=== PATIENT | female | born 1955 | race Caucasian/White ===

== ENCOUNTER → 2017-04-28 | Outpatient (CLI) | payer BC ==
[2017-04-28 10:38] LABS: HCT 37.8 % (34.0-46.0); HGB 12.1 gm/dL (11.4-16.0); MCH 28.7 pg (25.0-35.0); MCHC 32.1 g/dL (31.0-37.0); MCV 89.6 fL (80.0-100.0); Mean Platelet Volume 6.5; Platelet Count 499 k/uL (150-450); RBC 4.22 m/uL (3.80-5.40); RDW 12.6 % (11.5-15.5); WBC 9.3 k/uL (3.8-10.6)
== END | disposition home or self-care (01) ==
LOC: LABWHC1 10:07
PROVIDERS: ATTEND Internal Medicine
DX: K57.92 Diverticulitis of intestine, part unspecified, without perforation or abscess without bleeding (principal)
CPT/HCPCS: 36415; 85027

== ENCOUNTER → 2017-06-16 | Outpatient (CLI) | payer BC ==
--- NOTE | 2017-06-16 10:58 | MM ---
Reason for exam: screening (asymptomatic). Last mammogram was performed 10 years and 4 months ago. Physical Findings: A clinical breast exam by your physician is recommended on an annual basis and results should be correlated with mammographic findings. MG Screening Mammo w CAD Bilateral CC and MLO view(s) were taken. Prior study comparison: February 22, 2007, bilateral screening mammogram w/CAD. October 21, 2005, bilateral screening mammogram w/CAD. There are scattered fibroglandular densities. Finding: There are typically benign round, regional calcifications in both breasts. There is no discrete abnormality. ASSESSMENT: Benign, BI-RAD 2 RECOMMENDATION: Routine screening mammogram of both breasts in 1 year.
== END | disposition home or self-care (01) ==
LOC: RADMAMWWP 07:11
PROVIDERS: ATTEND Internal Medicine
DX: Z12.31 Encounter for screening mammogram for malignant neoplasm of breast (principal)
CPT/HCPCS: 77067

== ENCOUNTER → 2018-07-07 | Outpatient (CLI) | payer BC ==
--- NOTE | 2018-07-10 12:12 | MM ---
Reason for exam: screening (asymptomatic). Last mammogram was performed 1 year and 1 month ago. Physical Findings: A clinical breast exam by your physician is recommended on an annual basis and results should be correlated with mammographic findings. MG Screening Mammo w CAD Bilateral CC and MLO view(s) were taken. Prior study comparison: June 16, 2017, bilateral MG screening mammo w CAD. February 22, 2007, bilateral screening mammogram w/CAD. The breast tissue is heterogeneously dense. This may lower the sensitivity of mammography. No suspicious abnormality on the left. Focal asymmetry of the right upper outer quadrant, 8cm from nipple measuring 1.4cm. ASSESSMENT: Incomplete: need additional imaging evaluation, BI-RAD 0 RECOMMENDATION: Ultrasound of the right breast. (upper outer quadrant) [facility] will attempt to contact patient to return for ultrasound.
== END | disposition home or self-care (01) ==
LOC: RADMAMWWP 16:18
PROVIDERS: ATTEND Internal Medicine
DX: Z12.31 Encounter for screening mammogram for malignant neoplasm of breast (principal)
CPT/HCPCS: 77067

== ENCOUNTER → 2018-07-21 | Outpatient (CLI) | payer BC ==
--- NOTE | 2018-07-24 09:47 | USB ---
Reason for exam: additional evaluation requested from abnormal screening. Physical Findings: Nurse did not find any significant physical abnormalities on exam. US Breast Workup Limited RT Right limited breast ultrasound including focal area of concern, retroareolar and axilla demonstrates no cystic or solid lesion seen. These results were verbally communicated with the patient and result sheet given to the patient on 07/21/18. ASSESSMENT: Negative, BI-RAD 1 RECOMMENDATION: Return to routine screening mammogram schedule for both breasts.
== END | disposition home or self-care (01) ==
LOC: RADUSWWP 14:59
PROVIDERS: ATTEND Internal Medicine
DX: R92.8 Other abnormal and inconclusive findings on diagnostic imaging of breast (principal)

== ENCOUNTER 2018-09-13 06:09 | Emergency (ER) | payer BC ==
[2018-09-13 06:17] VITALS: RESP 19
--- NOTE | 2018-09-13 06:46 | XR ---
EXAM: XR Abdomen, 1 View CLINICAL HISTORY: ITS.REASON XR Reason: abdominal pain TECHNIQUE: Frontal view of the abdomen/pelvis. COMPARISON: No relevant prior studies available. FINDINGS: Gastrointestinal tract: Nonspecific bowel gas pattern. Bones/joints: No acute fracture. IMPRESSION: Nonspecific bowel gas pattern.
[2018-09-13 06:47] LABS: Basophils # (A) 0.1 k/uL (0-0.2); Basophils % (A) 0 %; Eosinophils # (A) 0.2 k/uL (0-0.7); Eosinophils % (A) 2 %; HCT 38.8 % (34.0-46.0); HGB 12.7 gm/dL (11.4-16.0); Lymphocytes # (A) 2.5 k/uL (1.0-4.8); Lymphocytes % (A) 18 %; MCH 28.6 pg (25.0-35.0); MCHC 32.6 g/dL (31.0-37.0); MCV 87.8 fL (80.0-100.0); Mean Platelet Volume 7.2; Monocytes # (A) 0.7 k/uL (0-1.0); Monocytes % (A) 5 %; Neutrophils % (A) 74 %; Platelet Count 358 k/uL (150-450); RBC 4.42 m/uL (3.80-5.40); RDW 12.8 % (11.5-15.5); WBC 13.5 k/uL (3.8-10.6)
[2018-09-13 06:52] LABS: ALT 24 U/L (9-52); AST 21 U/L (14-36); Albumin 4.2 g/dL (3.5-5.0); Alkaline Phosphatase 98 U/L (38-126); Amylase 40 U/L (30-110); Anion Gap 11 mmol/L; Blood Urea Nitrogen 11 mg/dL (7-17); Calcium 9.9 mg/dL (8.4-10.2); Carbon Dioxide 25 mmol/L (22-30); Chloride 104 mmol/L (98-107); Glucose 110 mg/dL (74-99); Lipase 78 U/L (23-300); Potassium 4.2 mmol/L (3.5-5.1); Sodium 140 mmol/L (137-145); Total Bilirubin 1.1 mg/dL (0.2-1.3)
[2018-09-13 07:17] LABS: Appearance,Urine Clear (Clear); Bacteria,Urine Rare /hpf; Bilirubin,Urine Negative (Negative); Blood,Urine Small (Negative); Color,Urine Yellow; Glucose,Urine (UA) Negative (Negative); Hyaline Casts,Urine 14 /lpf (0-2); Ketones,Urine Negative (Negative); Leukocyte Esterase,Urine Moderate (Negative); Mucus,Urine Few /hpf; Nitrite,Urine Negative (Negative); Protein,Urine Trace (Negative); RBC,Urine 9 /hpf (0-5); Specific Gravity,Urine 1.021 (1.001-1.035); Squamous Epithelial Cell,Urine 4 /hpf (0-4); Transitional Epi Cells,Urine <1 /hpf (0-1); WBC,Urine 7 /hpf (0-5)
[2018-09-13] MEDS ORDERED: KETOROLAC 30 MG/ML 1 ML VIAL IVP STA (07:23)
--- NOTE | 2018-09-13 07:23 | ED ---
General Adult HPI - General Chief complaint: Abdominal Pain Stated complaint: abd pain Time Seen by Provider: 09/13/18 07:11 Source: patient Mode of arrival: ambulatory Limitations: no limitations - History of Present Illness Initial comments: Dictation was produced using [employer] dictation software. please excuse any grammatical, word or spelling errors. Chief Complaint: 62-year-old female past medical history diverticulitis, gastritis, GERD presents with abdominal pain. History of Present Illness: Patient reports that she's been having 3 days of abdominal pain. She has history of diverticulitis. Patient's brother is a doctor and remote hernia prescription for Augmentin. She was treated with Augmentin the past for diverticulitis. Patient states she's been having abdominal pain since Tuesday. She states pain reminds her of diverticulitis however the pain is diffuse located to the suprapubic area. Patient denies any vaginal bleeding or vaginal discharge. No diarrhea she had a regular bowel movement yesterday. Patient feels nauseous but no vomiting. She does complain of fevers. She has not tried taking any medications. She completed one day of antibiotic therapy however she reports that her pain symptoms are persistent and that improved. Denies any pattern with food intake. The ROS documented in this emergency department record has been reviewed and confirmed by me. Those systems with pertinent positive or negative responses have been documented in the HPI. All other systems are other negative and/or noncontributory. PHYSICAL EXAM: General Impression: Alert and oriented x3, not in acute distress HEENT: Normocephalic atraumatic, extra-ocular movements intact, pupils equal and reactive to light bilaterally, mucous membranes moist. Cardiovascular: Heart regular rate and rhythm, S1&S2 audible, no murmurs, rubs or gallops Chest: Lungs clear to auscultation bilaterally, no rhonchi, no wheeze, no rales Abdomen: Bowel sounds present, abdomen soft, diffuse abdominal tenderness, non-distended, no organomegaly Musculoskeletal: Pulses present and equal in all extremities, no peripheral edema Motor: no focal deficits noted Neurological: CN II-XII grossly intact, no focal motor or sensory deficits noted Skin: Intact with no visualized rashes Psych: Normal affect and mood ED course: 62-year-old female presents with chief complaint of abdominal pain. She has a history of diverticulitis. Vital signs upon arrival are within acceptable limits. Clinical presentation is not classic for diverticulitis however patient persisted her symptoms are similar to what she expressing the past. Patient fully one day of Augmentin therapy for diverticulitis with no improvement of symptoms. She decision-making made with patient she requests CT abdomen and pelvis be performed. Laboratory evaluation obtained. Leukocytosis of 13.5. Rest CBC unremarkable. Metabolic panel is negative. Urinalysis is suggestive of urinary tract infection.KUB x-ray is nonacute. CT of the abdomen and pelvis shows uncomplicated sigmoid diverticulitis. Patient is well- appearing not showing any signs of sepsis. Patient tolerating by mouth at bedside. Patient prescription for Augmentin because she says lost her prescription. She has by mouth analgesics at home to take whenever needed. Return parameters discussed. Patient clear for discharge. Urine cultures pending patient told to follow-up with urine cultures. She is currently Augmentin which will likely cover for urinary tract infection as well. EKG interpretation: Ventricular rate 71, normal sinus rhythm, CT interval 140, QRS 82, QTC 419. No CT prolongation, no QTC prolongation, no ST or T-wave changes noted. Overall, this EKG is unremarkable - Related Data Home Medications Medication Instructions Recorded Confirmed Omeprazole [PriLOSEC] 20 mg PO AC-BRKFST 02/08/17 09/13/18 Amoxic-Pot Clav 875-125Mg 1 tab PO Q12HR 09/13/18 09/13/18 [Augmentin 875-125] Cholecalciferol [Vitamin D3 (25 5,000 unit PO DAILY 09/13/18 09/13/18 Mcg = 1000 Iu)] Escitalopram [Lexapro] 20 mg PO DAILY 09/13/18 09/13/18 Previous Rx's Medication Instructions Recorded Amoxicillin/Potassium Clav 1 tab PO BID 10 Days #20 tab 09/13/18 [Augmentin 875-125 Tablet] Allergies Allergy/AdvReac Type Severity Reaction Status Date / Time No Known Allergies Allergy Verified 09/13/18 07:34 Review of Systems ROS Statement: Those systems with pertinent positive or pertinent negative responses have been documented in the HPI. ROS Other: All systems not noted in ROS Statement are negative. Past Medical History Past Medical History: Chest Pain / Angina, GERD/Reflux Additional Past Medical History / Comment(s): Gastritis, diverticulosis, diverticulitis. History of Any Multi-Drug Resistant Organisms: None Reported Past Surgical History: Orthopedic Surgery Additional Past Surgical History / Comment(s): EGD, COLONOSCOPY, OVARIAN CYST (1991). right knee torn meniscus, Past Anesthesia/Blood Transfusion Reactions: No Reported Reaction Past Psychological History: Anxiety Smoking Status: Never smoker Past Alcohol Use History: Daily Past Drug Use History: None Reported - Past Family History Mother Family Medical History: Deep Vein Thrombosis (DVT) Additional Family Medical History / Comment(s): Mother is . Father Family Medical History: Cancer, Congestive Heart Failure (CHF) Additional Family Medical History / Comment(s): LYMPHOMA. Father is Daughter(s) Family Medical History: Cancer Additional Family Medical History / Comment(s): THYROID CANCER General Exam Limitations: no limitations Course Vital Signs 09/13/18 06:13 Temperature 98.2 F Pulse Rate 81 Respiratory 19 Rate Blood Pressure 128/77 O2 Sat by Pulse 96 Oximetry Medical Decision Making - Lab Data Result diagrams: 09/13/18 06:31 09/13/18 06:31 Lab Results 09/13/18 09/13/18 09/13/18 Range/Units 06:31 06:31 06:33 WBC 13.5 H (3.8-10.6) k/uL RBC 4.42 (3.80-5.40) m/uL Hgb 12.7 (11.4-16.0) gm/dL Hct 38.8 (34.0-46.0) % MCV 87.8 (80.0-100.0) fL MCH 28.6 (25.0-35.0) pg MCHC 32.6 (31.0-37.0) g/dL RDW 12.8 (11.5-15.5) % Plt Count 358 (150-450) k/uL Neutrophils % 74 % Lymphocytes % 18 % Monocytes % 5 % Eosinophils % 2 % Basophils % 0 % Neutrophils # 10.0 H (1.3-7.7) k/uL Lymphocytes # 2.5 (1.0-4.8) k/uL Monocytes # 0.7 (0-1.0) k/uL Eosinophils # 0.2 (0-0.7) k/uL Basophils # 0.1 (0-0.2) k/uL Sodium 140 (137-145) mmol/L Potassium 4.2 (3.5-5.1) mmol/L Chloride 104 (98-107) mmol/L Carbon Dioxide 25 (22-30) mmol/L Anion Gap 11 mmol/L BUN 11 (7-17) mg/dL Creatinine 0.53 (0.52-1.04) mg/dL Est GFR (CKD-EPI)AfAm >90 (>60 ml/min/1.73 sqM) Est GFR (CKD-EPI)NonAf >90 (>60 ml/min/1.73 sqM) Glucose 110 H (74-99) mg/dL Calcium 9.9 (8.4-10.2) mg/dL Total Bilirubin 1.1 (0.2-1.3) mg/dL AST 21 (14-36) U/L ALT 24 (9-52) U/L Alkaline Phosphatase 98 (38-126) U/L Total Protein 9.0 H (6.3-8.2) g/dL Albumin 4.2 (3.5-5.0) g/dL Amylase 40 (30-110) U/L Lipase 78 (23-300) U/L Urine Color Yellow Urine Appearance Clear (Clear) Urine pH 6.0 (5.0-8.0) Ur Specific [place] 1.021 (1.001-1.035) Urine Protein Trace H (Negative) Urine Glucose (UA) Negative (Negative) Urine Ketones Negative (Negative) Urine Blood Small H (Negative) Urine Nitrite Negative (Negative) Urine Bilirubin Negative (Negative) Urine Urobilinogen 2.0 (<2.0) mg/dL Ur Leukocyte Esterase Moderate H (Negative) Urine RBC 9 H (0-5) /hpf Urine WBC 7 H (0-5) /hpf Ur Squamous Epith Cells 4 (0-4) /hpf Ur Transition Epith Cell <1 (0-1) /hpf Urine Bacteria Rare H (None) /hpf Hyaline Casts 14 H (0-2) /lpf Urine Mucus Few H (None) /hpf Disposition Clinical Impression: Diverticulitis Disposition: HOME SELF-CARE Condition: Good Instructions (If sedation given, give patient instructions): Diverticulitis (ED) Prescriptions: Amoxicillin/Potassium Clav [Augmentin 875-125 Tablet] 1 tab PO BID 10 Days #20 tab Is patient prescribed a controlled substance at d/c from ED?: No Referrals: Nj Pineda MD [Primary Care Provider] - 1-2 days Time of Disposition: 08:26
--- NOTE | 2018-09-13 08:09 | CT ---
EXAMINATION TYPE: CT abdomen pelvis w con DATE OF EXAM: 09/13/2018 COMPARISON: 04/14/2017 HISTORY: Abd pain CT DLP: 885.8 mGycm CONTRAST: CT scan of the abdomen and pelvis is performed without Oral Contrast and with IV Contrast, patient in jected with 100 mL of Isovue 300. FINDINGS: LUNG BASES-: No visible nodule. No infiltrate. LIVER/GB: No calcified gallstones. No space occupying hepatic lesion. Biliary tree is of normal ca liber. PANCREAS: No inflammation. No distinct mass. SPLEEN: No splenic enlargement. No lesion seen. ADRENALS: No nodule. No thickening. KIDNEYS/BLADDER: No hydronephrosis. No nephrolithiasis. No distinct renal mass. Urinary bladder g rossly unremarkable. BOWEL: There is mild inflammatory change about the sigmoid colon compatible with a mild acute sigmoid diverticulitis. No evidence of perforation or abscess. Mild small bowel ileus. Remainder of the colo n and small bowel are of normal caliber. Normal appendix. GENITAL ORGANS: Hysterectomy changes noted. LYMPH NODES: No greater than 1cm abdominal or pelvic lymph nodes are appreciated. AORTA: No significant abnormality. OSSEOUS STRUCTURES: No significant abnormality is seen. OTHER: No significant additional abnormality is seen. IMPRESSION: 1. Mild uncomplicated sigmoid diverticulitis.
[2018-09-13 08:44] VITALS: BP 131/76; PULSE 79; TEMP 98.1
== END 2018-09-13 08:44 | disposition home or self-care (01) ==
LOC: EC 06:09
DX: K57.32 Diverticulitis of large intestine without perforation or abscess without bleeding (principal); D72.829 Elevated white blood cell count, unspecified; K21.9 Gastro-esophageal reflux disease without esophagitis; F41.9 Anxiety disorder, unspecified; Z79.899 Other long term (current) drug therapy
CPT/HCPCS: 36415; 93005; 80053; 82150; 83690; 85025; 81001; 74018; 74177; 99284; 96374; J1885; Q9967

== ENCOUNTER 2018-09-25 02:45 | Inpatient (IN) | payer MEDICARE, BC ==
[2018-09-25] MEDS ORDERED: MORPHINE SULFATE 4 MG/ML SYRINGE IVP STA (03:15)
[2018-09-25] MEDS: SODIUM CHLORIDE 0.9% 500 ML 500 ML IV SCH (03:19)
[2018-09-25 03:28] LABS: Basophils # (A) 0.1 k/uL (0-0.2); Basophils % (A) 0 %; Eosinophils # (A) 0.2 k/uL (0-0.7); Eosinophils % (A) 1 %; HCT 37.8 % (34.0-46.0); Lymphocytes # (A) 2.8 k/uL (1.0-4.8); Lymphocytes % (A) 20 %; MCHC 31.7 g/dL (31.0-37.0); MCV 88.3 fL (80.0-100.0); Mean Platelet Volume 6.7; Monocytes # (A) 0.8 k/uL (0-1.0); Monocytes % (A) 6 %; Neutrophils # (A) 9.7 k/uL (1.3-7.7); Neutrophils % (A) 71 %; Platelet Count 404 k/uL (150-450); RBC 4.28 m/uL (3.80-5.40); RDW 12.7 % (11.5-15.5); WBC 13.7 k/uL (3.8-10.6)
[2018-09-25 03:36] LABS: Appearance,Urine Clear (Clear); Bilirubin,Urine Negative (Negative); Blood,Urine Trace (Negative); Color,Urine Yellow; Glucose,Urine (UA) Negative (Negative); Ketones,Urine Negative (Negative); Leukocyte Esterase,Urine Negative (Negative); Mucus,Urine Rare /hpf; Nitrite,Urine Negative (Negative); Protein,Urine Negative (Negative); RBC,Urine 2 /hpf (0-5); Specific Gravity,Urine 1.015 (1.001-1.035); Squamous Epithelial Cell,Urine 1 /hpf (0-4); Urobilinogen,Urine <2.0 mg/dL (<2.0); WBC,Urine 1 /hpf (0-5)
[2018-09-25 03:43] LABS: ALT 13 U/L (9-52); AST 14 U/L (14-36); African American GFR (CKD) >90 (>60 ml/min/1.73 sqM); Albumin 4.1 g/dL (3.5-5.0); Alkaline Phosphatase 99 U/L (38-126); Blood Urea Nitrogen 11 mg/dL (7-17); Calcium 9.7 mg/dL (8.4-10.2); Carbon Dioxide 28 mmol/L (22-30); Chloride 102 mmol/L (98-107); Glucose 115 mg/dL (74-99); Total Bilirubin 0.5 mg/dL (0.2-1.3); Total Protein 8.5 g/dL (6.3-8.2)
[2018-09-25 03:50] LABS: Anion Gap 9 mmol/L; Potassium 4.4 mmol/L (3.5-5.1); Sodium 139 mmol/L (137-145)
--- NOTE | 2018-09-25 04:25 | CT ---
EXAM: CT Abdomen and Pelvis With Intravenous Contrast CLINICAL HISTORY: ITS.REASON CT Reason: Pain diverticulitis last wee TECHNIQUE: Axial computed tomography images of the abdomen and pelvis with intravenous contrast. CTDI is 18 mGy and DLP is the 140s 7 mGy-cm. This CT exam was performed using one or more of the following dose reduction techniques: automated exposure control, adjustment of the mA and/or kV according to patient size, and/or use of iterative reconstruction technique. COMPARISON: 04/14/17 CT abdomen FINDINGS: Lung bases: No mass. No consolidation. ABDOMEN: Liver: Unremarkable. Gallbladder and bile ducts: Unremarkable. Pancreas: Unremarkable. Spleen: Unremarkable. Adrenals: Unremarkable. Kidneys and ureters: No hydronephrosis. Stomach and bowel: No bowel obstruction. Thickened sigmoid colon with underlying diverticulosis and surrounding inflammatory process. PELVIS: Appendix: No evidence of appendicitis. Bladder: Unremarkable. Reproductive: Unremarkable. ABDOMEN and PELVIS: Intraperitoneal space: Trace pelvic free fluid, likely reactive. Bones/joints: No acute fractures. Soft tissues: Unremarkable. Vasculature: No abdominal aortic aneurysm. Lymph nodes: No enlarged lymph nodes. IMPRESSION: Acute sigmoid diverticulitis. No abscess, perforation, or bowel obstruction.
[2018-09-25] MEDS ORDERED: metroNIDAZOLE-NS PMX 500 MG in SALINE 1 100ML.BAG IVPB STA (04:45)
[2018-09-25] MEDS ORDERED: cefTRIAXone IN SWFI 1,000 MG/10 ML SYRINGE IVP STA (04:45)
--- NOTE | 2018-09-25 04:48 | ED ---
Abdominal Pain HPI - General Chief Complaint: Abdominal Pain Stated Complaint: Abd pain Time Seen by Provider: 09/25/18 03:14 Source: patient Mode of arrival: ambulatory Limitations: physical limitation - History of Present Illness Initial Comments: Lara is a 62-year-old female who presents to the emergency department today for evaluation of left lower quadrant abdominal pain and suprapubic abdominal pain. Patient reports that she was seen and evaluated the end of August and diagnosed with diverticulitis she completed a course of oral Augmentin which she thinks helped and she was pain-free for a few days however since completing the antibiotic last week she's had progressively worsening pain. Pain is associated with intermittent waves of nausea, patient reports she's had soft stools and she was diagnosed with diverticulitis previously and given antibiotics. She denies any constipation. Patient does feel that the pain is worse with any straining have a bowel movement or urinate. Port subjective fevers no chills. Patient has had diverticulitis in the past she's never had any bowel surgeries. - Related Data Home Medications Medication Instructions Recorded Confirmed Omeprazole [PriLOSEC] 20 mg PO AC-BRKFST 02/08/17 09/25/18 Cholecalciferol [Vitamin D3 (25 5,000 unit PO DAILY 09/13/18 09/25/18 Mcg = 1000 Iu)] Escitalopram [Lexapro] 20 mg PO DAILY 09/13/18 09/25/18 Previous Rx's Medication Instructions Recorded Amoxicillin/Potassium Clav 1 tab PO BID 10 Days #20 tab 09/13/18 [Augmentin 875-125 Tablet] Allergies Allergy/AdvReac Type Severity Reaction Status Date / Time No Known Allergies Allergy Verified 09/25/18 02:53 Review of Systems ROS Statement: Those systems with pertinent positive or pertinent negative responses have been documented in the HPI. ROS Other: All systems not noted in ROS Statement are negative. Past Medical History Past Medical History: Chest Pain / Angina, GERD/Reflux Additional Past Medical History / Comment(s): Gastritis, diverticulosis, diverti culitis. History of Any Multi-Drug Resistant Organisms: None Reported Past Surgical History: Orthopedic Surgery Additional Past Surgical History / Comment(s): EGD, COLONOSCOPY, OVARIAN CYST (1991). right knee torn meniscus, Past Anesthesia/Blood Transfusion Reactions: No Reported Reaction Past Psychological History: Anxiety Smoking Status: Never smoker Past Alcohol Use History: Daily Past Drug Use History: None Reported - Past Family History Mother Family Medical History: Deep Vein Thrombosis (DVT) Additional Family Medical History / Comment(s): Mother is . Father Family Medical History: Cancer, Congestive Heart Failure (CHF) Additional Family Medical History / Comment(s): LYMPHOMA. Father is Daughter(s) Family Medical History: Cancer Additional Family Medical History / Comment(s): THYROID CANCER General Exam - General Exam Comments Initial Comments: Physical Exam GENERAL: Patient is well-developed and well-nourished. Patient is nontoxic and well- hydrated and is in no distress. Appears uncomfortable HENT: Normocephalic, Atraumatic. EYES: PERRL, EOMI PULMONARY: Unlabored respirations. No audible rales rhonchi or wheezing was noted. CARDIOVASCULAR: There is a regular rate and rhythm without any murmurs gallops or rubs. ABDOMEN: Soft with normal bowel sounds. Tenderness to palpation of the bilateral lower quadrants worse on the left and suprapubic region SKIN: Skin is clear with no lesions or rashes and otherwise unremarkable. : Deferred NEUROLOGIC: Patient is alert and oriented x3. Moving all extremities spontaneously MUSCULOSKELETAL: Normal extremities with adequate strength and full range of motion. No lower extremity swelling or edema. No calf tenderness. PSYCHIATRIC: Normal psychiatric evaluation. Limitations: physical limitation Course Vital Signs 09/25/18 09/25/18 02:46 05:04 Temperature 98.2 F 99.1 F Pulse Rate 85 71 Respiratory 18 18 Rate Blood Pressure 132/84 123/73 O2 Sat by Pulse 95 95 Oximetry Medical Decision Making - Medical Decision Making The patient was seen and evaluated history is obtained from the patient and at bedside and review of medical record neck signs pulse is 62-year-old female with history concerning for recurrent versus incompletely treated diverticulitis. Repeat labs and imaging were obtained. Labs reveal leukocytosis, CT imaging confirms an uncomplicated diverticulitis with no signs of perforation or abscess. Given the patient is arty completed a course of Augmentin I do feel she warrants admission to the hospital for IV antibiotics. This plan was discussed with the patient who is agreeable. Patient reports minimal improvement in her pain with morphine was given a dose of Dilaudid. Patient care was discussed with admitting physician Dr. Gómez who accepts admission for recurrent diverticulitis which failed outpatient oral antibiotic therapy. - Lab Data Result diagrams: 09/25/18 03:15 09/25/18 03:15 Lab Results 09/25/18 09/25/18 09/25/18 Range/Units 03:15 03:15 03:15 WBC 13.7 H (3.8-10.6) k/uL RBC 4.28 (3.80-5.40) m/uL Hgb 12.0 (11.4-16.0) gm/dL Hct 37.8 (34.0-46.0) % MCV 88.3 (80.0-100.0) fL MCH 28.0 (25.0-35.0) pg MCHC 31.7 (31.0-37.0) g/dL RDW 12.7 (11.5-15.5) % Plt Count 404 (150-450) k/uL Neutrophils % 71 % Lymphocytes % 20 % Monocytes % 6 % Eosinophils % 1 % Basophils % 0 % Neutrophils # 9.7 H (1.3-7.7) k/uL Lymphocytes # 2.8 (1.0-4.8) k/uL Monocytes # 0.8 (0-1.0) k/uL Eosinophils # 0.2 (0-0.7) k/uL Basophils # 0.1 (0-0.2) k/uL Sodium 139 (137-145) mmol/L Potassium 4.4 (3.5-5.1) mmol/L Chloride 102 (98-107) mmol/L Carbon Dioxide 28 (22-30) mmol/L Anion Gap 9 mmol/L BUN 11 (7-17) mg/dL Creatinine 0.58 (0.52-1.04) mg/dL Est GFR (CKD-EPI)AfAm >90 (>60 ml/min/1.73 sqM) Est GFR (CKD-EPI)NonAf >90 (>60 ml/min/1.73 sqM) Glucose 115 H (74-99) mg/dL Plasma Lactic Acid [place] 1.1 (0.7-2.0) mmol/L Calcium 9.7 (8.4-10.2) mg/dL Total Bilirubin 0.5 (0.2-1.3) mg/dL AST 14 (14-36) U/L ALT 13 (9-52) U/L Alkaline Phosphatase 99 (38-126) U/L Total Protein 8.5 H (6.3-8.2) g/dL Albumin 4.1 (3.5-5.0) g/dL Urine Color Urine Appearance (Clear) Urine pH (5.0-8.0) Ur Specific [place] (1.001-1.035) Urine Protein (Negative) Urine Glucose (UA) (Negative) Urine Ketones (Negative) Urine Blood (Negative) Urine Nitrite (Negative) Urine Bilirubin (Negative) Urine Urobilinogen (<2.0) mg/dL Ur Leukocyte Esterase (Negative) Urine RBC (0-5) /hpf Urine WBC (0-5) /hpf Ur Squamous Epith Cells (0-4) /hpf Urine Mucus (None) /hpf 09/25/18 Range/Units 03:15 WBC (3.8-10.6) k/uL RBC (3.80-5.40) m/uL Hgb (11.4-16.0) gm/dL Hct (34.0-46.0) % MCV (80.0-100.0) fL MCH (25.0-35.0) pg MCHC (31.0-37.0) g/dL RDW (11.5-15.5) % Plt Count (150-450) k/uL Neutrophils % % Lymphocytes % % Monocytes % % Eosinophils % % Basophils % % Neutrophils # (1.3-7.7) k/uL Lymphocytes # (1.0-4.8) k/uL Monocytes # (0-1.0) k/uL Eosinophils # (0-0.7) k/uL Basophils # (0-0.2) k/uL Sodium (137-145) mmol/L Potassium (3.5-5.1) mmol/L Chloride (98-107) mmol/L Carbon Dioxide (22-30) mmol/L Anion Gap mmol/L BUN (7-17) mg/dL Creatinine (0.52-1.04) mg/dL Est GFR (CKD-EPI)AfAm (>60 ml/min/1.73 sqM) Est GFR (CKD-EPI)NonAf (>60 ml/min/1.73 sqM) Glucose (74-99) mg/dL Plasma Lactic Acid [place] (0.7-2.0) mmol/L Calcium (8.4-10.2) mg/dL Total Bilirubin (0.2-1.3) mg/dL AST (14-36) U/L ALT (9-52) U/L Alkaline Phosphatase (38-126) U/L Total Protein (6.3-8.2) g/dL Albumin (3.5-5.0) g/dL Urine Color Yellow Urine Appearance Clear (Clear) Urine pH 6.0 (5.0-8.0) Ur Specific [place] 1.015 (1.001-1.035) Urine Protein Negative (Negative) Urine Glucose (UA) Negative (Negative) Urine Ketones Negative (Negative) Urine Blood Trace H (Negative) Urine Nitrite Negative (Negative) Urine Bilirubin Negative (Negative) Urine Urobilinogen <2.0 (<2.0) mg/dL Ur Leukocyte Esterase Negative (Negative) Urine RBC 2 (0-5) /hpf Urine WBC 1 (0-5) /hpf Ur Squamous Epith Cells 1 (0-4) /hpf Urine Mucus Rare H (None) /hpf Disposition Clinical Impression: Diverticulitis Disposition: ADMITTED IP TO THIS [facility] Condition: Stable Is patient prescribed a controlled substance at d/c from ED?: No Referrals: Nj Pineda MD [Primary Care Provider] - 1-2 days
[2018-09-25] MEDS ORDERED: HYDROmorphone 0.5 MG/0.5 ML SYRINGE IVP STA (05:29)
[2018-09-25] MEDS ORDERED: NALOXONE 0.4 MG/ML 1 ML VIAL IV PRN (05:35)
[2018-09-25] MEDS ORDERED: HYDROcodone/APAP 5-325MG 1 EACH TAB PO PRN (07:10)
[2018-09-25] MEDS ORDERED: SODIUM CHLORIDE 0.9% 1,000 ML IV SCH (07:15)
--- NOTE | 2018-09-25 07:31 | P.HPIM ---
History of Present Illness H&P Date: 09/25/18 Chief Complaint: Lower abdominal pain 62-year-old female with history of recurrent diverticulitis since 2007. Chronic GERD Patient coming in today due to worsening lower abdominal pain. She describes as sharp 8 out of 10 radiating to the rest of the abdomen but mainly in the lower abdomen. No specific exacerbating or relieving factors, pain associated with nausea but no vomiting. Patient denies any diarrhea or GI bleeding. Patient denies any urinary changes. Denies any fevers reports some chills. Patient was seen in the ED 2 weeks ago and was diagnosed with recurrent diverticulitis she was placed on some Augmentin for 10 days which helped improve the pain toward the end of her antibiotic course which she finished 4 days ago however pain got worse again 2 days ago and she decided to come to the hospital for evaluation. Otherwise patient denies any chest pain or trouble breathing denies any coughing denies any focal neurologic deficits. Patient does report recent history of diarrhea while taking the antibiotic however this was resolved once she finished antibiotic course. Malick martin denies any history of C. diff. In the ED computed tomography scan of the abdomen confirmed acute diverticulitis with no observed, complications Review of Systems Pertinent positives as noted in HPI. All other systems were reviewed and are negative Past Medical History Past Medical History: Chest Pain / Angina, GERD/Reflux Additional Past Medical History / Comment(s): Gastritis, diverticulosis, diverticulitis. History of Any Multi-Drug Resistant Organisms: None Reported Past Surgical History: Orthopedic Surgery Additional Past Surgical History / Comment(s): EGD, COLONOSCOPY, OVARIAN CYST ( 1991). right knee torn meniscus, Past Anesthesia/Blood Transfusion Reactions: No Reported Reaction Past Psychological History: Anxiety Smoking Status: Never smoker Past Alcohol Use History: Daily Past Drug Use History: None Reported - Past Family History Mother Family Medical History: Deep Vein Thrombosis (DVT) Additional Family Medical History / Comment(s): Mother is . Father Family Medical History: Cancer, Congestive Heart Failure (CHF) Additional Family Medical History / Comment(s): LYMPHOMA. Father is Daughter(s) Family Medical History: Cancer Additional Family Medical History / Comment(s): THYROID CANCER Medications and Allergies Home Medications Medication Instructions Recorded Confirmed Type Omeprazole [PriLOSEC] 20 mg PO -BRKFST 02/08/17 09/25/18 History Amoxicillin/Potassium Clav 1 tab PO BID 10 Days #20 tab 09/13/18 09/25/18 Rx [Augmentin 875-125 Tablet] Cholecalciferol [Vitamin D3 (25 5,000 unit PO DAILY 09/13/18 09/25/18 History Mcg = 1000 Iu)] Escitalopram [Lexapro] 20 mg PO DAILY 09/13/18 09/25/18 History Allergies Allergy/AdvReac Type Severity Reaction Status Date / Time No Known Allergies Allergy Verified 09/25/18 02:53 Physical Exam Vitals: Vital Signs Temp Pulse Resp BP Pulse Ox 09/25/18 05:04 99.1 F 71 18 123/73 95 09/25/18 02:46 98.2 F 85 18 132/84 95 Intake and Output 09/24/18 09/24/18 09/25/18 14:59 22:59 06:59 Other: Weight 75.2 kg Constitutional: No acute distress, conversant, pleasant Eyes: Anicteric sclerae, moist conjunctiva, no lid-lag Pupils equal round reactive to light ENMT: NC/AT Oropharynx clear, no erythema, exudates Neck: Supple, FROM, no masses, or JVD No carotid bruits No thyromegaly Lungs: Clear to auscultation Clear to percussion Normal respiratory effort, no accessory muscle use Cardiovascular: Heart regular in rate and rhythm, No murmurs, gallops, or rubs No peripheral edema Abdominal: Soft, tenderness to palpation of the suprapubic region with tenderness to percussion, tenderness over the left lower quadrant no guarding no rebound no rigidity Abdomen moving with respiration Normoactive bowel sounds No hepatomegaly, No splenomegaly No palpable mass No abdominal wall hernia noted Skin: Normal temperature, tone, texture, turgor No induration No subcutaneous nodules No rash, lesions No ulcers Extremities: No digital cyanosis No clubbing Pedal pulses intact and symmetrical Radial pulses intact and symmetrical No calf tenderness Psychiatric: Alert and oriented to person, place and time Appropriate affect fair judgment Neuro Muscles Strength 5/5 in all 4 extremities Sensation to light touch grossly present throughout Cranial nerves II-XII grossly intact No focal sensory deficits Lymphatics: no palpable cervical or supraclavicular , or inguinal lymph nodes Results CBC & Chem 7: 09/25/18 03:15 09/25/18 03:15 Labs: Abnormal Lab Results - Last 24 Hours (Table) 09/25/18 09/25/18 09/25/18 Range/Units 03:15 03:15 03:15 WBC 13.7 H (3.8-10.6) k/uL Neutrophils # 9.7 H (1.3-7.7) k/uL Glucose 115 H (74-99) mg/dL Total Protein 8.5 H (6.3-8.2) g/dL Urine Blood Trace H (Negative) Urine Mucus Rare H (None) /hpf Assessment and Plan Assessment: 62-year-old female with past medical history of chronic GERD and recurrent diverticulitis Patient presented as an inpatient with anticipated length of stay more than 48 hours for acute diverticulitis failed outpatient therapy. Plan: Recurrent acute diverticulitis failed outpatient therapy Follow cultures Flagyl and Rocephin IV Pain control with Kirvin Clear liquid diet GERD continue with PPI DVT prophylaxis heparin subcu 3 times a day Preformed a thorough record review from recent ER visit where she was diagnosed with acute diverticulitis and was given 10 day course of Augmentin Surrogate decision-maker: Patient CODE STATUS: Full code Discussed with: Patient, ER Anticipated discharge: 48-[address]: Home A total of 60 minutes was spent on the care of this complex patient more than 50% of the time was spent in counseling and care coordination.
[2018-09-25] MEDS: HEPARIN SODIUM,PORCINE 5,000 UNIT/ML 1 ML VIAL SQ SCH ×3 (09:02→23:28)
[2018-09-25] MEDS: PANTOPRAZOLE 40 MG TABLET PO SCH (09:02)
[2018-09-25] MEDS: ESCITALOPRAM 20 MG TAB PO SCH (09:02)
[2018-09-25 09:19] VITALS: BMI 28.4
[2018-09-25] MEDS: DEXTROSE 5%-0.45% NACL 1,000 ML IV SCH ×2 (09:22→17:00)
[2018-09-25] MEDS: MORPHINE SULFATE 4 MG/ML SYRINGE IVP PRN ×3 (09:23→23:31)
--- NOTE | 2018-09-25 11:04 | P.GSCN ---
<Cielo Mcneal - Last Filed: 09/25/18 11:01> History of Present Illness Consult date: 09/25/18 Reason for Consult: Diverticulitis Requesting physician: Trudi Lynn History of present illness: CHIEF COMPLAINT: Diverticulitis HISTORY OF PRESENT ILLNESS: 62-year-old female who is admitted to the hospital secondary to diverticulitis. General surgery was consulted for further evaluation. Patient was originally evaluated on 09/13/2018 in the emergency room. She was diagnosed with sigmoid diverticulitis. She was prescribed Augmentin for 10 days. She states she was feeling well until she finished her antibiotics and the following day began having increased abdominal pain. She cu rrently reports lower mid-abdominal pain. Denies nausea or vomiting. Reports BM x 2 yesterday-normal in characteristics. She is tolerating clear liquid diet. She does not want her diet advanced at this time. Most recent colonoscopy performed January 2017 revealing scattered sigmoid diverticulosis without evidence of colitis or colorectal neoplasm performed by Dr. Pedraza. Patient states she does not follow with a GI physician outpatient. She is concerned about increasing frequency of diverticulitis flareups and states this is her third flareup in 2019. She is inquiring about surgical options. PAST MEDICAL HISTORY: See list. PAST SURGICAL HISTORY: See list. SOCIAL HISTORY: No illicit drug use. REVIEW OF SYSTEMS: CONSTITUTIONAL: Denies fever or chills. HEENT: Denies blurred vision, vision changes, or eye pain. Denies hemoptysis CARDIOVASCULAR: Denies chest pain or pressure. RESPIRATORY: No shortness of breath. GASTROINTESTINAL: Refer to HPI for pertinent findings HEMATOLOGIC: Denies bleeding disorders. GENITOURINARY: Denies any blood in urine. SKIN: Denies pruitis. Denies rash. PHYSICAL EXAM: VITAL SIGNS: Reviewed. GENERAL: Well-developed in no acute distress. HEENT: No sclera icterus. Extraocular movements grossly intact. Moist buccal mucosa. Head is atraumatic, normocephalic. ABDOMEN: Soft. Nondistended. Tenderness upon palpation of lower abdomen/suprapubic region. Positive bowel sounds. NEUROLOGIC: Alert and oriented. Cranial nerves II through XII grossly intact. LABORATORY DATA: WBC 13.7. Hemoglobin 12.0 IMAGING: CT abdomen and pelvis acute sigmoid diverticulitis. No abscess perforation or bowel obstruction.: ASSESSMENT: 1. Acute diverticulitis, failed outpatient treatment PLAN: 1. Continue clear liquid diet 2. Continue antibiotics. Monitor WBC 3. Patient would like to discuss further options for diverticulitis including surgical resection. Dr Felix will evaluate patient this afternoon. Nurse practitioner note has been reviewed by physician. Signing provider agrees with the documented findings, assessment, and plan of care. Past Medical History Past Medical History: Chest Pain / Angina, GERD/Reflux Additional Past Medical History / Comment(s): Gastritis, diverticulosis, diverticulitis. History of Any Multi-Drug Resistant Organisms: None Reported Past Surgical History: Orthopedic Surgery Additional Past Surgical History / Comment(s): EGD, COLONOSCOPY, OVARIAN CYST (1991). right knee torn meniscus, Past Anesthesia/Blood Transfusion Reactions: No Reported Reaction Past Psychological History: Anxiety Additional Psychological History / Comment(s): Pt resides with her spouse. 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 She is independent. Smoking Status: Never smoker Past Alcohol Use History: Daily Additional Past Alcohol Use History / Comment(s): 2 DRINKS DAILY (BEER OR WINE) Past Drug Use History: None Reported - Past Family History Mother Family Medical History: Deep Vein Thrombosis (DVT) Additional Family Medical History / Comment(s): Mother is . Father Family Medical History: Cancer, Congestive Heart Failure (CHF) Additional Family Medical History / Comment(s): LYMPHOMA. Father is Daughter(s) Family Medical History: Cancer Additional Family Medical History / Comment(s): THYROID CANCER Medications and Allergies Home Medications Medication Instructions Recorded Confirmed Type Omeprazole [PriLOSEC] 20 mg PO AC-BRKFST 02/08/17 09/25/18 History Amoxicillin/Potassium Clav 1 tab PO BID 10 Days #20 tab 09/13/18 09/25/18 Rx [Augmentin 875-125 Tablet] Cholecalciferol [Vitamin D3 (25 5,000 unit PO DAILY 09/13/18 09/25/18 History Mcg = 1000 Iu)] Escitalopram [Lexapro] 20 mg PO DAILY 09/13/18 09/25/18 History Allergies Allergy/AdvReac Type Severity Reaction Status Date / Time No Known Allergies Allergy Verified 09/25/18 07:56 Surgical - Exam Vital Signs Temp Pulse Resp BP Pulse Ox 98.2 F 85 18 132/84 95 09/25/18 02:46 09/25/18 02:46 09/25/18 02:46 09/25/18 02:46 09/25/18 02:46 Results - Labs 09/25/18 03:15 09/25/18 03:15 Abnormal Lab Results - Last 24 Hours (Table) 09/25/18 09/25/18 09/25/18 Range/Units 03:15 03:15 03:15 WBC 13.7 H (3.8-10.6) k/uL Neutrophils # 9.7 H (1.3-7.7) k/uL Glucose 115 H (74-99) mg/dL Total Protein 8.5 H (6.3-8.2) g/dL Urine Blood Trace H (Negative) Urine Mucus Rare H (None) /hpf Microbiology - Last 24 Hours (Table) 09/25/18 03:15 Urine Culture - Preliminary Urine,Clean Catch Diabetes panel 09/25/18 Range/Units 03:15 Sodium 139 (137-145) mmol/L Potassium 4.4 (3.5-5.1) mmol/L Chloride 102 (98-107) mmol/L Carbon Dioxide 28 (22-30) mmol/L BUN 11 (7-17) mg/dL Creatinine 0.58 (0.52-1.04) mg/dL Glucose 115 H (74-99) mg/dL Calcium 9.7 (8.4-10.2) mg/dL AST 14 (14-36) U/L ALT 13 (9-52) U/L Alkaline Phosphatase 99 (38-126) U/L Total Protein 8.5 H (6.3-8.2) g/dL Albumin 4.1 (3.5-5.0) g/dL Calcium panel 09/25/18 Range/Units 03:15 Calcium 9.7 (8.4-10.2) mg/dL Albumin 4.1 (3.5-5.0) g/dL Pituitary panel 09/25/18 Range/Units 03:15 Sodium 139 (137-145) mmol/L Potassium 4.4 (3.5-5.1) mmol/L Chloride 102 (98-107) mmol/L Carbon Dioxide 28 (22-30) mmol/L BUN 11 (7-17) mg/dL Creatinine 0.58 (0.52-1.04) mg/dL Glucose 115 H (74-99) mg/dL Calcium 9.7 (8.4-10.2) mg/dL Adrenal panel 09/25/18 Range/Units 03:15 Sodium 139 (137-145) mmol/L Potassium 4.4 (3.5-5.1) mmol/L Chloride 102 (98-107) mmol/L Carbon Dioxide 28 (22-30) mmol/L BUN 11 (7-17) mg/dL Creatinine 0.58 (0.52-1.04) mg/dL Glucose 115 H (74-99) mg/dL Calcium 9.7 (8.4-10.2) mg/dL Total Bilirubin 0.5 (0.2-1.3) mg/dL AST 14 (14-36) U/L ALT 13 (9-52) U/L Alkaline Phosphatase 99 (38-126) U/L Total Protein 8.5 H (6.3-8.2) g/dL Albumin 4.1 (3.5-5.0) g/dL <Alen Felix - Last Filed: 09/25/18 13:31> History of Present Illness History of present illness: As above. Patient with recurrent diverticulitis. Patient has had episodes of diverticulitis in 2008, 2014, 2017, and 2-3 times already this year. Recent colonoscopy normal with exception of diverticulosis. Still having mild lower abdominal pain. Continue IV antibiotics. Patient would likely benefit from elective sigmoid resection. This will further be discussed as the patient improves. We'll follow with you. Continue clear liquids for now. Surgical - Exam Vital Signs Temp Pulse Resp BP Pulse Ox 98.2 F 85 18 132/84 95 09/25/18 02:46 09/25/18 02:46 09/25/18 02:46 09/25/18 02:46 09/25/18 02:46 Results - Labs 09/25/18 03:15 09/25/18 03:15 Abnormal Lab Results - Last 24 Hours (Table) 09/25/18 09/25/18 09/25/18 Range/Units 03:15 03:15 03:15 WBC 13.7 H (3.8-10.6) k/uL Neutrophils # 9.7 H (1.3-7.7) k/uL Glucose 115 H (74-99) mg/dL Total Protein 8.5 H (6.3-8.2) g/dL Urine Blood Trace H (Negative) Urine Mucus Rare H (None) /hpf Microbiology - Last 24 Hours (Table) 09/25/18 03:15 Urine Culture - Preliminary Urine,Clean Catch Diabetes panel 09/25/18 Range/Units 03:15 Sodium 139 (137-145) mmol/L Potassium 4.4 (3.5-5.1) mmol/L Chloride 102 (98-107) mmol/L Carbon Dioxide 28 (22-30) mmol/L BUN 11 (7-17) mg/dL Creatinine 0.58 (0.52-1.04) mg/dL Glucose 115 H (74-99) mg/dL Calcium 9.7 (8.4-10.2) mg/dL AST 14 (14-36) U/L ALT 13 (9-52) U/L Alkaline Phosphatase 99 (38-126) U/L Total Protein 8.5 H (6.3-8.2) g/dL Albumin 4.1 (3.5-5.0) g/dL Calcium panel 09/25/18 Range/Units 03:15 Calcium 9.7 (8.4-10.2) mg/dL Albumin 4.1 (3.5-5.0) g/dL Pituitary panel 09/25/18 Range/Units 03:15 Sodium 139 (137-145) mmol/L Potassium 4.4 (3.5-5.1) mmol/L Chloride 102 (98-107) mmol/L Carbon Dioxide 28 (22-30) mmol/L BUN 11 (7-17) mg/dL Creatinine 0.58 (0.52-1.04) mg/dL Glucose 115 H (74-99) mg/dL Calcium 9.7 (8.4-10.2) mg/dL Adrenal panel 09/25/18 Range/Units 03:15 Sodium 139 (137-145) mmol/L Potassium 4.4 (3.5-5.1) mmol/L Chloride 102 (98-107) mmol/L Carbon Dioxide 28 (22-30) mmol/L BUN 11 (7-17) mg/dL Creatinine 0.58 (0.52-1.04) mg/dL Glucose 115 H (74-99) mg/dL Calcium 9.7 (8.4-10.2) mg/dL Total Bilirubin 0.5 (0.2-1.3) mg/dL AST 14 (14-36) U/L ALT 13 (9-52) U/L Alkaline Phosphatase 99 (38-126) U/L Total Protein 8.5 H (6.3-8.2) g/dL Albumin 4.1 (3.5-5.0) g/dL
[2018-09-25] MEDS: metroNIDAZOLE-NS PMX 500 MG in SALINE 1 100ML.BAG IVPB SCH ×2 (12:06→21:44)
--- NOTE | 2018-09-25 18:33 | P.PN ---
Subjective Progress Note Date: 09/25/18 Principal diagnosis: abdominal pain Patient is a 62-year-old female with a past medical history of recurrent diverticulitis, GERD, and angina who presented to the ER with complaints of left lower abdominal pain. In the ER she underwent an extensive evaluation. On initial laboratory analysis she underwent blood cell count of 13.7, urinalysis was benign, CT of the abdomen and pelvis demonstrated acute sigmoid diverticulitis. She was started on IV fluids, clear liquid diet, Rocephin, and Flagyl. She was admitted for further monitoring and care. It came to light that patient was treated for diverticulitis with 10 day course of Augmentin which she completed approximately 4 days ago, her symptoms became recurrent 2 days ago. Surgery was consulted. Patient seen and examined at bedside. She tried tea this morning and became nauseous. She is still having some left-sided lower abdominal pain. She denies any diarrhea. She states that she has had diverticulitis 2-3 times this year as well as a flare in 2017. She is very interested in surgical resection. Explained her that we'll proceed with IV antibiotics, clear liquids, and pain control. I have consulted surgery to see her for their opinion. Objective - Vital Signs Vital signs: Vital Signs Temp 98.7 F 09/25/18 06:54 Pulse 76 09/25/18 06:54 Resp 16 09/25/18 06:54 BP 105/70 09/25/18 06:54 Pulse Ox 94 L 09/25/18 06:54 Intake & Output 09/24/18 09/25/18 09/25/18 18:59 06:59 18:59 Weight 75.2 kg - Exam General: Ill-appearing, mild distress secondary to pain, appears at stated age Derm: warm, dry Head: atraumatic, normocephalic, symmetric Eyes: EOMI, no lid lag, anicteric sclera Mouth: no lip lesion, mucus membranes dry Cardiovascular: S1S2 reg, no murmur, positive posterior tibial pulse bilateral, Lungs: Decreased breath sounds bilateral bases, no rhonchi, no rales , no accessory muscle use Abdominal: soft, tender to palpation right and left lower quadrants, no guarding, no appreciable organomegaly Ext: no gross muscle atrophy, no edema, no contractures Neuro: CN II-XI grossly intact, no focal neuro deficits Psych: Alert, oriented, appropriate affect - Labs CBC & Chem 7: 09/25/18 03:15 09/25/18 03:15 Labs: Abnormal Lab Results - Last 24 Hours (Table) 09/25/18 09/25/18 09/25/18 Range/Units 03:15 03:15 03:15 WBC 13.7 H (3.8-10.6) k/uL Neutrophils # 9.7 H (1.3-7.7) k/uL Glucose 115 H (74-99) mg/dL Total Protein 8.5 H (6.3-8.2) g/dL Urine Blood Trace H (Negative) Urine Mucus Rare H (None) /hpf Assessment and Plan Assessment: Acute sigmoid diverticulitis, failed outpatient treatment -Continue with clear liquid diet -Pain control -Antiemetics -Rocephin and Flagyl -Surgical consultation GERD -Continue PPI DVT prophylaxis: Heparin Discussed with: Patient, Cielo Mcneal NP Anticipated discharge: 2-[address]: home A total of 35 minutes was spent on the care of this complex patient more than 50% of the time was spent in counseling and care coordination.
[2018-09-26] MEDS: DEXTROSE 5%-0.45% NACL 1,000 ML IV SCH ×3 (01:31→17:03)
[2018-09-26] MEDS: metroNIDAZOLE-NS PMX 500 MG in SALINE 1 100ML.BAG IVPB SCH ×3 (05:07→21:07)
[2018-09-26] MEDS: HEPARIN SODIUM,PORCINE 5,000 UNIT/ML 1 ML VIAL SQ SCH ×3 (07:59→23:31)
[2018-09-26] MEDS: PANTOPRAZOLE 40 MG TABLET PO SCH (07:59)
[2018-09-26] MEDS: ESCITALOPRAM 20 MG TAB PO SCH (07:59)
[2018-09-26 11:23] LABS: HGB 10.5 gm/dL (11.4-16.0); MCH 28.4 pg (25.0-35.0); MCHC 31.7 g/dL (31.0-37.0); MCV 89.6 fL (80.0-100.0); Mean Platelet Volume 7.3; Platelet Count 348 k/uL (150-450); RBC 3.68 m/uL (3.80-5.40); RDW 13.3 % (11.5-15.5); WBC 9.3 k/uL (3.8-10.6)
--- NOTE | 2018-09-26 11:25 | P.PN ---
<Cielo Mcneal Malick - Last Filed: 09/26/18 11:22> Subjective Progress Note Date: 09/26/18 CHIEF COMPLAINT: Diverticulitis HISTORY OF PRESENT ILLNESS: Patient examined at the bedside. She reports continued abdominal pain and tenderness this morning, although improving from yesterday. She is passing flatus. No BM. Patient reports mild nausea. No emesis. She is tolerating clear liquids. WBC 9.3. Hemoglobin 10.5. PHYSICAL EXAM: VITAL SIGNS: Reviewed. GENERAL: Well-developed in no acute distress. HEENT: No sclera icterus. Extraocular movements grossly intact. Moist buccal mucosa. Head is atraumatic, normocephalic. ABDOMEN: Soft. Nondistended. Tenderness upon palpation of lower abdomen. Positive bowel sounds. NEUROLOGIC: Alert and oriented. Cranial nerves II through XII grossly intact. ASSESSMENT: 1. Acute diverticulitis, failed outpatient treatment PLAN: 1. Continue clear liquid diet. Will advance when pain improves 2. Continue antibiotics. Monitor WBC Nurse practitioner note has been reviewed by physician. Signing provider agrees with the documented findings, assessment, and plan of care. Objective - Vital Signs Vital signs: Vital Signs Temp 98.6 F 09/26/18 05:05 Pulse 78 09/26/18 05:05 Resp 20 09/26/18 05:05 BP 106/68 09/26/18 05:05 Pulse Ox 93 L 09/26/18 05:05 Intake & Output 09/25/18 09/26/18 09/26/18 18:59 06:59 18:59 Intake Total 840 300 Balance 840 300 Weight 75.2 kg Intake: Oral 840 300 Other: Voiding Method Toilet Toilet Toilet # Voids 4 2 - Labs CBC & Chem 7: 09/25/18 03:15 09/25/18 03:15 Labs: Microbiology - Last 24 Hours (Table) 09/25/18 03:15 Blood Culture - Preliminary Blood No Growth after 24 hours 09/25/18 03:15 Urine Culture - Preliminary Urine,Clean Catch <Alen Felix - Last Filed: 09/26/18 12:47> Subjective As above. Patient's pain is improved today. White blood cell count normalized. Continue IV antibiotics. Advance to full liquid diet. Objective - Vital Signs Vital signs: Vital Signs Temp 98.6 F 09/26/18 05:05 Pulse 78 09/26/18 05:05 Resp 20 09/26/18 05:05 BP 106/68 09/26/18 05:05 Pulse Ox 93 L 09/26/18 05:05 Intake & Output 09/25/18 09/26/18 09/26/18 18:59 06:59 18:59 Intake Total 840 300 Balance 840 300 Weight 75.2 kg Intake: Oral 840 300 Other: Voiding Method Toilet Toilet Toilet # Voids 4 2 - Labs CBC & Chem 7: 09/26/18 11:01 09/26/18 11:01 Labs: Abnormal Lab Results - Last 24 Hours (Table) 09/26/18 09/26/18 Range/Units 11:01 11:01 RBC 3.68 L (3.80-5.40) m/uL Hgb 10.5 L (11.4-16.0) gm/dL Hct 33.0 L (34.0-46.0) % BUN 4 L (7-17) mg/dL Microbiology - Last 24 Hours (Table) 09/25/18 03:15 Urine Culture - Final Urine,Clean Catch 09/25/18 03:15 Blood Culture - Preliminary Blood No Growth after 24 hours
[2018-09-26 11:53] LABS: African American GFR (CKD) >90 (>60 ml/min/1.73 sqM); Anion Gap 7 mmol/L; Blood Urea Nitrogen 4 mg/dL (7-17); Calcium 9.3 mg/dL (8.4-10.2); Carbon Dioxide 28 mmol/L (22-30); Chloride 105 mmol/L (98-107); Glucose 84 mg/dL (74-99); Magnesium 1.9 mg/dL (1.6-2.3); Potassium 4.5 mmol/L (3.5-5.1); Sodium 140 mmol/L (137-145)
--- NOTE | 2018-09-26 16:53 | P.PN ---
Subjective Progress Note Date: 09/26/18 (delayed charting patient seen at 0910) Principal diagnosis: abdominal pain Patient is a 62-year-old female with a past medical history of recurrent diverticulitis, GERD, and angina who presented to the ER with complaints of left lower abdominal pain. In the ER she underwent an extensive evaluation. On initial laboratory analysis she underwent blood cell count of 13 .7, urinalysis was benign, CT of the abdomen and pelvis demonstrated acute sigmoid diverticulitis. She was started on IV fluids, clear liquid diet, Rocephin, and Flagyl. She was admitted for further monitoring and care. It came to light that patient was treated for diverticulitis with 10 day course of Augmentin which she completed approximately 4 days ago, her symptoms became recurrent 2 days ago. Surgery was consulted and recommended continued conservative management at this time, with possible elective colon resection at a later date. Patient seen and examined at bedside. Feeling less tired today, still having intermittent left lower quadrant pain, still feeling nauseous with eating. No bowel movement yet. Passing flatus. Objective - Vital Signs Vital signs: Vital Signs Temp 98.5 F 09/26/18 14:03 Pulse 84 09/26/18 14:03 Resp 16 09/26/18 14:03 BP 126/71 09/26/18 14:03 Pulse Ox 96 09/26/18 14:03 Intake & Output 09/25/18 09/26/18 09/26/18 18:59 06:59 18:59 Intake Total 840 300 540 Balance 840 300 540 Weight 75.2 kg Intake: Oral 840 300 540 Other: Voiding Method Toilet Toilet Toilet # Voids 4 2 4 - Exam General: Ill-appearing, no distress secondary to pain, appears at stated age Derm: warm, dry Head: atraumatic, normocephalic, symmetric Eyes: EOMI, no lid lag, anicteric sclera Mouth: no lip lesion, mucus membranes dry Cardiovascular: S1S2 reg, no murmur, positive posterior tibial pulse bilateral, Lungs: CTA bilateral, no rhonchi, no rales , no accessory muscle use Abdominal: soft, tender left lower quadrants, no guarding, no appreciable organomegaly Ext: no gross muscle atrophy, no edema, no contractures Neuro: CN II-XI grossly intact, no focal neuro deficits Psych: Alert, oriented, appropriate affect - Labs CBC & Chem 7: 09/26/18 11:01 09/26/18 11:01 Labs: Abnormal Lab Results - Last 24 Hours (Table) 09/26/18 09/26/18 Range/Units 11: 11:01 RBC 3.68 L (3.80-5.40) m/uL Hgb 10.5 L (11.4-16.0) gm/dL Hct 33.0 L (34.0-46.0) % BUN 4 L (7-17) mg/dL Microbiology - Last 24 Hours (Table) 09/25/18 03:15 Urine Culture - Final Urine,Clean Catch 09/25/18 03:15 Blood Culture - Preliminary Blood No Growth after 24 hours Assessment and Plan Assessment: Acute sigmoid diverticulitis, failed outpatient treatment -Advanced to full liquid deit per surgery for dinner -Pain control -Antiemetics -Rocephin and Flagyl -Surgery recs appreciated: Conservative management at this point in time, possible elective resection at a later point in time. GERD -Continue PPI DVT prophylaxis: Heparin Discussed with: Patient, Anticipated discharge: 2-[address]: home A total of 25 minutes was spent on the care of this complex patient more than 50% of the time was spent in counseling and care coordination.
[2018-09-27] MEDS: DEXTROSE 5%-0.45% NACL 1,000 ML IV SCH (05:49)
[2018-09-27] MEDS: metroNIDAZOLE-NS PMX 500 MG in SALINE 1 100ML.BAG IVPB SCH (05:49)
[2018-09-27 06:33] VITALS: BP 134/60; PULSE 73; RESP 16; TEMP 98.3
[2018-09-27] MEDS: HEPARIN SODIUM,PORCINE 5,000 UNIT/ML 1 ML VIAL SQ SCH (07:29)
[2018-09-27] MEDS: PANTOPRAZOLE 40 MG TABLET PO SCH (07:30)
[2018-09-27] MEDS: ESCITALOPRAM 20 MG TAB PO SCH (07:30)
--- NOTE | 2018-09-27 10:03 | P.DS ---
Providers Date of admission: 09/25/18 05:36 Expected date of discharge: 09/27/18 Attending physician: Katie Villalpando MD Consults: 09/25/18 07:58 Consult Physician Routine Consulting Provider: Alen Felix Consult Reason/Comments: diverticulitis failed outpatient tretment Do you want consulting provider notified?: Yes Primary care physician: Nj Pineda Hospital Course: Discharge diagnosis Sepsis Acute sigmoid diverticulitis GERD Patient is a 62-year-old female with a past medical history of recurrent diverticulitis, GERD, and angina who presented to the ER with complaints of left lower abdominal pain. In the ER she underwent an extensive evaluation. On initial laboratory analysis she underwent blood cell count of 13.7, urinalysis was benign, CT of the abdomen and pelvis demonstrated acute sigmoid diverticulitis. She was started on IV fluids, clear liquid diet, Rocephin, and Flagyl. She was admitted for further monitoring and care with sepsis due to diverticulitis she was hemodynamically stable and afebrile and her leukocytosis resolved with antibiotics. It came to light that patient was treated for diverticulitis with 10 day course of Augmentin which she completed approximately 4 days ago, her symptoms became recurrent 2 days ago. Surgery was consulted and recommended continued conservative management at this time, with possible elective colon resection at a later date. With treatment the patient continued to improve her abdominal pain resolved, and she was able to eat without any significant nausea. She was subsequently discharged home in stable condition with a new prescription for Flagyl and ciprofloxacin and instructed to follow-up with her PCP Dr. Pineda in 5-7 days. This discharge process took approximately 35 minutes Focused exam GI: Soft nontender nondistended normoactive bowel sounds all 4 quadrants Patient Condition at Discharge: Stable Plan - Discharge Summary Discharge Rx Participant: No New Discharge Prescriptions: New Ciprofloxacin HCl [Cipro] 500 mg PO Q12HR #14 tablet metroNIDAZOLE [Flagyl] 500 mg PO TID #31 tab Continue Omeprazole [PriLOSEC] 20 mg PO AC-BRKFST Escitalopram [Lexapro] 20 mg PO DAILY Cholecalciferol [Vitamin D3 (25 Mcg = 1000 Iu)] 5,000 unit PO DAILY Discontinued Amoxicillin/Potassium Clav [Augmentin 875-125 Tablet] 1 tab PO BID 10 Days #20 tab Discharge Medication List Omeprazole [PriLOSEC] 20 mg PO AC-BRKFST 02/08/17 [History] Cholecalciferol [Vitamin D3 (25 Mcg = 1000 Iu)] 5,000 unit PO DAILY 09/13/18 [History] Escitalopram [Lexapro] 20 mg PO DAILY 09/13/18 [History] Ciprofloxacin HCl [Cipro] 500 mg PO Q12HR #14 tablet 09/27/18 [Rx] metroNIDAZOLE [Flagyl] 500 mg PO TID #31 tab 09/27/18 [Rx] Follow up Appointment(s)/Referral(s): Alen Felix MD [Medical Doctor] - 1 Week Nj Pineda MD [Primary Care Provider] - 1-2 days Patient Instructions/Handouts: Diverticulitis (DC), Diverticulitis Diet (DC) Discharge Disposition: HOME SELF-CARE
--- NOTE | 2018-09-27 11:11 | P.PN ---
Subjective Progress Note Date: 09/27/18 Principal diagnosis: Diverticulitis Patient doing well today. She says her pain is resolved completely. Tolerating full liquids. She would like to go home. She is afebrile. Objective - Vital Signs Vital signs: Vital Signs Temp 98.3 F 09/27/18 06:32 Pulse 73 09/27/18 06:32 Resp 16 09/27/18 06:32 BP 134/60 09/27/18 06:32 Pulse Ox 96 09/27/18 06:32 Intake & Output 09/26/18 09/27/18 09/27/18 18:59 06:59 18:59 Intake Total 1080 120 Balance 1080 120 Intake: Oral 1080 120 Other: Voiding Method Toilet Toilet Toilet # Voids 1 1 - Exam Abdomen: Soft, nondistended, nontender - Labs CBC & Chem 7: 09/26/18 11:01 09/26/18 11:01 Labs: Abnormal Lab Results - Last 24 Hours (Table) 09/26/18 09/26/18 Range/Units 11:01 11:01 RBC 3.68 L (3.80-5.40) m/uL Hgb 10.5 L (11.4-16.0) gm/dL Hct 33.0 L (34.0-46.0) % BUN 4 L (7-17) mg/dL Microbiology - Last 24 Hours (Table) 09/25/18 03:15 Blood Culture - Preliminary Blood No Growth after 48 hours 09/25/18 03:15 Urine Culture - Final Urine,Clean Catch Assessment and Plan (1) Diverticulitis Narrative/Plan: Patient doing well at this time. Stable for discharge. Continue Cipro Flagyl at home. Follow-up 2-3 weeks. Current Visit: Yes Status: Acute Code(s): K57.92 - DVTRCLI OF INTEST, PART UNSP, W/O PERF OR ABSCESS W/O BLEED SNOMED Code(s): 827121942
== END 2018-09-27 11:15 | disposition home or self-care (01) | DRG 872 ==
LOC: EC 02:45 → 4MS4W 05:36
PROVIDERS: ADMIT Internal Medicine; ATTEND Internal Medicine
DX: A41.9 Sepsis, unspecified organism (principal); K57.32 Diverticulitis of large intestine without perforation or abscess without bleeding; K21.9 Gastro-esophageal reflux disease without esophagitis; F41.9 Anxiety disorder, unspecified; Z79.899 Other long term (current) drug therapy; Z80.7 Family history of other malignant neoplasms of lymphoid, hematopoietic and related tissues; Z80.8 Family history of malignant neoplasm of other organs or systems; Z82.49 Family history of ischemic heart disease and other diseases of the circulatory system; Z79.2 Long term (current) use of antibiotics
CPT/HCPCS: 36415; 74177; 80048; 80053; 81001; 83605; 83735; 85025; 85027; 87040; 87086; 96361; 96365; 96375; 99285

== ENCOUNTER → 2018-12-08 | Outpatient (CLI) | payer MEDICARE ==
[~2018-12-08] MED LIST: ALVIMOPAN 12 MG CAPSULE PO ONE; HEPARIN SODIUM,PORCINE 5,000 UNIT/ML 1 ML VIAL SQ ONE; metroNIDAZOLE-NS PMX 500 MG in SALINE 1 100ML.BAG IVPB ONE
[2018-12-08 11:01] VITALS: BMI 27.4
== END | disposition home or self-care (01) ==
LOC: LABWHC1 12:39 → EDSTATUS 12-11 11:00
PROVIDERS: ATTEND Surgery
DX: Z01.812 Encounter for preprocedural laboratory examination (principal); K57.32 Diverticulitis of large intestine without perforation or abscess without bleeding
CPT/HCPCS: 36415; 86850; 86900; 86901

== ENCOUNTER → 2019-01-15 | Outpatient (CLI) | payer MEDICARE ==
--- NOTE | 2019-01-15 13:22 | BD ---
EXAMINATION TYPE: Axial Bone Density DATE OF EXAM: 01/15/2019 COMPARISON: 2005 CLINICAL HISTORY: Z 78.0 Height: 5 FT 4 1/4 IN Weight: 158 FRAX RISK QUESTIONS: Family History (Parent hip fracture): YES History of Fracture in Adulthood: YES Secondary Osteoporosis: RISK FACTORS HISTORY OF: Family History of Osteoporosis: YES Active: YES Postmenopausal woman: AGE 52 MEDICATIONS: Additional Medications: LEXYPRO Additional History: EXAM MEASUREMENTS: Bone mineral densitometry was performed using the Prism [employer] System. Bone mineral density as measured about the Lumbar spine is: ----- L1-L4(G/cm2): 1.267 T Score Values are as follows: ----- L2: 0.0 ----- L3: 1.3 ----- L4: 1.1 ----- L1-L4: 0.7 Bone mineral density has: DECREASED -5.2 % since study of: 2005 Bone mineral density about the R hip (g/cm2): 0.968 Bone mineral density about the L hip (g/cm2): 0.874 T Score values are as follows: -----R Neck: -0.5 -----L Neck: -1.2 -----R Total: -0.3 -----L Total: -0.2 Bone mineral density has: DECREASED -9.3 % since study of: 2005 IMPRESSION: Osteopenia (T Score between -2.5 and -1). There is slightly increased risk of fracture and the patient may be considered for treatment. Re-Screen 2-5 years. NOTE: T-SCORE=SD OF THE YOUNG ADULT MEAN.
== END | disposition home or self-care (01) ==
LOC: RADBDWWP 07:18
PROVIDERS: ATTEND Internal Medicine
DX: M85.88 Other specified disorders of bone density and structure, other site (principal); Z78.0 Asymptomatic menopausal state
CPT/HCPCS: 77080

== ENCOUNTER → 2019-01-17 | Outpatient (CLI) | payer MEDICARE ==
[2019-01-17 14:36] LABS: Basophils # (A) 0.1 k/uL (0-0.2); Basophils % (A) 1 %; Eosinophils # (A) 0.1 k/uL (0-0.7); Eosinophils % (A) 2 %; HCT 40.1 % (34.0-46.0); HGB 12.4 gm/dL (11.4-16.0); Lymphocytes # (A) 2.6 k/uL (1.0-4.8); Lymphocytes % (A) 31 %; MCH 28.3 pg (25.0-35.0); MCHC 30.9 g/dL (31.0-37.0); MCV 91.7 fL (80.0-100.0); Mean Platelet Volume 6.7; Monocytes # (A) 0.6 k/uL (0-1.0); Monocytes % (A) 7 %; Neutrophils # (A) 4.9 k/uL (1.3-7.7); Neutrophils % (A) 58 %; Platelet Count 366 k/uL (150-450); RBC 4.38 m/uL (3.80-5.40); RDW 12.8 % (11.5-15.5); WBC 8.3 k/uL (3.8-10.6)
[2019-01-17 18:43] LABS: Anion Gap 12.4 mmol/L (4.00-12.00); Carbon Dioxide 27.6 mmol/L (21.6-31.8); Potassium 4.1 mmol/L (3.5-5.5)
== END | disposition home or self-care (01) ==
LOC: LABWHC1 13:02
PROVIDERS: ATTEND Surgery
DX: Z01.812 Encounter for preprocedural laboratory examination (principal)
CPT/HCPCS: 36415; 80051; 85025

== ENCOUNTER 2019-01-22 10:10 | Inpatient (IN) | payer MEDICARE ==
[2019-01-16 14:06] VITALS: BMI 27.1
[~2019-01-22 10:10] MED LIST changes: +DEXAMETHASONE SOD PHOSPHATE 10 MG/ML 1 ML VIAL IV ONE; +LIDOCAINE 1% 20 ML VIAL (10MG/ML) FOR IV START INTRADERMA PRN; +MIDAZOLAM 2 MG/2 ML VIAL IV PRN; +fentaNYL (PF) 50 MCG/ML 2 ML AMP IV PRN
[2019-01-22] MEDS: LACTATED RINGERS 1,000 ML IV SCH (10:36)
[2019-01-22] MEDS ORDERED: ONDANSETRON 4 MG/2 ML VIAL IVP ONE (10:41)
[2019-01-22] MEDS ORDERED: fentaNYL (PF) 50 MCG/ML 2 ML AMP IVP ONE (11:02)
--- NOTE | 2019-01-22 11:54 | P.GSHP ---
History of Present Illness H&P Date: 01/22/19 Chief Complaint: Recurrent diverticulitis Patient well-known to our service. The patient has had repetitive episodes of sigmoid diverticulitis. She was actually scheduled for elective sigmoid colectomy 2 months ago but this was canceled as the stapler was on back order. Still having occasional pains left lower quadrant. Last colonoscopy less than 2 years ago. No nausea or vomiting. She estimates at least 5 episodes of diverticulitis. Past Medical History Past Medical History: Chest Pain / Angina, GERD/Reflux Additional Past Medical History / Comment(s): Gastritis, diverticulosis, diverticulitis. History of Any Multi-Drug Resistant Organisms: None Reported Past Surgical History: Orthopedic Surgery Additional Past Surgical History / Comment(s): EGD, COLONOSCOPY, OVARIAN CYST (1991). right knee torn meniscus, Past Anesthesia/Blood Transfusion Reactions: No Reported Reaction Past Psychological History: Anxiety Additional Psychological History / Comment(s): Pt resides with her spouse. 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 She is independent. - Past Family History Mother Family Medical History: Deep Vein Thrombosis (DVT) Additional Family Medical History / Comment(s): . Father Family Medical History: Cancer Additional Family Medical History / Comment(s): LYMPHOMA. Daughter(s) Family Medical History: Cancer Additional Family Medical History / Comment(s): THYROID CANCER Medications and Allergies Home Medications Medication Instructions Recorded Confirmed Type Omeprazole [PriLOSEC] 20 mg PO AC-BRKFST 02/08/17 01/16/19 History Escitalopram [Lexapro] 20 mg PO DAILY 09/13/18 01/16/19 History Allergies Allergy/AdvReac Type Severity Reaction Status Date / Time No Known Allergies Allergy Verified 01/16/19 13:59 Surgical - Exam Vital Signs Temp Pulse Resp BP Pulse Ox 97.6 F 80 16 125/65 97 01/22/19 10:31 01/22/19 10:31 01/22/19 10:31 01/22/19 10:31 01/22/19 10:31 Physical exam: General: Well-developed, well-nourished HEENT: Normocephalic, sclerae nonicteric Abdomen: Nontender, nondistended Extremities: No edema Neuro: Alert and oriented Assessment and Plan (1) Diverticulitis Narrative/Plan: Will proceed with sigmoid colectomy at this time. Risks of bleeding, infection, leak, abscess, bladder bowel and ureteral injury, recurrent diverticulitis, hernia, anesthesia related complications reviewed. She understands and wishes to proceed. Current Visit: No Status: Acute Code(s): K57.92 - DVTRCLI OF INTEST, PART UNSP, W/O PERF OR ABSCESS W/O BLEED SNOMED Code(s): 562368233
[2019-01-22] MEDS ORDERED: SUCCINYLCHOLINE CHLORIDE 100 MG/5 ML SYR IV ONE (11:59)
[2019-01-22] MEDS ORDERED: LIDOCAINE 1% INJ 10MG/ML (20 ML MDV) ONE (11:59)
[2019-01-22] MEDS ORDERED: GLUCAGON 1 MG/ML VIAL ONE (11:59)
[2019-01-22] MEDS ORDERED: NEOSTIGMINE 1 MG/ML 10 ML VIAL ONE (11:59)
[2019-01-22] MEDS ORDERED: ROCURONIUM BROMIDE 10 MG/ML 10 ML VIAL IV ONE (11:59)
[2019-01-22] MEDS ORDERED: fentaNYL (PF) 50 MCG/ML 2 ML AMP ONE (11:59)
[2019-01-22] MEDS ORDERED: PROPOFOL 10 MG/ML 20 ML VIAL IV ONE (11:59)
[2019-01-22] MEDS ORDERED: MIDAZOLAM 2 MG/2 ML VIAL ONE (11:59)
[2019-01-22] MEDS ORDERED: GLYCOPYRROLATE 0.2 MG/ML 2 ML VIAL ONE (11:59)
[2019-01-22] MEDS ORDERED: NALBUPHINE 10 MG/ML (1 ML AMP) IV PRN (12:00)
[2019-01-22] MEDS ORDERED: ONDANSETRON 4 MG/2 ML VIAL IVP PRN (12:00)
[2019-01-22] MEDS ORDERED: NALOXONE 0.4 MG/ML 1 ML VIAL IV PRN (12:00)
[2019-01-22] MEDS ORDERED: LACTATED RINGERS 1,000 ML IV ONE (14:31)
[2019-01-22] MEDS: ROPIVACAINE 400 MG, HYDROMORPHONE (PF) 5 MG in SODIUM CHLORIDE 0.9% 170 ML EPIDURAL PRN ×2 (14:43→16:13)
[2019-01-22] MEDS ORDERED: HYDROmorphone 1 MG/ML 1 ML SYRINGE IVP PRN (14:50)
[2019-01-22] MEDS ORDERED: BENZOCAINE/MENTHOL LOZENG 1 EACH LOZENGE MUCOUS MEM PRN (14:50)
[2019-01-22] MEDS ORDERED: METOCLOPRAMIDE 5 MG/ML 2 ML VIAL IVP PRN (14:50)
--- NOTE | 2019-01-22 14:57 | P.OP ---
Date of Procedure: 01/22/19 Procedure(s) Performed: PREOPERATIVE DIAGNOSIS: Diverticulitis POSTOPERATIVE DIAGNOSIS: Same PROCEDURE: Low anterior sigmoid resection SURGEON: Isidro EBL: 75 mL ANESTHESIA: General COMPLICATIONS: None OPERATIVE PROCEDURE: Patient place in the operative table in the supine position. The patient was placed under general anesthesia. The patient was then placed in lithotomy. The abdomen was prepped and draped in usual sterile fashion. A vertical incision was made extending from the infraumbilical locati on to the suprapubic location. The fascia was divided as well. The Bookwalter retractor was utilized. The sigmoid colon was fully mobilized by incising the white line of Toldt. The left and right ureters were both identified and preserved. A site was chosen for division of the sigmoid colon proximally. The degree of chronic inflammatory changes was present in the mid to distal sigmoid colon. A small colotomy was created and the 29 EEA anvil was advanced into the lumen of the sigmoid colon and milked proximally. The bowel was then divided using a linear 75 stapler and the anvil was brought out adjacent to the staple line. A 3-0 silk pursestring suture was placed around the anvil at that location. The mesentery was divided using the LigaSure device. Dissection took place down to the proximal rectum where the tenia was noted to splay out. The proximal rectum was divided using the contour stapler. The specimen was passed off the field at that point. No signs of bleeding at either staple line was noted after irrigation. The stapler was then inserted into the anus and brought up to the staple line. The obturator was brought out just anterior to the staple line. The 2 portions of the stapler were connected to one another and subsequently tightened and fired. The bowel was clamped proximal to the anastomosis. The rigid sigmoidoscope was utilized to fill the anastomotic site nicely with air. There was saline in the pelvis at this time. No evidence of leak was seen. The abdomen was irrigated with saline. The liver, stomach, visualized colon, and small bowel appeared normal. The midline fascia was then reapproximated using 2 separate double-stranded #1 PDS sutures. The subcutaneous tissues were closed using 3-0 Vicryl sutures. The skin was then closed using chas. Sterile dressings were then applied. DISPOSITION: Stable to recovery room
[2019-01-22 17:46] LABS: Basophils % (A) 0 %; Eosinophils % (A) 0 %; HCT 37.7 % (34.0-46.0); HGB 11.8 gm/dL (11.4-16.0); Lymphocytes # (A) 0.9 k/uL (1.0-4.8); Lymphocytes % (A) 6 %; MCH 29.6 pg (25.0-35.0); MCHC 31.4 g/dL (31.0-37.0); MCV 94.2 fL (80.0-100.0); Mean Platelet Volume 7.1; Monocytes # (A) 0.3 k/uL (0-1.0); Monocytes % (A) 2 %; Neutrophils # (A) 13.7 k/uL (1.3-7.7); Neutrophils % (A) 92 %; Platelet Count 297 k/uL (150-450); RBC 4.01 m/uL (3.80-5.40); RDW 12.7 % (11.5-15.5)
[2019-01-22 17:56] LABS: African American GFR (CKD) >90 (>60 ml/min/1.73 sqM); Anion Gap 8 mmol/L; Blood Urea Nitrogen 11 mg/dL (7-17); Calcium 9.2 mg/dL (8.4-10.2); Carbon Dioxide 26 mmol/L (22-30); Chloride 105 mmol/L (98-107); Glucose 107 mg/dL (74-99); Sodium 139 mmol/L (137-145)
--- NOTE | 2019-01-22 18:07 | P.CONS ---
History of Present Illness - Reason for Consult Consult date: 01/22/19 - History of Present Illness Patient is a 58-year-old female with a past medical history of diverticulosis with multiple bouts of diverticulitis, GERD, and generalized anxiety disorder who was admitted for scheduled sigmoid resection due to her recurrent diverticulitis. The patient was seen on POD # 0 at the bedside. She was in good spirits and noted excellent control of her pain. The patient reported that her initial diagnosis of diverticulosis was more than 10 years ago, after which she had several bouts of diverticulitis and chronic symptoms with bloating and chronic abdominal pain. She reports she also had 2 episodes of diverticulitis earlier in the year after which she decided to undergo the resection. At the time of interview, she denied fever, chills, nausea, vomiting. She denied chest pain, shortness of breath. Review of Systems Pertinent positives and negatives as discussed in HPI, a complete review of systems was performed and all other systems are negative. Past Medical History Past Medical History: Chest Pain / Angina, GERD/Reflux Additional Past Medical History / Comment(s): Gastritis, diverticulosis, diverticulitis. History of Any Multi-Drug Resistant Organisms: None Reported Past Surgical History: Orthopedic Surgery Additional Past Surgical History / Comment(s): EGD, COLONOSCOPY, OVARIAN CYST (1991). right knee torn meniscus, Past Anesthesia/Blood Transfusion Reactions: No Reported Reaction Past Psychological History: Anxiety Additional Psychological History / Comment(s): Pt resides with her spouse. 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 - Past Family History Mother Family Medical History: Deep Vein Thrombosis (DVT) Additional Family Medical History / Comment(s): . Father Family Medical History: Cancer Additional Family Medical History / Comment(s): LYMPHOMA. Daughter(s) Family Medical History: Cancer Additional Family Medical History / Comment(s): THYROID CANCER Medications and Allergies Home Medications Medication Instructions Recorded Confirmed Type Omeprazole [PriLOSEC] 20 mg PO AC-BRKFST 02/08/17 01/16/19 History Escitalopram [Lexapro] 20 mg PO DAILY 09/13/18 01/16/19 History Allergies Allergy/AdvReac Type Severity Reaction Status Date / Time No Known Allergies Allergy Verified 01/16/19 13:59 Physical Exam Vitals: Vital Signs Temp Pulse Resp BP Pulse Ox 01/22/19 16:15 82 16 100/67 96 01/22/19 16:00 72 16 97/55 96 01/22/19 15:45 72 16 100/62 95 01/22/19 15:28 74 16 101/58 96 01/22/19 15:13 69 16 105/58 95 01/22/19 14:58 97 16 97/52 97 01/22/19 14:43 99.6 F 96 16 106/58 94 L 01/22/19 11:29 90 16 120/75 96 01/22/19 10:31 97.6 F 80 16 125/65 97 Intake and Output 01/22/19 01/22/19 01/22/19 06:59 14:59 22:59 Intake Total 1150 107 Output Total 350 75 Balance 800 32 Intake: IV 1150 107 Output: Urine 250 75 Estimated Blood Loss 100 Other: Weight 71.214 kg General: non toxic, no distress, appears at stated age, normal weight Derm: no unusual rashes/lesions no unusual ecchymoses, warm, dry Head: atraumatic, normocephalic, symmetric Eyes: EOMI, no lid lag, anicteric sclera, pupils equal round reactive to light ENT: Nose and ears atraumatic, no thrush, no pharyngeal erythema Neck: No thyromegaly, no cervical lymphadenopathy, trachea midline, supple Mouth: no lip lesion, mucus membranes moist Cardiovascular: S1S2 reg, no murmur, positive posterior tibial pulse bilateral, no edema, capillary refill less than 2 seconds Lungs: CTA bilateral, no rhonchi, no rales , no accessory muscle use Abdominal: Postsurgical, with midline incision with overlying dressing, clean and dry, no guarding, soft Ext: no gross muscle atrophy, muscle strength 5 out of 5 in all 4 extremities grossly, no contractures, Neuro: CN II-XI grossly intact, light touch intact all 4 extremities, finger to nose within normal limits, Psych: Alert, oriented, appropriate affect Results CBC & Chem 7: 01/22/19 17:16 01/22/19 17:16 Labs: Abnormal Lab Results - Last 24 Hours (Table) 01/22/19 01/22/19 Range/Units 17:16 17:16 WBC 15.0 H (3.8-10.6) k/uL Neutrophils # 13.7 H (1.3-7.7) k/uL Lymphocytes # 0.9 L (1.0-4.8) k/uL Glucose 107 H (74-99) mg/dL Assessment and Plan Plan: Diverticulosis with multiple bouts of diverticulitis, status post sigmoid resection POD #0 -Will defer management including pain control to surgical team Leukocytosis -Likely due to acute stress -Monitor for now GERD -C/w home med: Prilosec Generalized anxiety disorder -C/w Lexapro home med DVT prop -As per surgical service, currently on Heparin
[2019-01-22] MEDS: FAMOTIDINE 20 MG/2 ML VIAL IV SCH (20:09)
[2019-01-22] MEDS: HEPARIN SODIUM,PORCINE 5,000 UNIT/ML 1 ML VIAL SQ SCH (23:19)
[2019-01-22] MEDS: DEXTROSE 5%-0.45% NACL 1,000 ML IV SCH ×2 (23:19→23:21)
[2019-01-22] MEDS: diphenhydrAMINE 50 MG/ML 1 ML VIAL IVP PRN (23:24)
[2019-01-23] MEDS: LACTATED RINGERS 1,000 ML IV SCH ×2 (03:31→23:24)
[2019-01-23 06:41] LABS: HCT 28.7 % (34.0-46.0); MCH 29.9 pg (25.0-35.0); MCHC 32.2 g/dL (31.0-37.0); MCV 92.8 fL (80.0-100.0); Mean Platelet Volume 6.2; Platelet Count 275 k/uL (150-450); RBC 3.09 m/uL (3.80-5.40); RDW 12.6 % (11.5-15.5); WBC 15.6 k/uL (3.8-10.6)
[2019-01-23 06:44] LABS: HGB 9.2 gm/dL (11.4-16.0)
[2019-01-23] MEDS: FAMOTIDINE 20 MG/2 ML VIAL IV SCH ×2 (08:28→20:29)
[2019-01-23] MEDS: diphenhydrAMINE 50 MG/ML 1 ML VIAL IVP PRN (08:28)
[2019-01-23] MEDS: ALVIMOPAN 12 MG CAPSULE PO SCH ×2 (08:28→20:29)
[2019-01-23] MEDS: HEPARIN SODIUM,PORCINE 5,000 UNIT/ML 1 ML VIAL SQ SCH ×3 (08:29→23:23)
[2019-01-23] MEDS: DEXTROSE 5%-0.45% NACL 1,000 ML IV SCH ×3 (08:35→23:24)
--- NOTE | 2019-01-23 12:05 | P.PN ---
<Cielo Mcneal A - Last Filed: 01/23/19 11:56> Subjective Progress Note Date: 01/23/19 CHIEF COMPLAINT: Diverticulitis HISTORY OF PRESENT ILLNESS: Patient is status post low anterior resection with Dr. Felix. POD #1. Patient examined this morning at the bedside. Patient repor ts she was having some abdominal discomfort this morning and her epidural was increased to 7 mL an hour. She does report some associated itching secondary to epidural. She recently received Benadryl. She denies passing flatus. She reports belching this morning. She states she feels bloated. She has been tolerating clear liquids. She reports consuming clear liquid tray for breakfast, along with 6 large cups of water overnight. WBC 15.6. Hemoglobin 9.2. Blood pressure this morning 98/60. Heart rate in the 80s. She is afebrile. PHYSICAL EXAM: VITAL SIGNS: Reviewed. GENERAL: Well-developed in no acute distress. HEENT: No sclera icterus. Extraocular movements grossly intact. Moist buccal mucosa. Head is atraumatic, normocephalic. ABDOMEN: Soft. Bloated. Distended. Midline dressing with saturation at lower aspect of dressing. Hypoactive bowel sounds. NEUROLOGIC: Alert and oriented. Cranial nerves II through XII grossly intact. ASSESSMENT: 1. History of diverticulitis, status post low anterior resection PLAN: 1. Pain control. Continue epidural. Will DC POD #3. 2. Continue Benadryl when necessary for itching. If patients itching becomes too intense, will have anesthesia change epidural solution or will DC epidural and use IVP narcotics for pain control 3. Control troy catheter 4. Continue liquid diet. Spoke with patient at length regarding the large amounts of liquids she is consuming. Patient encouraged to slow down on the quantity of liquids she is consuming. She complains of dry mouth. Encouraged ice chips as well when needed. If patients begins to feel nauseated, has further abdominal distention, or vomits will downgrade diet to NPO 5. Await bowel function 6. Incentive spirometry 7. Activity as tolerated 8. Monitor labs. Repeat CBC in AM Nurse practitioner note has been reviewed by physician. Signing provider agrees with the documented findings, assessment, and plan of care. Objective - Vital Signs Vital signs: Vital Signs Temp 98.0 F 01/23/19 07:25 Pulse 81 01/23/19 07:25 Resp 16 01/23/19 07:25 BP 98/60 01/23/19 07:25 Pulse Ox 94 L 01/23/19 07:25 Intake & Output 01/22/19 01/23/19 01/23/19 18:59 06:59 18:59 Intake Total 2097 1705 Output Total 425 1200 Balance 1672 505 Weight 71.214 kg Intake: IV 1257 Intake, IV Titration 300 625 Amount Dextrose 5%-0.45% NaCl 1, 625 000 ml @ 125 mls/hr IV . Q8H [facility] Rx#:[id number] Lactated Ringers 1,000 ml 300 @ 20 mls/hr IV .Q24H SD Rx#:[id number] Oral 540 1080 Output: Urine 325 1200 Estimated Blood Loss 100 Other: Voiding Method Indwelling Catheter Indwelling Catheter Indwelling Catheter - Labs CBC & Chem 7: 01/23/19 05:44 01/22/19 17:16 Labs: Abnormal Lab Results - Last 24 Hours (Table) 01/22/19 01/22/19 01/23/19 Range/Units 17:16 17:16 05:44 WBC 15.0 H 15.6 H (3.8-10.6) k/uL RBC 3.09 L (3.80-5.40) m/uL Hgb 9.2 L D (11.4-16.0) gm/dL Hct 28.7 L (34.0-46.0) % Neutrophils # 13.7 H (1.3-7.7) k/uL Lymphocytes # 0.9 L (1.0-4.8) k/uL Glucose 107 H (74-99) mg/dL <Alen Felix - Last Filed: 01/23/19 20:59> Subjective As above. Patient drank over 620 ounce glasses of water last night she was thirsty. Today she is feeling somewhat nauseated. Mild bloating. Pain seems to be fairly well controlled however. Labs noted and reviewed. Hemoglobin decreased slightly from yesterday. We'll recheck labs tomorrow. Clear liquids only for now. Ambulate. Objective - Vital Signs Vital signs: Vital Signs Temp 99.3 F 01/23/19 14:15 Pulse 91 01/23/19 14:15 Resp 16 01/23/19 14:15 BP 93/56 01/23/19 14:15 Pulse Ox 91 L 01/23/19 14:15 Intake & Output 01/23/19 01/23/19 01/24/19 06:59 18:59 06:59 Intake Total 1705 150 Output Total 1200 1525 Balance 505 -1375 Intake: Intake, IV Titration 625 Amount Dextrose 5%-0.45% NaCl 1, 625 000 ml @ 125 mls/hr IV . Q8H [facility] Rx#:[id number] Oral 1080 150 Output: Urine 1200 1525 Other: Voiding Method Indwelling Catheter Indwelling Catheter Indwelling Catheter - Labs CBC & Chem 7: 01/23/19 05:44 01/22/19 17:16 Labs: Abnormal Lab Results - Last 24 Hours (Table) 01/23/19 Range/Units 05:44 WBC 15.6 H (3.8-10.6) k/uL RBC 3.09 L (3.80-5.40) m/uL Hgb 9.2 L D (11.4-16.0) gm/dL Hct 28.7 L (34.0-46.0) % Assessment and Plan (1) Diverticulitis Current Visit: Yes Status: Acute Code(s): K57.92 - DVTRCLI OF INTEST, PART UNSP, W/O PERF OR ABSCESS W/O BLEED SNOMED Code(s): 984602231
--- NOTE | 2019-01-23 14:04 | P.PN ---
Progress Note - Text 01/23 600am 63 yr old female s/p sigmoid colectomy. pt has an epidural catheter for post op pain control with a vas of 4. there is no motor or sensory deficits. doing well.plan to continue epidural infusion.
--- NOTE | 2019-01-23 20:24 | P.PN ---
Subjective Progress Note Date: 01/23/19 (delayed charting patient seen at 1215) Principal diagnosis: abdominal, diverticulosis Patient is a 63-year-old female with a past medical history of diverticulitis, GERD, and generalized anxiety who underwent low anterior sigmoid resection on 01/22 without any immediate postoperative complications. We were asked to consult for medical management. She did have slight drop in hemoglobin has anticipated the morning of . Patient seen and examined at bedside. She denies any nausea, slight midline incisional pain but not severe, has passed gas but no bowel movement yet, no vomiting. Has been tolerating clear liquids. Objective - Vital Signs Vital signs: Vital Signs Temp 99.3 F 01/23/19 14:15 Pulse 91 01/23/19 14:15 Resp 16 01/23/19 14:15 BP 93/56 01/23/19 14:15 Pulse Ox 91 L 01/23/19 14:15 Intake & Output 01/23/19 01/23/19 01/24/19 06:59 18:59 06:59 Intake Total 1705 150 Output Total 1200 1525 Balance 505 -1375 Intake: Intake, IV Titration 625 Amount Dextrose 5%-0.45% NaCl 1, 625 000 ml @ 125 mls/hr IV . Q8H [facility] Rx#:[id number] Oral 1080 150 Output: Urine 1200 1525 Other: Voiding Method Indwelling Catheter Indwelling Catheter - Exam General: non toxic, no distress, appears at stated age Derm: warm, dry Head: atraumatic, normocephalic, symmetric Eyes: EOMI, no lid lag, anicteric sclera Mouth: no lip lesion, mucus membranes moist Cardiovascular: S1S2 reg, no murmur, positive posterior tibial pulse bilateral, Lungs: CTA bilateral, no rhonchi, no rales , no accessory muscle use Abdominal: soft, +tender to palpation midline, no guarding, no appreciable organomegaly Ext: no gross muscle atrophy, no edema, no contractures Neuro: CN II-XI grossly intact, no focal neuro deficits Psych: Alert, oriented, appropriate affect - Labs CBC & Chem 7: 01/23/19 05:44 01/22/19 17:16 Labs: Abnormal Lab Results - Last 24 Hours (Table) 01/23/19 Range/Units 05:44 WBC 15.6 H (3.8-10.6) k/uL RBC 3.09 L (3.80-5.40) m/uL Hgb 9.2 L D (11.4-16.0) gm/dL Hct 28.7 L (34.0-46.0) % Assessment and Plan Assessment: Patient is a 63-year-old female status post sigmoid resection secondary to recurrent episodes of diverticulitis. Postoperative management as per general surgery. Acute blood loss anemia, anticipated outcome of surgery -Follow CBC -Normal blood count prior to surgery and likely should correct on its own without intervention -Repeat CBC in 1 week. Leukocytosis, suspect reactive -Repeat CBC in a.m. -Follow fever profiles GERD -PPI Anxiety - resume lexapro, stop zofran not used recently and also on reglan all which prolong Qt. Thank you for allowing us to participate in the care of this patient. Do not hesitate to contact us with questions. Someone can be reached from the [facility] hospitalist group at all hours of the day at [phone].
[2019-01-24] MEDS: ROPIVACAINE 400 MG, HYDROMORPHONE (PF) 5 MG in SODIUM CHLORIDE 0.9% 170 ML EPIDURAL PRN (00:16)
[2019-01-24] MEDS: ALVIMOPAN 12 MG CAPSULE PO SCH ×2 (07:22→20:40)
[2019-01-24] MEDS: HEPARIN SODIUM,PORCINE 5,000 UNIT/ML 1 ML VIAL SQ SCH ×3 (07:23→23:14)
[2019-01-24] MEDS: ESCITALOPRAM 20 MG TAB PO SCH (07:23)
[2019-01-24] MEDS: FAMOTIDINE 20 MG/2 ML VIAL IV SCH ×2 (07:23→20:40)
[2019-01-24] MEDS: DEXTROSE 5%-0.45% NACL 1,000 ML IV SCH ×3 (07:23→23:15)
--- NOTE | 2019-01-24 08:00 | P.PN ---
Progress Note - Text Progress Note Date: 01/24/19 Patient with complaints of RLQ pain. Denies pain in the rest of the incision. Ambulating without weakness. Denies headache. Epidural @ 7 ml/hr VSS Epidural site clean and dry A/P POD#2 s/p sigmoid colectomy - increase epidural to 9 ml/hr - bolus 5 ml
[2019-01-24 08:03] LABS: Basophils % (A) 0 %; Eosinophils % (A) 1 %; HCT 29.2 % (34.0-46.0); HGB 9.3 gm/dL (11.4-16.0); Lymphocytes # (A) 2.2 k/uL (1.0-4.8); Lymphocytes % (A) 25 %; MCH 29.8 pg (25.0-35.0); MCV 93.3 fL (80.0-100.0); Mean Platelet Volume 6.4; Monocytes # (A) 0.5 k/uL (0-1.0); Monocytes % (A) 6 %; Neutrophils # (A) 5.9 k/uL (1.3-7.7); Neutrophils % (A) 67 %; Platelet Count 230 k/uL (150-450); RBC 3.13 m/uL (3.80-5.40); RDW 12.5 % (11.5-15.5); WBC 8.9 k/uL (3.8-10.6)
[2019-01-24] MEDS ORDERED: ONDANSETRON 4 MG/2 ML VIAL IVP PRN (08:11)
[2019-01-24 08:16] LABS: African American GFR (CKD) >90 (>60 ml/min/1.73 sqM); Anion Gap 5 mmol/L; Blood Urea Nitrogen 3 mg/dL (7-17); Calcium 8.4 mg/dL (8.4-10.2); Carbon Dioxide 29 mmol/L (22-30); Chloride 101 mmol/L (98-107); Glucose 109 mg/dL (74-99); Potassium 3.9 mmol/L (3.5-5.1); Sodium 135 mmol/L (137-145)
--- NOTE | 2019-01-24 11:30 | P.PN ---
<McnealCielo A - Last Filed: 01/24/19 11:26> Subjective Progress Note Date: 01/24/19 CHIEF COMPLAINT: Diverticulitis HISTORY OF PRESENT ILLNESS: Patient is status post low anterior resection with Dr. Felix. POD #2. Patient examined this morning at the bedside. Patient complai shannan of some increased right lower quadrant pain this morning. Anesthesia was notified. Patient received 5cc bolus via epidural and infusion was increased to 9cc/hr. Patient tolerating clear liquid diet. Passing flatus a couple times this morning. No BM. She does report some nausea this morning. No emesis. Feels less bloated today. WBC 8.9. Hemoglobin 9.3. PHYSICAL EXAM: VITAL SIGNS: Reviewed. GENERAL: Well-developed in no acute distress. HEENT: No sclera icterus. Extraocular movements grossly intact. Moist buccal mucosa. Head is atraumatic, normocephalic. ABDOMEN: Soft. Mildly bloated, improved from yesterday. Midline dressing with shadowing present. Hypoactive bowel sounds. NEUROLOGIC: Alert and oriented. Cranial nerves II through XII grossly intact. ASSESSMENT: 1. History of diverticulitis, status post low anterior resection PLAN: 1. Pain control. Continue epidural. Will DC POD #3 (tomorrow) 2. Continue troy catheter 3. Continue clear liquid diet 4. Await bowel function 5. Incentive spirometry 6. Activity as tolerated Nurse practitioner note has been reviewed by physician. Signing provider agrees with the documented findings, assessment, and plan of care. Objective - Vital Signs Vital signs: Vital Signs Temp 98.2 F 01/24/19 07:00 Pulse 107 H 01/24/19 07:00 Resp 16 01/24/19 07:00 BP 123/75 01/24/19 07:00 Pulse Ox 88 L 01/24/19 07:00 Intake & Output 01/23/19 01/24/19 01/24/19 18:59 06:59 18:59 Intake Total 150 2319.55 253.383 Output Total 1525 3800 Balance -1375 -1480.45 253.383 Intake: Intake, IV Titration 639.55 73.383 Amount Dextrose 5%-0.45% NaCl 1, 530 000 ml @ 125 mls/hr IV . Q8H [facility] Rx#:[id number] Ropivacaine 400 mg 109.55 73.383 Hydromorphone (Pf) 5 mg In Sodium Chloride 0.9% 170 ml @ Per Protocol EPIDURAL .Q0M PRN Rx#: [id number] Oral 150 1680 180 Output: Urine 1525 3800 Other: Voiding Method Indwelling Catheter Indwelling Catheter Indwelling Catheter - Labs CBC & Chem 7: 01/24/19 07:33 01/24/19 07:33 Labs: Abnormal Lab Results - Last 24 Hours (Table) 01/24/19 01/24/19 Range/Units 07:33 07:33 RBC 3.13 L (3.80-5.40) m/uL Hgb 9.3 L (11.4-16.0) gm/dL Hct 29.2 L (34.0-46.0) % Sodium 135 L (137-145) mmol/L BUN 3 L (7-17) mg/dL Glucose 109 H (74-99) mg/dL <Alen Felix - Last Filed: 01/24/19 12:12> Subjective As above. Patient having some lower abdominal pain. White blood cell count normal. No fevers. Will add Toradol for pain control at this time. Remove Troy catheter and epidural tomorrow. Continue clear liquids only. Increase activity. Objective - Vital Signs Vital signs: Vital Signs Temp 98.2 F 01/24/19 07:00 Pulse 107 H 01/24/19 07:00 Resp 16 01/24/19 07:00 BP 123/75 01/24/19 07:00 Pulse Ox 88 L 01/24/19 07:00 Intake & Output 01/23/19 01/24/19 01/24/19 18:59 06:59 18:59 Intake Total 150 2319.55 253.383 Output Total 1525 3800 Balance -1375 -1480.45 253.383 Intake: Intake, IV Titration 639.55 73.383 Amount Dextrose 5%-0.45% NaCl 1, 530 000 ml @ 125 mls/hr IV . Q8H [facility] Rx#:[id number] Ropivacaine 400 mg 109.55 73.383 Hydromorphone (Pf) 5 mg In Sodium Chloride 0.9% 170 ml @ Per Protocol EPIDURAL .Q0M PRN Rx#: [id number] Oral 150 1680 180 Output: Urine 1525 3800 Other: Voiding Method Indwelling Catheter Indwelling Catheter Indwelling Catheter - Labs CBC & Chem 7: 01/24/19 07:33 01/24/19 07:33 Labs: Abnormal Lab Results - Last 24 Hours (Table) 01/24/19 01/24/19 Range/Units 07:33 07:33 RBC 3.13 L (3.80-5.40) m/uL Hgb 9.3 L (11.4-16.0) gm/dL Hct 29.2 L (34.0-46.0) % Sodium 135 L (137-145) mmol/L BUN 3 L (7-17) mg/dL Glucose 109 H (74-99) mg/dL Assessment and Plan (1) Diverticulitis Current Visit: Yes Status: Acute Code(s): K57.92 - DVTRCLI OF INTEST, PART UNSP, W/O PERF OR ABSCESS W/O BLEED SNOMED Code(s): 116224638
[2019-01-24] MEDS: KETOROLAC 30 MG/ML 1 ML VIAL IVP SCH ×3 (13:55→23:14)
--- NOTE | 2019-01-24 16:10 | P.PN ---
Subjective Progress Note Date: 01/24/19 (delayed charting seen at 0800) Principal diagnosis: abdominal, diverticulosis Patient is a 63-year-old female with a past medical history of diverticulitis, GERD, and generalized anxiety who underwent low anterior sigmoid resection on 01/22 without any immediate postoperative complications. We were asked to consult for medical management. She did have slight drop in hemoglobin has anticipated the morning of 01/23. Having slight increase in pain the morning of 01/24 and epidural increased. Patient seen and examined at bedside. No nausea, increased pain in lower abdomen, no shortness of breath, feeling yucky. Objective - Vital Signs Vital signs: Vital Signs Temp 98.7 F 01/24/19 13:37 Pulse 93 01/24/19 13:37 Resp 16 01/24/19 13:37 BP 109/68 01/24/19 13:37 Pulse Ox 94 L 01/24/19 13:37 Intake & Output 01/23/19 01/24/19 01/24/19 18:59 06:59 18:59 Intake Total 150 2319.55 2513.383 Output Total 1525 3800 Balance -1375 -1480.45 2513.383 Intake: Intake, IV Titration 639.55 1073.383 Amount Dextrose 5%-0.45% NaCl 1, 530 1000 000 ml @ 125 mls/hr IV . Q8H [facility] Rx#:[id number] Ropivacaine 400 mg 109.55 73.383 Hydromorphone (Pf) 5 mg In Sodium Chloride 0.9% 170 ml @ Per Protocol EPIDURAL .Q0M PRN Rx#: [id number] Oral 150 1680 1440 Output: Urine 1525 3800 Other: Voiding Method Indwelling Catheter Indwelling Catheter Indwelling Catheter - Exam General:ill appearing, no distress, appears at stated age Derm: warm, dry Head: atraumatic, normocephalic, symmetric Eyes: EOMI, no lid lag, anicteric sclera Mouth: no lip lesion, mucus membranes moist Cardiovascular: S1S2 reg, no murmur, positive posterior tibial pulse bilateral, Lungs: decreased breath sounds bilateral, no rhonchi, no rales , no accessory muscle use Abdominal: soft, +tender to palpation midline, no guarding, no appreciable organomegaly Ext: no gross muscle atrophy, no edema, no contractures Neuro: CN II-XI grossly intact, no focal neuro deficits Psych: Alert, oriented, appropriate affect - Labs CBC & Chem 7: 01/24/19 07:33 01/24/19 07:33 Labs: Abnormal Lab Results - Last 24 Hours (Table) 01/24/19 01/24/19 Range/Units 07:33 07:33 RBC 3.13 L (3.80-5.40) m/uL Hgb 9.3 L (11.4-16.0) gm/dL Hct 29.2 L (34.0-46.0) % Sodium 135 L (137-145) mmol/L BUN 3 L (7-17) mg/dL Glucose 109 H (74-99) mg/dL Assessment and Plan Assessment: Patient is a 63-year-old female status post sigmoid resection secondary to recurrent episodes of diverticulitis. Postoperative management as per general surgery. Acute blood loss anemia, anticipated outcome of surgery -Follow CBC -Normal blood count prior to surgery and likely should correct on its own without intervention -Repeat CBC in 1 week. GERD -PPI Anxiety - Lexapro. Leukocytosis, resolved Thank you for allowing us to participate in the care of this patient. Will follow intermittently. Do not hesitate to contact us with questions. Someone can be reached from the [facility] hospitalist group at all hours of the day at [phone].
[2019-01-25] MEDS: ROPIVACAINE 400 MG, HYDROMORPHONE (PF) 5 MG in SODIUM CHLORIDE 0.9% 170 ML EPIDURAL PRN (03:32)
--- NOTE | 2019-01-25 05:19 | P.PN ---
Progress Note - Text Progress Note Date: 01/25/19 63 yo female s/p sigmoid colectomy POD#3, post epidural catheter day#4. Patient had good night sleep. No major complaints. Pain VAS=0 at rest, 4-5/10 when she ambulates or move around. Epidural catheter insertion site dry and clean. No motor or sensory deficit. Will keep the epidural rate at 9cc/hr. Consider discontinuing epidural this evening or tomorrow morning.
[2019-01-25] MEDS: KETOROLAC 30 MG/ML 1 ML VIAL IVP SCH ×4 (05:20→22:59)
[2019-01-25] MEDS: LACTATED RINGERS 1,000 ML IV SCH (05:21)
[2019-01-25 07:07] LABS: Basophils % (A) 0 %; Eosinophils # (A) 0.1 k/uL (0-0.7); Eosinophils % (A) 1 %; HGB 8.7 gm/dL (11.4-16.0); Lymphocytes % (A) 23 %; MCH 29.7 pg (25.0-35.0); MCHC 32.3 g/dL (31.0-37.0); MCV 91.9 fL (80.0-100.0); Mean Platelet Volume 6.3; Monocytes # (A) 0.6 k/uL (0-1.0); Monocytes % (A) 7 %; Neutrophils # (A) 5.7 k/uL (1.3-7.7); Neutrophils % (A) 67 %; Platelet Count 214 k/uL (150-450); RBC 2.94 m/uL (3.80-5.40); RDW 12.3 % (11.5-15.5); WBC 8.5 k/uL (3.8-10.6)
[2019-01-25] MEDS: FAMOTIDINE 20 MG/2 ML VIAL IV SCH ×2 (07:07→20:22)
[2019-01-25] MEDS: ESCITALOPRAM 20 MG TAB PO SCH (07:07)
[2019-01-25] MEDS: ALVIMOPAN 12 MG CAPSULE PO SCH ×2 (07:07→20:22)
[2019-01-25] MEDS: HEPARIN SODIUM,PORCINE 5,000 UNIT/ML 1 ML VIAL SQ SCH ×3 (07:12→23:00)
[2019-01-25] MEDS: DEXTROSE 5%-0.45% NACL 1,000 ML IV SCH ×3 (07:14→22:32)
[2019-01-25 07:18] LABS: African American GFR (CKD) >90 (>60 ml/min/1.73 sqM); Anion Gap 6 mmol/L; Blood Urea Nitrogen <2 mg/dL (7-17); Calcium 8.3 mg/dL (8.4-10.2); Carbon Dioxide 28 mmol/L (22-30); Chloride 102 mmol/L (98-107); Glucose 115 mg/dL (74-99); Potassium 3.7 mmol/L (3.5-5.1); Sodium 136 mmol/L (137-145)
[2019-01-25] MEDS: HYDROcodone/APAP 5-325MG 1 EACH TAB PO PRN ×2 (10:53→17:35)
--- NOTE | 2019-01-25 13:19 | P.PN ---
Subjective Progress Note Date: 01/25/19 CHIEF COMPLAINT: Diverticulitis HISTORY OF PRESENT ILLNESS: Patient is status post low anterior resection with Dr. Felix. POD #3. Patient examined this morning at the bedside. Her pain is tolerable. Epidural infusing. Tolerating clear liquid diet. Denies nausea or vomiting. Passing flatus and had a couple small bowel movements this morning. WBC 8.5. Hemoglobin 8.7. PHYSICAL EXAM: VITAL SIGNS: Reviewed. GENERAL: Well-developed in no acute distress. HEENT: No sclera icterus. Extraocular movements grossly intact. Moist buccal mucosa. Head is atraumatic, normocephalic. ABDOMEN: Soft. Mildly bloated. Midline dressing with shadowing present. NEUROLOGIC: Alert and oriented. Cranial nerves II through XII grossly intact. ASSESSMENT: 1. History of diverticulitis, status post low anterior resection PLAN: 1. Pain control. Discontinue epidural catheter. Begin [place] PRN 2. Discontinue troy catheter 3. Advance diet to full liquid 4. Incentive spirometry 5. Activity as tolerated 6. Possible discharge home tomorrow Nurse practitioner note has been reviewed by physician. Signing provider agrees with the documented findings, assessment, and plan of care. Objective - Vital Signs Vital signs: Vital Signs Temp 99.2 F 01/25/19 07:00 Pulse 86 01/25/19 07:00 Resp 16 01/25/19 07:25 BP 113/67 01/25/19 07:00 Pulse Ox 92 L 01/25/19 07:00 Intake & Output 01/24/19 01/25/19 01/25/19 18:59 06:59 18:59 Intake Total 2513.383 154.8 Output Total 1200 800 Balance 1313.383 -645.2 Intake: Intake, IV Titration 1073.383 154.8 Amount Dextrose 5%-0.45% NaCl 1, 1000 000 ml @ 125 mls/hr IV . Q8H [facility] Rx#:[id number] Ropivacaine 400 mg 73.383 154.8 Hydromorphone (Pf) 5 mg In Sodium Chloride 0.9% 170 ml @ Per Protocol EPIDURAL .Q0M PRN Rx#: [id number] Oral 1440 Output: Urine 1200 800 Uretheral ([place]) 1200 Other: Voiding Method Indwelling Catheter Indwelling Catheter - Labs CBC & Chem 7: 01/25/19 06:50 01/25/19 06:50 Labs: Abnormal Lab Results - Last 24 Hours (Table) 01/25/19 01/25/19 Range/Units 06:50 06:50 RBC 2.94 L (3.80-5.40) m/uL Hgb 8.7 L (11.4-16.0) gm/dL Hct 27.0 L (34.0-46.0) % Sodium 136 L (137-145) mmol/L BUN <2 L (7-17) mg/dL Glucose 115 H (74-99) mg/dL Calcium 8.3 L (8.4-10.2) mg/dL
--- NOTE | 2019-01-25 15:30 | P.PN ---
Subjective Progress Note Date: 01/25/19 The patient was seen and examined at the bedside. She notes no pain at the time of interview. She was in good spirits, and noted that she is passing urine and having bowel movements. The patient had her epidural removed earlier today. She denied fever, chills, nausea, vomiting, chest pain, or shortness of breath. Objective - Vital Signs Vital signs: Vital Signs Temp 97.7 F 01/25/19 14:07 Pulse 70 01/25/19 14:07 Resp 16 01/25/19 14:07 BP 107/63 01/25/19 14:07 Pulse Ox 93 L 01/25/19 14:07 Intake & Output 01/24/19 01/25/19 01/25/19 18:59 06:59 18:59 Intake Total 2513.383 154.8 Output Total 1200 800 Balance 1313.383 -645.2 Intake: Intake, IV Titration 1073.383 154.8 Amount Dextrose 5%-0.45% NaCl 1, 1000 000 ml @ 125 mls/hr IV . Q8H [facility] Rx#:[id number] Ropivacaine 400 mg 73.383 154.8 Hydromorphone (Pf) 5 mg In Sodium Chloride 0.9% 170 ml @ Per Protocol EPIDURAL .Q0M PRN Rx#: [id number] Oral 1440 Output: Urine 1200 800 Uretheral ([place]) 1200 Other: Voiding Method Indwelling Catheter Indwelling Catheter # Voids 2 - Exam General: Non-toxic, in no acute distress, appears stated age, normal weight HEENT: NC/AT, anicteric sclerae, moist conjunctiva, no lid-lag, PERRLA Cardiovascular: S1/S2 wnl, no murmurs, rubs, or gallops Lungs: Clear to auscultation, normal respiratory effort, no accessory muscle use Abdominal: Postsurgical, incisions clean and dry, non-distended, no guarding, rebound, or rigidity Skin: Warm, dry Extremities: No edema or contractures Psychiatric: Alert and oriented to person, place and time, appropriate affect Neuro: CN II-XII grossly intact, no focal neuro deficits - Labs CBC & Chem 7: 01/25/19 06:50 01/25/19 06:50 Labs: Abnormal Lab Results - Last 24 Hours (Table) 01/25/19 01/25/19 Range/Units 06:50 06:50 RBC 2.94 L (3.80-5.40) m/uL Hgb 8.7 L (11.4-16.0) gm/dL Hct 27.0 L (34.0-46.0) % Sodium 136 L (137-145) mmol/L BUN <2 L (7-17) mg/dL Glucose 115 H (74-99) mg/dL Calcium 8.3 L (8.4-10.2) mg/dL Assessment and Plan Plan: Diverticulosis with multiple bouts of diverticulitis, status post sigmoid r esection POD #0 -Will defer management including pain control to surgical team Normocytic anemia, likely acute blood loss anticipated outcome of surgery -Continue to monitor GERD -C/w home med: Prilosec Generalized anxiety disorder -C/w Lexapro home med DVT prop -As per surgical service, currently on Heparin
[2019-01-26 02:13] VITALS: TEMP 98.2
[2019-01-26] MEDS: KETOROLAC 30 MG/ML 1 ML VIAL IVP SCH (05:06)
[2019-01-26] MEDS: LACTATED RINGERS 1,000 ML IV SCH (05:07)
[2019-01-26] MEDS: ALVIMOPAN 12 MG CAPSULE PO SCH (06:52)
[2019-01-26] MEDS: HYDROcodone/APAP 5-325MG 1 EACH TAB PO PRN (06:52)
[2019-01-26] MEDS: ESCITALOPRAM 20 MG TAB PO SCH (06:53)
[2019-01-26] MEDS: HEPARIN SODIUM,PORCINE 5,000 UNIT/ML 1 ML VIAL SQ SCH (06:54)
[2019-01-26] MEDS: FAMOTIDINE 20 MG/2 ML VIAL IV SCH (06:55)
[2019-01-26] MEDS: DEXTROSE 5%-0.45% NACL 1,000 ML IV SCH (06:56)
[2019-01-26 07:29] VITALS: BP 159/82; PULSE 81; RESP 16
[2019-01-26 08:00] LABS: Basophils % (A) 0 %; Eosinophils # (A) 0.2 k/uL (0-0.7); Eosinophils % (A) 2 %; HCT 31.1 % (34.0-46.0); HGB 10.1 gm/dL (11.4-16.0); Lymphocytes # (A) 1.5 k/uL (1.0-4.8); Lymphocytes % (A) 17 %; MCH 29.6 pg (25.0-35.0); MCHC 32.5 g/dL (31.0-37.0); MCV 91.2 fL (80.0-100.0); Mean Platelet Volume 6.1; Monocytes # (A) 0.5 k/uL (0-1.0); Monocytes % (A) 5 %; Neutrophils # (A) 6.4 k/uL (1.3-7.7); Neutrophils % (A) 74 %; Platelet Count 289 k/uL (150-450); RBC 3.41 m/uL (3.80-5.40); RDW 12.3 % (11.5-15.5); WBC 8.6 k/uL (3.8-10.6)
[2019-01-26 08:18] LABS: African American GFR (CKD) >90 (>60 ml/min/1.73 sqM); Anion Gap 4 mmol/L; Blood Urea Nitrogen <2 mg/dL (7-17); Calcium 9.3 mg/dL (8.4-10.2); Carbon Dioxide 30 mmol/L (22-30); Chloride 106 mmol/L (98-107); Glucose 142 mg/dL (74-99); Sodium 140 mmol/L (137-145)
--- NOTE | 2019-01-26 11:11 | P.DS ---
Providers Date of admission: 01/22/19 10:10 Expected date of discharge: 01/26/19 Attending physician: Alen Felix Consults: 01/22/19 14:50 Consult Physician Routine Consulting Provider: Trudi Lynn Consult Reason/Comments: Medical management Do you want consulting provider notified?: Yes Primary care physician: Nj Pineda Hospital Course: 63-year-old female who underwent low anterior resection with Dr. Felix. Patient did well postoperatively without any immediate complications. She had an epidural postoperatively which has since been discontinued. Her pain is controlled on oral medications. Her diet was advanced as tolerated. She is passing flatus and having bowel movements. Tolerating diet without nausea or vomiting. Vital signs have been stable. White count within normal limits. Hemoglobin is stable. She is stable for discharge home today. Please see EMR for further hospital course details. Discharge Diagnosis: 1. History of diverticulitis, status post low anterior resection Nurse practitioner note has been reviewed by physician. Signing provider agrees with the documented findings, assessment, and plan of care. Patient Condition at Discharge: Stable Plan - Discharge Summary Discharge Rx Participant: Yes New Discharge Prescriptions: New Hydrocodone/Acetaminophen [Kasson 5-325] 1 tab PO Q4HR PRN 3 Days #18 tab PRN Reason: Pain Continue Omeprazole [PriLOSEC] 20 mg PO AC-BRKFST Escitalopram [Lexapro] 20 mg PO DAILY Discharge Medication List Omeprazole [PriLOSEC] 20 mg PO AC-BRKFST 02/08/17 [History] Escitalopram [Lexapro] 20 mg PO DAILY 09/13/18 [History] Hydrocodone/Acetaminophen [[place] 5-325] 1 tab PO Q4HR PRN 3 Days #18 tab 01/26/19 [Rx] Follow up Appointment(s)/Referral(s): Alen Felix MD [Medical Doctor] - 02/01/19 10:40 am Nj Pineda MD [Primary Care Provider] - 02/01/19 1:45 pm Patient Instructions/Handouts: Diverticulitis (DC) Activity/Diet/Wound Care/Special Instructions: No driving while taking [place] No lifting over 10 pounds You may shower. No soaking or tub baths Very light activity until you are reevaluated at your follow up appointment with your surgeon Diet as tolerated You may remove abdominal dressing in 4 days and then leave incision open to air. Discharge Disposition: HOME WITH HOME HEALTH SERVICES
--- NOTE | 2019-01-26 11:37 | P.PN ---
Subjective Progress Note Date: 01/26/19 Patient up and ambulatory doing well mild abdominal pain having bowel movements and passing gas. No acute events overnight Objective - Vital Signs Vital signs: Vital Signs Temp 98.2 F 01/26/19 07:00 Pulse 81 01/26/19 07:00 Resp 16 01/26/19 07:00 BP 159/82 01/26/19 07:00 Pulse Ox 97 01/26/19 07:00 Intake & Output 01/25/19 01/26/19 01/26/19 18:59 06:59 18:59 Intake Total 480 Output Total 300 Balance -300 480 Intake: Oral 480 Output: Urine 300 Other: Voiding Method Toilet # Voids 2 1 - Exam Constitutional: No acute distress, conversant, pleasant Eyes: Anicteric sclerae, moist conjunctiva, no lid-lag, PERRLA ENMT: NC/AT,Oropharynx clear, no erythema, exudates Neck:Supple, FROM, no masses, or JVD, No carotid bruits; No thyromegaly Lungs: Clear to auscultation, Clear to percussion, Normal respiratory effort, no accessory muscle use Cardiovascular: Heart regular in rate and rhythm, No murmurs, gallops, or rubs no peripheral edema Abdominal: Soft Nontender, nom distended, no guarding, no rebound or rigidity, Normoactive bowel sounds No hepatomegaly, No splenomegaly, No palpable mass No abdominal wall hernia noted Skin: Normal temperature, tone, texture, turgor, No induration No subcutaneous nodules, No rash, lesions, No ulcers Extremities:No digital cyanosis No clubbing, Pedal pulses intact and s ymmetrical Radial pulses intact and symmetrical Normal gait and station, No calf tenderness Psychiatric: Alert and oriented to person, place and time, Appropriate affect Intact judgement Neuro: Muscles Strength 5/5 in all 4 extremities, Sensation to light touch grossly present throughout, Cranial nerves II-XII grossly intact. No focal sensory deficits - Labs CBC & Chem 7: 01/26/19 07:44 01/26/19 07:44 Labs: Abnormal Lab Results - Last 24 Hours (Table) 01/26/19 01/26/19 Range/Units 07:44 07:44 RBC 3.41 L (3.80-5.40) m/uL Hgb 10.1 L (11.4-16.0) gm/dL Hct 31.1 L (34.0-46.0) % BUN <2 L (7-17) mg/dL Creatinine 0.50 L (0.52-1.04) mg/dL Glucose 142 H (74-99) mg/dL Assessment and Plan Plan: Diverticulosis with multiple bouts of diverticulitis, status post sigmoid resection POD #0 -Will defer management including pain control to surgical team Normocytic anemia, likely acute blood loss anticipated outcome of surgery -Continue to monitor GERD -C/w home med: Prilosec Generalized anxiety disorder -C/w Lexapro home med Disposition patient doing well stable for discharge
== END 2019-01-26 10:33 | disposition home or self-care (01) | DRG 330 ==
LOC: 2ORMAIN 10:10 → EDSTATUS 12:00 → 4SSUR 14:39
PROVIDERS: ADMIT Surgery; ATTEND Surgery
PROC: 0DTN0ZZ Resection of Sigmoid Colon, Open Approach (ICD-10-PCS; principal; 2019-01-22 12:00)
DX: K57.30 Diverticulosis of large intestine without perforation or abscess without bleeding (principal); D62 Acute posthemorrhagic anemia; D72.829 Elevated white blood cell count, unspecified; G89.29 Other chronic pain; F41.1 Generalized anxiety disorder; K21.9 Gastro-esophageal reflux disease without esophagitis; Z79.899 Other long term (current) drug therapy; Z87.19 Personal history of other diseases of the digestive system; Z87.42 Personal history of other diseases of the female genital tract; Z98.890 Other specified postprocedural states; Z80.7 Family history of other malignant neoplasms of lymphoid, hematopoietic and related tissues; Z83.2 Family history of diseases of the blood and blood-forming organs and certain disorders involving the immune mechanism; Z80.8 Family history of malignant neoplasm of other organs or systems; Z82.49 Family history of ischemic heart disease and other diseases of the circulatory system
CPT/HCPCS: 80048; 85025; 85027; 86850; 86900; 86901; 88307

== ENCOUNTER 2019-02-20 09:54 | Inpatient (IN) | payer MEDICARE ==
[2019-02-20] MEDS ORDERED: SODIUM CHLORIDE 0.9% 1,000 ML IV STA ×2 (10:14)
[2019-02-20] MEDS ORDERED: MORPHINE SULFATE 2 MG/ML SYRINGE IVP STA (10:14)
--- NOTE | 2019-02-20 10:18 | ED ---
Abdominal Pain HPI - General Chief Complaint: Abdominal Pain Stated Complaint: abdoninal pain Time Seen by Provider: 02/20/19 10:05 Source: patient, RN notes reviewed, old records reviewed Mode of arrival: ambulatory Limitations: no limitations - History of Present Illness Initial Comments: Patient is a 63-year-old female, she presents emergency Department today with lower abdominal pain. She reports she's had persistent pain since her bowel resection approximately one month ago. She reports that this was done by Dr. Felix. She states that she did develop a incision site infection at one point, and was placed on Keflex. But she does believe that it was my likely more a reaction to the chas. She reports she's had her chas out approximately a week ago and her incision site has been well. She states that she's had normal formed stools a normal urination. She denies any specific fever. Patient reports that she's been having a persistent hurting and occasional sharp pain within her lower abdomen, beneath her incision site. Patient states that the pain seems to persist regardless of positioning. Patient denies any heavy lifting. - Related Data Home Medications Medication Instructions Recorded Confirmed Omeprazole [PriLOSEC] 20 mg PO AC-BRKFST 02/08/17 02/20/19 Escitalopram [Lexapro] 20 mg PO DAILY 09/13/18 02/20/19 Cholecalciferol [Vitamin D3 (25 5,000 unit PO DAILY 02/20/19 02/20/19 Mcg = 1000 Iu)] L.acidoph,Paracasei, B.lactis 1 cap PO DAILY 02/20/19 02/20/19 [Probiotic] Allergies Allergy/AdvReac Type Severity Reaction Status Date / Time No Known Allergies Allergy Verified 02/20/19 12:29 Review of Systems ROS Statement: Those systems with pertinent positive or pertinent negative responses have been documented in the HPI. ROS Other: All systems not noted in ROS Statement are negative. Past Medical History Past Medical History: Chest Pain / Angina, GERD/Reflux Additional Past Medical History / Comment(s): Gastritis, diverticulosis, diverticulitis. History of Any Multi-Drug Resistant Organisms: None Reported Past Surgical History: Bowel Resection, Orthopedic Surgery Additional Past Surgical History / Comment(s): EGD, COLONOSCOPY, OVARIAN CYST (1991). right knee torn meniscus, Past Anesthesia/Blood Transfusion Reactions: No Reported Reaction Past Psychological History: Anxiety Smoking Status: Never smoker Past Alcohol Use History: Rare Past Drug Use History: None Reported - Past Family History Mother Family Medical History: Deep Vein Thrombosis (DVT) Additional Family Medical History / Comment(s): . Father Family Medical History: Cancer Additional Family Medical History / Comment(s): LYMPHOMA. Daughter(s) Family Medical History: Cancer Additional Family Medical History / Comment(s): THYROID CANCER General Exam - General Exam Comments Initial Comments: 63-year-old female. Alert and oriented 3. Patient appears in no significant distress. Limitations: no limitations General appearance: alert, in no apparent distress Head exam: Present: atraumatic, normocephalic, normal inspection Eye exam: Present: normal appearance, PERRL, EOMI. Absent: scleral icterus, conjunctival injection, periorbital swelling ENT exam: Present: normal exam, mucous membranes moist Neck exam: Present: normal inspection. Absent: tenderness, meningismus, lymphadenopathy Respiratory exam: Present: normal lung sounds bilaterally Cardiovascular Exam: Present: regular rate, normal rhythm, normal heart sounds. Absent: systolic murmur, diastolic murmur, rubs, gallop, clicks GI/Abdominal exam: Present: soft, tenderness (suprapubic and periumbilical pain. Well appearing incision site, no dehiscence or erythema), normal bowel sounds. Absent: distended, guarding, rebound, rigid Extremities exam: Present: normal inspection, full ROM, normal capillary refill. Absent: tenderness, pedal edema, joint swelling, calf tenderness Back exam: Present: normal inspection Neurological exam: Present: alert, oriented X3, CN II-XII intact Psychiatric exam: Present: normal affect, normal mood Course Vital Signs 02/20/19 09:58 Temperature 97.9 F Pulse Rate 83 Respiratory 24 Rate Blood Pressure 147/87 O2 Sat by Pulse 97 Oximetry Medical Decision Making - Medical Decision Making 63-year-old female presents one month post bowel resection. She can please of suprapubic pain. Her incision site appears well. Patient had IV fluids labwork obtained. Blood work was reviewed and unremarkable. Due to persistent pain CAT scan was ordered. There is evidence of 3 separate fluid collections within the anastomosis site, concern for possible abscess. Stressed the case with Dr. Preciado discussed the case with Dr. Felix. Patient was started on Zosyn and will consult infectious disease Dr. Adhikari. - Lab Data Result diagrams: 02/20/19 10:20 02/20/19 10:20 Lab Results 02/20/19 02/20/19 02/20/19 Range/Units 10:20 10:20 10:20 WBC 9.0 (3.8-10.6) k/uL RBC 3.85 (3.80-5.40) m/uL Hgb 11.2 L (11.4-16.0) gm/dL Hct 34.4 (34.0-46.0) % MCV 89.3 (80.0-100.0) fL MCH 29.2 (25.0-35.0) pg MCHC 32.7 (31.0-37.0) g/dL RDW 12.2 (11.5-15.5) % Plt Count 390 (150-450) k/uL Neutrophils % 56 % Lymphocytes % 31 % Monocytes % 6 % Eosinophils % 2 % Basophils % 1 % Neutrophils # 5.1 (1.3-7.7) k/uL Lymphocytes # 2.8 (1.0-4.8) k/uL Monocytes # 0.6 (0-1.0) k/uL Eosinophils # 0.2 (0-0.7) k/uL Basophils # 0.1 (0-0.2) k/uL PT (9.0-12.0) sec INR (<1.2) APTT (22.0-30.0) sec Sodium 138 (137-145) mmol/L Potassium 4.9 (3.5-5.1) mmol/L Chloride 104 (98-107) mmol/L Carbon Dioxide 24 (22-30) mmol/L Anion Gap 10 mmol/L BUN 16 (7-17) mg/dL Creatinine 0.55 (0.52-1.04) mg/dL Est GFR (CKD-EPI)AfAm >90 (>60 ml/min/1.73 sqM) Est GFR (CKD-EPI)NonAf >90 (>60 ml/min/1.73 sqM) Glucose 104 H (74-99) mg/dL Plasma Lactic Acid Salvador 1.0 (0.7-2.0) mmol/L Calcium 9.8 (8.4-10.2) mg/dL Total Bilirubin 0.5 (0.2-1.3) mg/dL AST 30 (14-36) U/L ALT 31 (9-52) U/L Alkaline Phosphatase 90 (38-126) U/L Total Protein 8.8 H (6.3-8.2) g/dL Albumin 4.0 (3.5-5.0) g/dL Amylase 33 (30-110) U/L Lipase 133 (23-300) U/L Urine Color Urine Appearance (Clear) Urine pH (5.0-8.0) Ur Specific [place] (1.001-1.035) Urine Protein (Negative) Urine Glucose (UA) (Negative) Urine Ketones (Negative) Urine Blood (Negative) Urine Nitrite (Negative) Urine Bilirubin (Negative) Urine Urobilinogen (<2.0) mg/dL Ur Leukocyte Esterase (Negative) 02/20/19 02/20/19 Range/Units 10:20 10:38 WBC (3.8-10.6) k/uL RBC (3.80-5.40) m/uL Hgb (11.4-16.0) gm/dL Hct (34.0-46.0) % MCV (80.0-100.0) fL MCH (25.0-35.0) pg MCHC (31.0-37.0) g/dL RDW (11.5-15.5) % Plt Count (150-450) k/uL Neutrophils % % Lymphocytes % % Monocytes % % Eosinophils % % Basophils % % Neutrophils # (1.3-7.7) k/uL Lymphocytes # (1.0-4.8) k/uL Monocytes # (0-1.0) k/uL Eosinophils # (0-0.7) k/uL Basophils # (0-0.2) k/uL PT 10.6 (9.0-12.0) sec INR 1.0 (<1.2) APTT 24.1 (22.0-30.0) sec Sodium (137-145) mmol/L Potassium (3.5-5.1) mmol/L Chloride (98-107) mmol/L Carbon Dioxide (22-30) mmol/L Anion Gap mmol/L BUN (7-17) mg/dL Creatinine (0.52-1.04) mg/dL Est GFR (CKD-EPI)AfAm (>60 ml/min/1.73 sqM) Est GFR (CKD-EPI)NonAf (>60 ml/min/1.73 sqM) Glucose (74-99) mg/dL Plasma Lactic Acid Salvador (0.7-2.0) mmol/L Calcium (8.4-10.2) mg/dL Total Bilirubin (0.2-1.3) mg/dL AST (14-36) U/L ALT (9-52) U/L Alkaline Phosphatase (38-126) U/L Total Protein (6.3-8.2) g/dL Albumin (3.5-5.0) g/dL Amylase (30-110) U/L Lipase (23-300) U/L Urine Color Yellow Urine Appearance Clear (Clear) Urine pH 7.5 (5.0-8.0) Ur Specific [place] 1.019 (1.001-1.035) Urine Protein Negative (Negative) Urine Glucose (UA) Negative (Negative) Urine Ketones Negative (Negative) Urine Blood Negative (Negative) Urine Nitrite Negative (Negative) Urine Bilirubin Negative (Negative) Urine Urobilinogen <2.0 (<2.0) mg/dL Ur Leukocyte Esterase Negative (Negative) - Radiology Data Radiology results: report reviewed There are 3 new pelvic collections measuring up to 3.1 cm, 4 cm and 2.8 cm there closely associated with the sigmoid anastomotic site which were not present on preoperative CT. His most likely represent abscesses rather than postoperative seromas. Small amount of fat stranding remains in the pelvis. Disposition Clinical Impression: Intra-abdominal abscess, Post-op pain Disposition: ADMITTED IP TO THIS HOSP Condition: Stable Is patient prescribed a controlled substance at d/c from ED?: No Referrals: Nj Pineda MD [Primary Care Provider] - 1-2 days Time of Disposition: 12:42
[2019-02-20 10:38] LABS: Basophils # (A) 0.1 k/uL (0-0.2); Basophils % (A) 1 %; Eosinophils # (A) 0.2 k/uL (0-0.7); Eosinophils % (A) 2 %; HCT 34.4 % (34.0-46.0); HGB 11.2 gm/dL (11.4-16.0); Lymphocytes # (A) 2.8 k/uL (1.0-4.8); Lymphocytes % (A) 31 %; MCH 29.2 pg (25.0-35.0); MCHC 32.7 g/dL (31.0-37.0); MCV 89.3 fL (80.0-100.0); Monocytes # (A) 0.6 k/uL (0-1.0); Monocytes % (A) 6 %; Neutrophils # (A) 5.1 k/uL (1.3-7.7); Neutrophils % (A) 56 %; Platelet Count 390 k/uL (150-450); RBC 3.85 m/uL (3.80-5.40); RDW 12.2 % (11.5-15.5)
[2019-02-20 10:47] LABS: ALT 31 U/L (9-52); AST 30 U/L (14-36); African American GFR (CKD) >90 (>60 ml/min/1.73 sqM); Alkaline Phosphatase 90 U/L (38-126); Amylase 33 U/L (30-110); Anion Gap 10 mmol/L; Blood Urea Nitrogen 16 mg/dL (7-17); Calcium 9.8 mg/dL (8.4-10.2); Carbon Dioxide 24 mmol/L (22-30); Chloride 104 mmol/L (98-107); Glucose 104 mg/dL (74-99); Potassium 4.9 mmol/L (3.5-5.1); Sodium 138 mmol/L (137-145); Total Bilirubin 0.5 mg/dL (0.2-1.3); Total Protein 8.8 g/dL (6.3-8.2)
[2019-02-20 10:50] LABS: Partial Thromboplastin Time 24.1 sec (22.0-30.0); Prothrombin Time 10.6 sec (9.0-12.0)
[2019-02-20 10:50] LABS: Appearance,Urine Clear (Clear); Bilirubin,Urine Negative (Negative); Blood,Urine Negative (Negative); Color,Urine Yellow; Glucose,Urine (UA) Negative (Negative); Ketones,Urine Negative (Negative); Leukocyte Esterase,Urine Negative (Negative); Nitrite,Urine Negative (Negative); PH, Urine 7.5 (5.0-8.0); Protein,Urine Negative (Negative); Specific Gravity,Urine 1.019 (1.001-1.035); Urobilinogen,Urine <2.0 mg/dL (<2.0)
--- NOTE | 2019-02-20 11:48 | CT ---
EXAMINATION TYPE: CT abdomen pelvis w con DATE OF EXAM: 02/20/2019 HISTORY: Abdominal pain, post op-bowel resection (sigmoid) CT DLP: 962.8mGycm Automated Exposure Control for Dose Reduction was Utilized. CONTRAST: CT scan of the abdomen and pelvis is performed with IV Contrast, patient injected with 100 mL of Isov ue 300. COMPARISON: 09/13/2018 FINDINGS: LUNG BASES: Bibasilar dependent subsegmental atelectasis is seen. LIVER/GB: The liver enhances nearly homogeneously with few punctate 1 to 2 mm (2 small to accurately characterize lesions such as on image 20 in the right hepatic lobe and image 21 in the peripheral lat eral right hepatic. No cholelithiasis. PANCREAS: No significant abnormality is seen. SPLEEN: No splenomegaly. ADRENALS: No nodularity or thickening. KIDNEYS: Kidneys enhance and excrete symmetrically. BOWEL: There are 3 new fluid collections within the pelvis. The first measures 3.1 x 2.1 cm, the seco nd measures 3.1 x 4.0 cm, and the third measures 2.3 x 2.8 cm. These are closely associated with the suture line of the sigmoid colon on axial image 72 on the left and on axial images 70 through 66 on t he right. These were not present on the prior exam of 09/25/2018 and appear to be separate from the go mariann veins therefore presumed not to be ovarian in origin. There is some phlegmonous change remainin g pelvis. No subcutaneous fluid collection or abscess. There are numerous sigmoid diverticula seen wi thout focal pericolonic fat stranding some cluster loops of prominent small bowel in the left mid abd omen are likely on the basis of reactive ileus. LYMPH NODES: No greater than 1cm abdominal or pelvic lymph nodes are appreciated. OSSEOUS STRUCTURES: Moderate multilevel degenerative disc disease of the spine. Moderate to severe de generative changes of the hips. IMPRESSION: There are 3 new pelvic collections measuring up to 3.1 cm, 4.0 cm, and 2.8 cm that are cl osely associated with the sigmoid anastomotic site and were not present on the recent preoperative CT . These most likely represent abscesses rather than postoperative seromas. Small amount of fat strand ing remains in the pelvis.
[2019-02-20] MEDS ORDERED: PIPERACILLIN-TAZOBACTAM 3.375 GM in SODIUM CHLORIDE 0.9% 100 ML IVPB STA (12:32)
[2019-02-20] MEDS ORDERED: LORazepam 2 MG/ML INJ IV PRN (12:43)
[2019-02-20] MEDS ORDERED: ACETAMINOPHEN TAB 325 MG TAB PO PRN (12:43)
[2019-02-20] MEDS ORDERED: NALOXONE 0.4 MG/ML 1 ML VIAL IV PRN (12:43)
[2019-02-20] MEDS ORDERED: MORPHINE SULFATE 4 MG/ML SYRINGE IV PRN (12:43)
[2019-02-20] MEDS ORDERED: ONDANSETRON 4 MG/2 ML VIAL IVP PRN (12:43)
[2019-02-20] MEDS ORDERED: HYDROmorphone 1 MG/ML 1 ML SYRINGE IVP STA (12:45)
[2019-02-20] MEDS: SODIUM CHLORIDE 0.9% 1,000 ML IV SCH ×2 (13:29→21:23)
[2019-02-20 14:18] VITALS: BMI 27.3
--- NOTE | 2019-02-20 14:44 | P.GSHP ---
History of Present Illness H&P Date: 02/20/19 Chief Complaint: Abdominal pain 63-year-old female well known to our service. Patient underwent sigmoid colectomy approximately 4 weeks ago. Patient had been doing fairly well. Over the last week or so the patient has noticed some slight increase in lower abdominal discomfort. Noticed that she was walking around slightly bent over at times. She did return to work last week. She was being treated for mild irritation at her staple sites and was treated with Keflex for 7 days. Last dose approximately 10 days ago. Because she was feeling slightly more discomfort she came to the ER for evaluation. Has been tolerating her diet. Normal appetite. No nausea or vomiting. Normal bowel habits. No rectal bleeding. No fevers. Had some sweats one evening but such this happens to her occasionally even preoperatively. Patient came in for evaluation. White blood cell count normal. CAT scan was performed. The patient has 3-4 small fluid collections in the pelvis. Is mild enhancement seen. There is no air present in these fluid collections. It should be noted the patient's hemoglobin dropped 2 g postoperatively and we suspected some degree of surgical site oozing postoperatively. - Review of Systems Comment: The patient denies any acute changes in vision or hearing, no dysphagia or odynophagia, no chest pain or shortness of breath, no dysuria or hematuria, no headache, no runny nose, no rectal bleeding or melena, no unexplained weight loss Past Medical History Past Medical History: Chest Pain / Angina, GERD/Reflux Additional Past Medical History / Comment(s): Gastritis, diverticulosis, diverticulitis. History of Any Multi-Drug Resistant Organisms: None Reported Past Surgical History: Bowel Resection, Orthopedic Surgery Additional Past Surgical History / Comment(s): EGD, COLONOSCOPY, OVARIAN CYST (1991). right knee torn meniscus; Right cataract surgery Past Anesthesia/Blood Transfusion Reactions: Postoperative Nausea & Vomiting (PONV) Past Psychological History: Anxiety Additional Psychological History / Comment(s): Pt resides with her spouse. 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 She is independent. Smoking Status: Never smoker Past Alcohol Use History: Rare Additional Past Alcohol Use History / Comment(s): 2-3 DRINKS DAILY (BEER OR WINE); has never reported a withdrawl from alcohol Past Drug Use History: None Reported - Past Family History Mother Family Medical History: Deep Vein Thrombosis (DVT) Additional Family Medical History / Comment(s): . Father Family Medical History: Cancer Additional Family Medical History / Comment(s): LYMPHOMA. Daughter(s) Family Medical History: Cancer Additional Family Medical History / Comment(s): THYROID CANCER Medications and Allergies Home Medications Medication Instructions Recorded Confirmed Type Omeprazole [PriLOSEC] 20 mg PO AC-BRKFST 02/08/17 02/20/19 History Escitalopram [Lexapro] 20 mg PO DAILY 09/13/18 02/20/19 History Cholecalciferol [Vitamin D3 (25 5,000 unit PO DAILY 02/20/19 02/20/19 History Mcg = 1000 Iu)] L.acidoph,Paracasei, B.lactis 1 cap PO DAILY 02/20/19 02/20/19 History [Probiotic] Allergies Allergy/AdvReac Type Severity Reaction Status Date / Time No Known Allergies Allergy Verified 02/20/19 12:29 Surgical - Exam Vital Signs Temp Pulse Resp BP Pulse Ox 97.9 F 83 24 147/87 97 02/20/19 09:58 02/20/19 09:58 02/20/19 09:58 02/20/19 09:58 02/20/19 09:58 Physical exam: General: Well-developed, well-nourished HEENT: Normocephalic, sclerae nonicteric Abdomen: Mild tenderness lower abdomen and epigastric, incision clean and dry, nondistended Extremities: No edema Neuro: Alert and oriented Results - Labs 02/20/19 10:20 02/20/19 10:20 Abnormal Lab Results - Last 24 Hours (Table) 02/20/19 02/20/19 Range/Units 10:20 10:20 Hgb 11.2 L (11.4-16.0) gm/dL Glucose 104 H (74-99) mg/dL Total Protein 8.8 H (6.3-8.2) g/dL Diabetes panel 02/20/19 Range/Units 10:20 Sodium 138 (137-145) mmol/L Potassium 4.9 (3.5-5.1) mmol/L Chloride 104 (98-107) mmol/L Carbon Dioxide 24 (22-30) mmol/L BUN 16 (7-17) mg/dL Creatinine 0.55 (0.52-1.04) mg/dL Glucose 104 H (74-99) mg/dL Calcium 9.8 (8.4-10.2) mg/dL AST 30 (14-36) U/L ALT 31 (9-52) U/L Alkaline Phosphatase 90 (38-126) U/L Total Protein 8.8 H (6.3-8.2) g/dL Albumin 4.0 (3.5-5.0) g/dL Calcium panel 02/20/19 Range/Units 10:20 Calcium 9.8 (8.4-10.2) mg/dL Albumin 4.0 (3.5-5.0) g/dL Pituitary panel 02/20/19 Range/Units 10:20 Sodium 138 (137-145) mmol/L Potassium 4.9 (3.5-5.1) mmol/L Chloride 104 (98-107) mmol/L Carbon Dioxide 24 (22-30) mmol/L BUN 16 (7-17) mg/dL Creatinine 0.55 (0.52-1.04) mg/dL Glucose 104 H (74-99) mg/dL Calcium 9.8 (8.4-10.2) mg/dL Adrenal panel 02/20/19 Range/Units 10:20 Sodium 138 (137-145) mmol/L Potassium 4.9 (3.5-5.1) mmol/L Chloride 104 (98-107) mmol/L Carbon Dioxide 24 (22-30) mmol/L BUN 16 (7-17) mg/dL Creatinine 0.55 (0.52-1.04) mg/dL Glucose 104 H (74-99) mg/dL Calcium 9.8 (8.4-10.2) mg/dL Total Bilirubin 0.5 (0.2-1.3) mg/dL AST 30 (14-36) U/L ALT 31 (9-52) U/L Alkaline Phosphatase 90 (38-126) U/L Total Protein 8.8 H (6.3-8.2) g/dL Albumin 4.0 (3.5-5.0) g/dL Assessment and Plan (1) Post-op pain Narrative/Plan: Patient postoperative abdominal pain and CAT scan findings as described. Fluid collections may be related to postoperative bleeding with loculated areas of blood. Certainly some degree of infection cannot be excluded. For that reason will admit for IV antibiotic therapy. We'll consult infectious disease. Hopefully can discharge home 24-48 hours on oral antibiotics with plans for short-term follow-up CAT scan. Current Visit: Yes Status: Acute Code(s): G89.18 - OTHER ACUTE POSTPROCEDURAL PAIN SNOMED Code(s): 743932028
[2019-02-20] MEDS: PIPERACILLIN-TAZOBACTAM 3.375 GM in SODIUM CHLORIDE 0.9% 100 ML IVPB SCH (16:54)
[2019-02-20] MEDS: KETOROLAC 30 MG/ML 1 ML VIAL IVP PRN (17:01)
--- NOTE | 2019-02-20 23:39 | P.CONS ---
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 She has underwent a laparoscopic s igmoid colectomy. She has been having some chronic pain since the surgery and thought it was just related to the surgical procedure and was feeling well enough to try to get back to work. She worked a few shifts and then noticed that her abdominal pain was increased such that she sought further care. Because of this computed tomography scan was performed with evidence of 3 fluid collections that could be small abscess she was brought into hospital. Antibiotic therapy was started and consult was requested. The patient relates that she has no history of MRSA infection. She does not believe that she has had high-grade fever, chills or rigors. She did have some postoperative anemia after the surgical intervention. Review of Systems pleasant 63-year-old woman is not in significant distress HEENT:Denies headache or acute visual change. Denies sinus or mouth d iscomforts. Denies neck stiffness or pain. Denies significant oral cavity pain. Denies difficulty on swallowing. Lungs: Denies significant shortness of breath, cough, sputum production, or hemoptysis. Cardiovascular: Denies significant shortness of breath, chest pain, chest wall pain, orthopnea, dyspnea on exertion, syncope Gastrointestinal:Appetite is poor but no distinct nausea or emesis. She's had no hematemesis melena or hematochezia. He has had the progressive right lower quadrant abdominal pain. Musculoskeletal: denies significant myalgias or arthralgias. No new joint swelling. Denies new back pain. Skin: Denies new rash or lesions. No new ulcers or wounds are related.. Neuro: Denies headache or visual change. Denies any new onset weakness or difficulty with ambulation. Denies falls or seizures. Psychiatric:Denies anxiety or depression. Endocrine: Denies significant fatigue, denies significant weight loss or weight gain. Past Medical History Past Medical History: Chest Pain / Angina, GERD/Reflux Additional Past Medical History / Comment(s): Gastritis, diverticulosis, diverticulitis. History of Any Multi-Drug Resistant Organisms: None Reported Past Surgical History: Bowel Resection, Orthopedic Surgery Additional Past Surgical History / Comment(s): EGD, COLONOSCOPY, OVARIAN CYST (1991). right knee torn meniscus; Right cataract surgery Past Anesthesia/Blood Transfusion Reactions: Postoperative Nausea & Vomiting (PONV) Past Psychological History: Anxiety Additional Psychological History / Comment(s): Pt resides with her spouse. 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 She is independent. No recent travel history. Adult children. No recent animal exposures. No experience Smoking Status: Never smoker Past Alcohol Use History: Rare Additional Past Alcohol Use History / Comment(s): 2-3 DRINKS DAILY (BEER OR WINE); has never reported a withdrawl from alcohol Past Drug Use History: None Reported - Past Family History Mother Family Medical History: Deep Vein Thrombosis (DVT) Additional Family Medical History / Comment(s): . Father Family Medical History: Cancer Additional Family Medical History / Comment(s): LYMPHOMA. Daughter(s) Family Medical History: Cancer Additional Family Medical History / Comment(s): THYROID CANCER Medications and Allergies Home Medications and Allergies Comment(s): Current Medications Acetaminophen (Tylenol Tab) 650 mg PO Q6HR PRN PRN Reason: Mild Pain or Fever > 100.5 Piperacillin Sod/Tazobactam (Sod 3.375 gm/ Sodium Chloride) 100 mls @ 25 mls/hr IVPB Q8HR [facility] Last Admin: 02/20/19 16:54 Dose: 25 mls/hr Documented by: Sodium Chloride (Saline 0.9%) 1,000 mls @ 100 mls/hr IV .Q10H [facility] Last Admin: 02/20/19 21:23 Dose: 100 mls/hr Documented by: Ibuprofen (Motrin) 400 mg PO Q6HR PRN PRN Reason: Mild Pain or Fever > 100.5 Ketorolac Tromethamine (Toradol) 30 mg IVP Q6HR PRN PRN Reason: Moderate Pain Stop: 02/25/19 12:44 Last Admin: 02/20/19 17:01 Dose: 30 mg Documented by: Lorazepam (Ativan) 0.5 mg IV Q6HR PRN PRN Reason: Anxiety Morphine Sulfate (Morphine Sulfate (Inj)) 4 mg IV Q4HR PRN PRN Reason: Severe Pain Last Admin: 02/20/19 21:16 Dose: 4 mg Documented by: Naloxone HCl (Narcan) 0.2 mg IV Q2M PRN PRN Reason: Opioid Reversal Ondansetron HCl (Zofran) 4 mg IVP Q8HR PRN PRN Reason: Nausea And Vomiting Home Medications Medication Instructions Recorded Confirmed Type Omeprazole [PriLOSEC] 20 mg PO AC-BRKFST 02/08/17 02/20/19 History Escitalopram [Lexapro] 20 mg PO DAILY 09/13/18 02/20/19 History Cholecalciferol [Vitamin D3 (25 5,000 unit PO DAILY 02/20/19 02/20/19 History Mcg = 1000 Iu)] L.acidoph,Paracasei, B.lactis 1 cap PO DAILY 02/20/19 02/20/19 History [Probiotic] Allergies Allergy/AdvReac Type Severity Reaction Status Date / Time No Known Allergies Allergy Verified 02/20/19 12:29 Physical Exam Vitals: Vital Signs Temp Pulse Pulse Resp BP BP Pulse Ox 02/20/19 20:30 97.9 F 63 20 112/71 95 02/20/19 13:44 98.0 F 73 16 162/81 96 02/20/19 13:30 97.8 F 71 18 145/78 96 02/20/19 09:58 97.9 F 83 24 147/87 97 Intake and Output 02/20/19 02/20/19 02/21/19 14:59 22:59 06:59 Intake Total 540 Balance 540 Intake: Oral 540 Other: Voiding Method Toilet # Voids 1 Weight 72.212 kg very pleasant 63-year-old woman uncomfortable but not in severe di HEENT: Anicteric conjunctiva are pink and moist nasal mucosa grossly intact w ithout significant lesions, there is no thrush. Neck: The neck is supple without significant lymphadenopathy or thyromegaly. Lungs: Good bilateral air entry without significant crackles or wheezing. There is no significant bronchial sounds. There is no egophony or dullness. Heart: Regular rate and rhythm with an audible S1-S2, no S3 no S4. There is no significant murmur click or rub, PMI was nondisplaced. Abdomen: Positive bowel sounds The abdomen is soft it is very tender especially left lower quadrant but there is no palpable mass, no guarding or rebound. There is no flank tenderness. No abdominal wall bruising. Surgical incision is well-healed with some minimal irritation from the prior surgical chas but there is no evidence of abscess at any of these areas. Extremities: The upper extremities have excellent pulses they are symmetric, no significant petechiae or telangiectasia. No splinter hemorrhages were noted. The lower extremities are free from significant edema. The peripheral pulses were 2+ and symmetric. Neuro: Awake alert oriented to person place and time. There are no acute new gross focal sensory motor deficits. Results CBC & Chem 7: 02/20/19 10:20 02/20/19 10:20 Labs: Abnormal Lab Results - Last 24 Hours (Table) 02/20/19 02/20/19 Range/Units 10:20 10:20 Hgb 11.2 L (11.4-16.0) gm/dL Glucose 104 H (74-99) mg/dL Total Protein 8.8 H (6.3-8.2) g/dL Laboratory Results WBC 9.0 k/uL (3.8-10.6) 02/20/19 10:20 RBC 3.85 m/uL (3.80-5.40) 02/20/19 10:20 Hgb 11.2 gm/dL (11.4-16.0) L 02/20/19 10:20 Hct 34.4 % (34.0-46.0) 02/20/19 10:20 MCV 89.3 fL (80.0-100.0) 02/20/19 10:20 MCH 29.2 pg (25.0-35.0) 02/20/19 10:20 MCHC 32.7 g/dL (31.0-37.0) 02/20/19 10:20 RDW 12.2 % (11.5-15.5) 02/20/19 10:20 Plt Count 390 k/uL (150-450) 02/20/19 10:20 Neutrophils % 56 % 02/20/19 10:20 Lymphocytes % 31 % 02/20/19 10:20 Monocytes % 6 % 02/20/19 10:20 Eosinophils % 2 % 02/20/19 10:20 Basophils % 1 % 02/20/19 10:20 Neutrophils # 5.1 k/uL (1.3-7.7) 02/20/19 10:20 Lymphocytes # 2.8 k/uL (1.0-4.8) 02/20/19 10:20 Monocytes # 0.6 k/uL (0-1.0) 02/20/19 10:20 Eosinophils # 0.2 k/uL (0-0.7) 02/20/19 10:20 Basophils # 0.1 k/uL (0-0.2) 02/20/19 10:20 PT 10.6 sec (9.0-12.0) 02/20/19 10:20 INR 1.0 (<1.2) 02/20/19 10:20 APTT 24.1 sec (22.0-30.0) 02/20/19 10:20 Sodium 138 mmol/L (137-145) 02/20/19 10:20 Potassium 4.9 mmol/L (3.5-5.1) 02/20/19 10:20 Chloride 104 mmol/L (98-107) 02/20/19 10:20 Carbon Dioxide 24 mmol/L (22-30) 02/20/19 10:20 Anion Gap 10 mmol/L 02/20/19 10:20 BUN 16 mg/dL (7-17) 02/20/19 10:20 Creatinine 0.55 mg/dL (0.52-1.04) 02/20/19 10:20 Est GFR (CKD-EPI)AfAm >90 (>60 ml/min/1.73 sqM) 02/20/19 10:20 Est GFR (CKD-EPI)NonAf >90 (>60 ml/min/1.73 sqM) 02/20/19 10:20 Glucose 104 mg/dL (74-99) H 02/20/19 10:20 Plasma Lactic Acid [place] 1.0 mmol/L (0.7-2.0) 02/20/19 10:20 Calcium 9.8 mg/dL (8.4-10.2) 02/20/19 10:20 Total Bilirubin 0.5 mg/dL (0.2-1.3) 02/20/19 10:20 AST 30 U/L (14-36) 02/20/19 10:20 ALT 31 U/L (9-52) 02/20/19 10:20 Alkaline Phosphatase 90 U/L (38-126) 02/20/19 10:20 Total Protein 8.8 g/dL (6.3-8.2) H 02/20/19 10:20 Albumin 4.0 g/dL (3.5-5.0) 02/20/19 10:20 Amylase 33 U/L (30-110) 02/20/19 10:20 Lipase 133 U/L (23-300) 02/20/19 10:20 Urine Color Yellow 02/20/19 10:38 Urine Appearance Clear (Clear) 02/20/19 10:38 Urine pH 7.5 (5.0-8.0) 02/20/19 10:38 Ur Specific [place] 1.019 (1.001-1.035) 02/20/19 10:38 Urine Protein Negative (Negative) 02/20/19 10:38 Urine Glucose (UA) Negative (Negative) 02/20/19 10:38 Urine Ketones Negative (Negative) 02/20/19 10:38 Urine Blood Negative (Negative) 02/20/19 10:38 Urine Nitrite Negative (Negative) 02/20/19 10:38 Urine Bilirubin Negative (Negative) 02/20/19 10:38 Urine Urobilinogen <2.0 mg/dL (<2.0) 02/20/19 10:38 Ur Leukocyte Esterase Negative (Negative) 02/20/19 10:38 CT scan - abdomen: image reviewed (3 fluid collections are noted near the recent sigmoid anastomosis) Assessment and Plan (1) Intra-abdominal abscess Narrative/Plan: 63-year-old female who has a history of sigmoid diverticulitis and several events who has been taking the operating room in the sigmoid laparoscopic colectomy occurred. Postoperatively there was some blood loss anemia but generally did relatively well. The patient over states that she is having ongoing abdominal pain since the procedure. 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 She over now had increasing amounts of abdominal pain appetite was poor she does not believe she had high-grade fevers or chills but felt poorly enough that she presented. Computed tomography scan showed evidence of some fluid collection there is concerns for abdominal abscess. She is admitted for intravenous antibiotic therapy and monitoring. Toradol was added for some pain and anti-inflammatory effects. Her diet is as per the surgeon. At this time, do not believe there are plans for surgical intervention. Fever and labs to be monitiored.Case discussed with the attending surgeon. Current Visit: Yes Status: Acute Code(s): K65.1 - PERITONEAL ABSCESS SNOMED Code(s): 34520967 (2) Abdominal pain Current Visit: No Status: Acute Code(s): R10.9 - UNSPECIFIED ABDOMINAL PAIN SNOMED Code(s): 86452258 (3) Diverticulitis Current Visit: No Status: Acute Code(s): K57.92 - DVTRCLI OF INTEST, PART UNSP, W/O PERF OR ABSCESS W/O BLEED SNOMED Code(s): 346660845
[2019-02-21] MEDS: PIPERACILLIN-TAZOBACTAM 3.375 GM in SODIUM CHLORIDE 0.9% 100 ML IVPB SCH ×3 (00:40→16:59)
[2019-02-21] MEDS: KETOROLAC 30 MG/ML 1 ML VIAL IVP PRN ×2 (03:24→10:51)
[2019-02-21] MEDS: SODIUM CHLORIDE 0.9% 1,000 ML IV SCH ×2 (08:23→23:45)
[2019-02-21] MEDS: CHOLECALCIFEROL 1,000 UNIT TAB PO SCH ×2 (10:47→10:50)
[2019-02-21] MEDS: ESCITALOPRAM 20 MG TAB PO SCH (10:48)
[2019-02-21] MEDS: LACTOBACILLUS ACIDOPH & BULGAR 1 EACH PACKET PO SCH (10:48)
[2019-02-21] MEDS: PANTOPRAZOLE 40 MG TABLET PO SCH (10:51)
--- NOTE | 2019-02-21 11:06 | P.PN ---
<Cielo Mcneal - Last Filed: 02/21/19 11:00> Subjective Progress Note Date: 02/21/19 CHIEF COMPLAINT: Abdominal pain HISTORY OF PRESENT ILLNESS: Patient examined this morning at the bedside. She reports her pain is about the same as yesterday or slightly improved. She describes pain as a burning sensation to bilateral lower abdomen on each side of her incision. Tolerating diet. Denies nausea or vomiting. Vital signs stable. She is afebrile. PHYSICAL EXAM: VITAL SIGNS: Reviewed. GENERAL: Well-developed in no acute distress. HEENT: No sclera icterus. Extraocular movements grossly intact. Moist buccal mucosa. Head is atraumatic, normocephalic. ABDOMEN: Soft. Nondistended. Minimal tenderness with palpation of bilateral lower quadrants near incision site. Incision healing nicely without redness or drainage. Positive bowel sounds. NEUROLOGIC: Alert and oriented. Cranial nerves II through XII grossly intact. ASSESSMENT: 1. Recent sigmoid colectomy with acute blood loss anemia postoperatively secondary to surgical site oozing 2. Postoperative pain PLAN: 1. Continue diet as tolerated 2. Continue antibiotics 3. Dr. Adhikari, infectious disease, following 4. Anticipate discharge home this afternoon versus tomorrow Nurse practitioner note has been reviewed by physician. Signing provider agrees with the documented findings, assessment, and plan of care. Objective - Vital Signs Vital signs: Vital Signs Temp 98.1 F 02/21/19 04:43 Pulse 79 02/21/19 04:43 Resp 20 02/21/19 04:43 BP 122/76 02/21/19 04:43 Pulse Ox 94 L 02/21/19 04:43 Intake & Output 02/20/19 02/21/19 02/21/19 18:59 06:59 18:59 Intake Total 540 Balance 540 Weight 72.212 kg Intake: Oral 540 Other: Voiding Method Toilet # Voids 1 4 - Labs CBC & Chem 7: 02/20/19 10:20 02/20/19 10:20 <Alen Felix - Last Filed: 02/21/19 13:00> Subjective As above. Patient says her pain is superficial in nature today. No fevers. Will recheck labs tomorrow. If white blood cell count remains normal and she is afebrile we'll discharge on oral antibiotics per infectious disease. Objective - Vital Signs Vital signs: Vital Signs Temp 98.1 F 02/21/19 04:43 Pulse 79 02/21/19 04:43 Resp 20 02/21/19 04:43 BP 122/76 02/21/19 04:43 Pulse Ox 94 L 02/21/19 04:43 Intake & Output 02/20/19 02/21/19 02/21/19 18:59 06:59 18:59 Intake Total 540 Balance 540 Weight 72.212 kg Intake: Oral 540 Other: Voiding Method Toilet # Voids 1 4 - Labs CBC & Chem 7: 02/20/19 10:20 02/20/19 10:20 Labs: Microbiology - Last 24 Hours (Table) 02/20/19 10:22 Blood Culture - Preliminary Blood No Growth after 24 hours Assessment and Plan (1) Post-op pain Current Visit: Yes Status: Acute Code(s): G89.18 - OTHER ACUTE POSTPROCEDURAL PAIN SNOMED Code(s): 707776167
[2019-02-21] MEDS: IBUPROFEN 400 MG TAB PO PRN ×2 (17:24→23:43)
--- NOTE | 2019-02-21 22:07 | P.PN ---
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 She has underwent a laparoscopic sigmoid colectomy. She has been having some chronic pain since the surgery and thought it was just related to the surgical procedure and was feeling well enough to try to get back to work. She worked a few shifts and then noticed that her abdominal pain was increased such that she sought further care. Because of this computed tomography scan was performed with evidence of 3 fluid collections that could be small abscess she was brought into hospital. Antibiotic therapy was started and consult was requested. The patient relates that she has no history of MRSA infection. She does not believe that she has had high-grade fever, chills or rigors. She did have some postoperative anemia after the surgical intervention. Objective - Vital Signs Vital signs: Vital Signs Temp 97.6 F 02/21/19 13:29 Pulse 88 02/21/19 13:29 Resp 16 02/21/19 13:29 BP 110/80 02/21/19 13:29 Pulse Ox 95 02/21/19 13:29 Intake & Output 02/21/19 02/21/19 02/22/19 06:59 18:59 06:59 Intake Total 540 Balance 540 Intake: Oral 540 Other: Voiding Method Toilet # Voids 4 1 - Exam very pleasant 63-year-old woman uncomfortable but not in severe di HEENT: Anicteric conjunctiva are pink and moist nasal mucosa grossly intact without significant lesions, there is no thrush. Neck: The neck is supple without significant lymphadenopathy or thyromegaly. Lungs: Good bilateral air entry without significant crackles or wheezing. There is no significant bronchial sounds. There is no egophony or dullness. Heart: Regular rate and rhythm with an audible S1-S2, no S3 no S4. There is no significant murmur click or rub, PMI was nondisplaced. Abdomen: Positive bowel sounds The abdomen is soft it is very tender especially left lower quadrant but there is no palpable mass, no guarding or rebound. There is no flank tenderness. No abdominal wall bruising. Surgical incision is well-healed with some minimal irritation from the prior surgical chas but there is no evidence of abscess at any of these areas. Extremities: The upper extremities have excellent pulses they are symmetric, no significant petechiae or telangiectasia. No splinter hemorrhages were noted. The lower extremities are free from significant edema. The peripheral pulses were 2+ and symmetric. Neuro: Awake alert oriented to person place and time. There are no acute new gross focal sensory motor deficits. - Labs CBC & Chem 7: 02/20/19 10:20 02/20/19 10:20 Labs: Microbiology - Last 24 Hours (Table) 02/20/19 10:22 Blood Culture - Preliminary Blood No Growth after 24 hours Laboratory Results WBC 9.0 k/uL (3.8-10.6) 02/20/19 10:20 RBC 3.85 m/uL (3.80-5.40) 02/20/19 10:20 Hgb 11.2 gm/dL (11.4-16.0) L 02/20/19 10:20 Hct 34.4 % (34.0-46.0) 02/20/19 10:20 MCV 89.3 fL (80.0-100.0) 02/20/19 10:20 MCH 29.2 pg (25.0-35.0) 02/20/19 10:20 MCHC 32.7 g/dL (31.0-37.0) 02/20/19 10:20 RDW 12.2 % (11.5-15.5) 02/20/19 10:20 Plt Count 390 k/uL (150-450) 02/20/19 10:20 Neutrophils % 56 % 02/20/19 10:20 Lymphocytes % 31 % 02/20/19 10:20 Monocytes % 6 % 02/20/19 10:20 Eosinophils % 2 % 02/20/19 10:20 Basophils % 1 % 02/20/19 10:20 Neutrophils # 5.1 k/uL (1.3-7.7) 02/20/19 10:20 Lymphocytes # 2.8 k/uL (1.0-4.8) 02/20/19 10:20 Monocytes # 0.6 k/uL (0-1.0) 02/20/19 10:20 Eosinophils # 0.2 k/uL (0-0.7) 02/20/19 10:20 Basophils # 0.1 k/uL (0-0.2) 02/20/19 10:20 PT 10.6 sec (9.0-12.0) 02/20/19 10:20 INR 1.0 (<1.2) 02/20/19 10:20 APTT 24.1 sec (22.0-30.0) 02/20/19 10:20 Sodium 138 mmol/L (137-145) 02/20/19 10:20 Potassium 4.9 mmol/L (3.5-5.1) 02/20/19 10:20 Chloride 104 mmol/L (98-107) 02/20/19 10:20 Carbon Dioxide 24 mmol/L (22-30) 02/20/19 10:20 Anion Gap 10 mmol/L 02/20/19 10:20 BUN 16 mg/dL (7-17) 02/20/19 10:20 Creatinine 0.55 mg/dL (0.52-1.04) 02/20/19 10:20 Est GFR (CKD-EPI)AfAm >90 (>60 ml/min/1.73 sqM) 02/20/19 10:20 Est GFR (CKD-EPI)NonAf >90 (>60 ml/min/1.73 sqM) 02/20/19 10:20 Glucose 104 mg/dL (74-99) H 02/20/19 10:20 Plasma Lactic Acid [place] 1.0 mmol/L (0.7-2.0) 02/20/19 10:20 Calcium 9.8 mg/dL (8.4-10.2) 02/20/19 10:20 Total Bilirubin 0.5 mg/dL (0.2-1.3) 02/20/19 10:20 AST 30 U/L (14-36) 02/20/19 10:20 ALT 31 U/L (9-52) 02/20/19 10:20 Alkaline Phosphatase 90 U/L (38-126) 02/20/19 10:20 Total Protein 8.8 g/dL (6.3-8.2) H 02/20/19 10:20 Albumin 4.0 g/dL (3.5-5.0) 02/20/19 10:20 Amylase 33 U/L (30-110) 02/20/19 10:20 Lipase 133 U/L (23-300) 02/20/19 10:20 Urine Color Yellow 02/20/19 10:38 Urine Appearance Clear (Clear) 02/20/19 10:38 Urine pH 7.5 (5.0-8.0) 02/20/19 10:38 Ur Specific [place] 1.019 (1.001-1.035) 02/20/19 10:38 Urine Protein Negative (Negative) 02/20/19 10:38 Urine Glucose (UA) Negative (Negative) 02/20/19 10:38 Urine Ketones Negative (Negative) 02/20/19 10:38 Urine Blood Negative (Negative) 02/20/19 10:38 Urine Nitrite Negative (Negative) 02/20/19 10:38 Urine Bilirubin Negative (Negative) 02/20/19 10:38 Urine Urobilinogen <2.0 mg/dL (<2.0) 02/20/19 10:38 Ur Leukocyte Esterase Negative (Negative) 02/20/19 10:38 Microbiology 02/20/19 10:22 Blood Blood Culture - Preliminary No Growth after 24 hours Assessment and Plan (1) Intra-abdominal abscess Narrative/Plan: 63-year-old female who has a history of sigmoid diverticulitis and several events who has been taking the operating room in the sigmoid laparoscopic colectomy occurred. Postoperatively there was some blood loss anemia but generally did relatively well. The patient over states that she is having ongoing abdominal pain since the procedure. 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 She over now had increasing amounts of abdominal pain appetite was poor she does not believe she had high-grade fevers or chills but felt poorly enough that she presented. Computed tomography scan showed evidence of some fluid collection there is concerns for abdominal abscess. She is admitted for intravenous antibiotic therapy and monitoring. Toradol was added for some pain and anti-inflammatory effects. Her diet is as per the surgeon. At this time, do not believe there are plans for surgical intervention. Fever and labs to be monitored. Case discussed with the attending surgeon. 02/21/2019 the patient feels slightly better today. The bowel pain is still rating about a level III. She's now had some access to regular food which she seems to be tolerating relatively well. She's having no nausea or emesis. She is not having steady and emesis but has had some loosening of her stool. We'll add in to the probiotic cholestyramine to see if this cannot bulk the stool and improves her discomforts. Toradol has offered only minimal pain relief. The blood work will be followed in the morning and then further plans. Current Visit: Yes Status: Acute Code(s): K65.1 - PERITONEAL ABSCESS SNOMED Code(s): 30274282 (2) Abdominal pain Current Visit: No Status: Acute Code(s): R10.9 - UNSPECIFIED ABDOMINAL PAIN SNOMED Code(s): 29199933 (3) Diverticulitis Current Visit: No Status: Acute Code(s): K57.92 - DVTRCLI OF INTEST, PART UNSP, W/O PERF OR ABSCESS W/O BLEED SNOMED Code(s): 068401272
[2019-02-21] MEDS: CHOLESTYRAMINE (WITH SUGAR) 4 GM PACKET PO SCH (23:43)
[2019-02-22] MEDS: PIPERACILLIN-TAZOBACTAM 3.375 GM in SODIUM CHLORIDE 0.9% 100 ML IVPB SCH ×2 (00:36→07:51)
[2019-02-22 04:34] VITALS: BP 120/74; PULSE 83; RESP 16; TEMP 97.8
[2019-02-22] MEDS: SODIUM CHLORIDE 0.9% 1,000 ML IV SCH ×2 (05:57→13:16)
[2019-02-22] MEDS: ESCITALOPRAM 20 MG TAB PO SCH (07:51)
[2019-02-22] MEDS: CHOLECALCIFEROL 1,000 UNIT TAB PO SCH (07:51)
[2019-02-22] MEDS: PANTOPRAZOLE 40 MG TABLET PO SCH (07:51)
[2019-02-22] MEDS: CHOLESTYRAMINE (WITH SUGAR) 4 GM PACKET PO SCH (07:53)
[2019-02-22] MEDS: LACTOBACILLUS ACIDOPH & BULGAR 1 EACH PACKET PO SCH (07:53)
[2019-02-22 08:06] LABS: Basophils % (A) 0 %; Eosinophils # (A) 0.1 k/uL (0-0.7); Eosinophils % (A) 1 %; Lymphocytes # (A) 1.9 k/uL (1.0-4.8); Lymphocytes % (A) 22 %; MCH 29.3 pg (25.0-35.0); MCHC 32.2 g/dL (31.0-37.0); MCV 90.7 fL (80.0-100.0); Mean Platelet Volume 5.9; Monocytes # (A) 0.4 k/uL (0-1.0); Monocytes % (A) 4 %; Neutrophils # (A) 5.9 k/uL (1.3-7.7); Neutrophils % (A) 70 %; Platelet Count 370 k/uL (150-450); RBC 3.75 m/uL (3.80-5.40); RDW 12.5 % (11.5-15.5); WBC 8.5 k/uL (3.8-10.6)
--- NOTE | 2019-02-22 11:56 | P.DS ---
<Cielo Mcneal - Last Filed: 02/22/19 11:53> Providers Expected date of discharge: 02/22/19 Hospital Course: 63-year-old female well known to our service. Patient underwent sigmoid colectomy approximately 4 weeks ago. Patient had been doing fairly well. Over the last week or so the patient has noticed some slight increase in lower abdominal discomfort. Noticed that she was walking around slightly bent over at times. She did return to work last week. She was being treated for mild irritation at her staple sites and was treated with Keflex for 7 days. Last dose approximately 10 days ago. Because she was feeling slightly more discomfort she came to the ER for evaluation. Has been tolerating her diet. Normal appetite. No nausea or vomiting. Normal bowel habits. No rectal bleeding. No fevers. Had some sweats one evening but such this happens to her occasionally even preoperatively. Patient came in for evaluation. White blood cell count normal. CAT scan was performed. The patient has 3-4 small fluid collections in the pelvis. Is mild enhancement seen. There is no air present in these fluid collections. It should be noted the patient's hemoglobin dropped 2 g postoperatively and we suspected some degree of surgical site oozing postoperatively. Patient was evaluated by infectious disease during hospitalization. Her white count has been within normal limits. Her pain has improved during hospitalization. She is stable for discharge home today on oral antibiotics per infectious disease recommendations. Patient also requesting Questran prescription at time of discharge. She is to follow up with Dr. Felix outpatient and will require repeat CT scan in the near future. Please see EMR for further hospital course details. Discharge Diagnosis: 1. Recent sigmoid colectomy with acute blood loss anemia postoperatively seco ndary to surgical site oozing 2. Postoperative pain Nurse practitioner note has been reviewed by physician. Signing provider agrees with the documented findings, assessment, and plan of care. Patient Condition at Discharge: Stable Plan - Discharge Summary New Discharge Prescriptions: New Cholestyramine (with Sugar) [Questran Packet] 4 gm PO TID BETWEEN MEALS #60 packet Amoxicillin/Potassium Clav [Augmentin 875-125 Tablet] 1 each PO Q12HR #10 tab No Action Omeprazole [PriLOSEC] 20 mg PO AC-BRKFST Escitalopram [Lexapro] 20 mg PO DAILY Cholecalciferol [Vitamin D3 (25 Mcg = 1000 Iu)] 5,000 unit PO DAILY LTimacidoph,Paracasei, B.lactis [Probiotic] 1 cap PO DAILY Discharge Medication List Omeprazole [PriLOSEC] 20 mg PO AC-BRKFST 02/08/17 [History] Escitalopram [Lexapro] 20 mg PO DAILY 09/13/18 [History] Cholecalciferol [Vitamin D3 (25 Mcg = 1000 Iu)] 5,000 unit PO DAILY 02/20/19 [History] L.acidoph,Paracasei, B.lactis [Probiotic] 1 cap PO DAILY 02/20/19 [History] Amoxicillin/Potassium Clav [Augmentin 875-125 Tablet] 1 each PO Q12HR #10 tab 02/22/19 [Rx] Cholestyramine (with Sugar) [Questran Packet] 4 gm PO TID BETWEEN MEALS #60 packet 02/22/19 [Rx] Follow up Appointment(s)/Referral(s): Alen Felix MD [Medical Doctor] - 2 Weeks Nj Pineda MD [Primary Care Provider] - 1-2 days Activity/Diet/Wound Care/Special Instructions: Please obtain antibiotic prescription from Dr. Adhikari prior to discharge Discharge Disposition: HOME SELF-CARE <Alen Felix - Last Filed: 02/22/19 13:47> Providers Date of admission: 02/20/19 13:06 Attending physician: Alen Felix Consults: 02/20/19 12:43 Consult Physician Stat Consulting Provider: Russell Adhikari Consult Reason/Comments: intraabdominal abscess Do you want consulting provider notified?: Yes Primary care physician: Nj Pineda - Discharge Diagnosis(es) (1) Post-op pain Status: Acute Hospital Course: As above. Patient doing well today. White blood cell count remains normal. She is afebrile. Plan discharge today. Outpatient oral antibiotics plan.
== END 2019-02-22 13:41 | disposition home or self-care (01) | DRG 920 ==
LOC: EC 09:54 → 4MS4W 13:06
PROVIDERS: ADMIT Surgery; ATTEND Surgery
DX: T81.89XA Other complications of procedures, not elsewhere classified, initial encounter (principal); D62 Acute posthemorrhagic anemia; Y83.8 Other surgical procedures as the cause of abnormal reaction of the patient, or of later complication, without mention of misadventure at the time of the procedure; F41.9 Anxiety disorder, unspecified; G89.29 Other chronic pain; Z79.899 Other long term (current) drug therapy; Z80.7 Family history of other malignant neoplasms of lymphoid, hematopoietic and related tissues; Z80.8 Family history of malignant neoplasm of other organs or systems; Z90.49 Acquired absence of other specified parts of digestive tract; Z98.41 Cataract extraction status, right eye
CPT/HCPCS: 36415; 74177; 80053; 81003; 82150; 83605; 83690; 85025; 85610; 85730; 87040; 96361; 96374; 99285

== ENCOUNTER → 2019-03-22 | Outpatient (CLI) | payer MEDICARE ==
[2019-03-22 07:35] LABS: African American GFR (CKD) >90 (>60 ml/min/1.73 sqM); Blood Urea Nitrogen 15 mg/dL (7-17); Non-African American GFR(CKD) >90 (>60 ml/min/1.73 sqM)
--- NOTE | 2019-03-22 10:14 | CT ---
EXAMINATION TYPE: CT abdomen pelvis w con DATE OF EXAM: 03/22/2019 COMPARISON: 02/20/2019 INDICATION: Follow up history of diverticulitis DLP: 538.3 mGycm, Automated exposure control for dose reduction was used. CONTRAST: 100 mL of Isovue 300. Study performed with Oral Contrast TECHNIQUE: Axial images were obtained from above the diaphragm to the pubic rami in the axial plane a t 5 mm thick sections. Reconstructed images are reviewed on the computer in the coronal plane. FINDINGS: Limited CT sections are obtained the lung bases. The lung bases are clear. CT ABDOMEN: Liver: Normal Spleen: Normal Pancreas: Normal Adrenal glands: The adrenal glands are normal. Gallbladder: Normal Kidneys: No masses are evident. No hydronephrosis is present. No cysts are present. Delayed images were obtained through the kidneys, which remain unremarkable. Aorta: Vascular calcification is within the aorta. Inferior vena cava: Normal. CT PELVIS: The previous area identified is diverticulitis there is a 2.1 cm 2.8 hypodensity. This collection is smaller than the 3.1 x4.0 cm area. A second area currently measures 1.4 cm x 2.2 transverse which is smaller than 2.3 x 2.8 cm. The third area may be air-filled without significant wall or adjacent infl ammatory changes. This is just superior to the anastomosis is best estimated to measure 2.2 x 2.2 cm, comparison with previous 2.1 x 3.1 cm. Appendix: Normal as visualized. Urinary bladder: Normal. Genitourinary structures: Uterus is unremarkable. Adnexal regions appear clear. Osseous structures: No suspicious lytic or sclerotic lesions. IMPRESSIONS: 1. Suspected pelvic abscesses appear to be diminished in size over the interval. One of these may martin ve resolved over the interval. 2. No new abnormal collections are evident. No suspicious inflammatory changes adjacent to the anasto mosis is not evident.
== END | disposition home or self-care (01) ==
LOC: RADCTMAIN 07:01
PROVIDERS: ATTEND Surgery
DX: K57.32 Diverticulitis of large intestine without perforation or abscess without bleeding (principal)
CPT/HCPCS: 82565; 84520; 74177; 36415; Q9967

== ENCOUNTER → 2020-01-18 | Outpatient (CLI) | payer MEDICARE ==
[2020-01-18 14:34] LABS: African American GFR (CKD) >90 (>60 ml/min/1.73 sqM); Blood Urea Nitrogen 13 mg/dL (7-17); Non-African American GFR(CKD) >90 (>60 ml/min/1.73 sqM)
--- NOTE | 2020-01-18 14:36 | XR ---
EXAMINATION TYPE: XR bone survey complete DATE OF EXAM: 01/18/2020 COMPARISON: NONE HISTORY: Check for multiple myeloma. Bony calvarium : 2 views of the bony calvarium demonstrate no lytic or blastic lesions. Spine: Two views of the cervical, thoracic and lumbar spines are submitted. Degenerative changes are seen throughout. No evidence for fracture or malalignment. No lytic or blastic lesion identified. PELVIS: Single view of the pelvis demonstrates no lytic or blastic lesions. UPPER EXTREMITIES: Two views of the upper extremities demonstrate no lytic or blastic lesions. LOWER EXTREMITIES: 2 views of the lower extremities demonstrate no lytic or blastic lesions. IMPRESSION: No suspicious lytic or blastic lesion identified.
--- NOTE | 2020-01-18 16:25 | CT ---
EXAMINATION TYPE: CT abdomen pelvis w con DATE OF EXAM: 01/18/2020 HISTORY: Generalized abdominal pain and nausea. History of diverticulitis. CT DLP: 824.8mGycm Automated Exposure Control for Dose Reduction was Utilized. CONTRAST: CT scan of the abdomen and pelvis is performed with IV Contrast, patient injected with 100ml mL of Is ovue 300. COMPARISON: CT abdomen and pelvis March 22, 2019 and older CTs FINDINGS: LUNG BASES: Calcified 3 mm left basilar nodular granuloma image 8 redemonstrated. Patchy bibasilar li near scarring and/or atelectasis. LIVER/GB: No significant abnormality is appreciated. PANCREAS: No significant abnormality is seen. SPLEEN: No significant abnormality is seen. ADRENALS: No significant abnormality is seen. KIDNEYS: No significant abnormality is seen. BOWEL: Oral contrast reaches level of the proximal sigmoid colon. No suspicious small large bowel dil atation. A few scattered residual diverticula in the remnant sigmoid colon. No CT evidence for acute diverticulitis Prior surgery with anastomosis distal sigmoid colon level axial image 70. UTERUS/ADNEXA: Anteverted uterus.. Scattered pelvic phleboliths. LYMPH NODES: No greater than 1cm abdominal or pelvic lymph nodes are appreciated. OSSEOUS STRUCTURES: Moderate disc space narrowing L4-L5 level. OTHER: No significant additional abnormality is seen. IMPRESSION: No bowel obstruction. Evidence of prior sigmoid colonic surgery. Some residual sigmoid co lonic diverticulosis, no convincing CT evidence for acute diverticulitis currently. No suspicious acu te findings.
== END | disposition home or self-care (01) ==
LOC: RADCTMAIN 13:41
PROVIDERS: ATTEND Internal Medicine Hematology & Oncology
DX: K57.30 Diverticulosis of large intestine without perforation or abscess without bleeding (principal); D47.2 Monoclonal gammopathy
CPT/HCPCS: 82565; 84520; 77075; 74177; 36415; Q9967

== ENCOUNTER 2020-01-30 11:20 | Day surgery (SDC) | payer MEDICARE ==
[2020-01-30 11:50] VITALS: RESP 16; TEMP 97.5
[2020-01-30] MEDS ORDERED: LACTATED RINGERS 1,000 ML IV ONE (11:50)
[2020-01-30] MEDS ORDERED: PROPOFOL 10 MG/ML 20 ML VIAL IV ONE (12:54)
[2020-01-30] MEDS ORDERED: LIDOCAINE 1% INJ 10MG/ML (20 ML MDV) ONE (12:54)
--- NOTE | 2020-01-30 13:29 | P.PCN ---
Date of Procedure: 01/30/20 Preoperative Diagnosis: Monoclonal Gammopathy Postoperative Diagnosis: Same Procedure(s) Performed: Bone marrow aspiration and biopsy Anesthesia: MAC Surgeon: Carlin Smith Rn Physician Office #1: Stated None Estimated Blood Loss (ml): 3 Pathology: other Condition: stable Disposition: same day Indications for Procedure: IgM monoclonal gammopathy Operative Findings: adequate samples Description of Procedure: the procedure was explained in detail to the patient in the office. She presented to the outpatient endoscopy suite for IV access and informed consent obtained. She was then placed in the left lateral decubitus position. Area over both posterior iliac crest was cleaned and prepped with chlorhexidine and sterile draping. IV sedation was then initiated. Local anesthesia was administered to the right posterior iliac crest with Xylocaine. A Jamshidi needle was then inserted and bone marrow aspirate obtained. The thickness of the crest was very able and the bone was quite sick with a sclerotic field. Therefore the patient required additional passes to obtain an adequate biopsy sample. hemostasis was easily achieved. Blood loss was minimal. Recovery from sedation was satisfactory. She appeared to have tolerated the procedure well without any obvious immediate complications.
[2020-01-30 13:49] VITALS: BP 126/79; PULSE 61
[2020-01-30 14:21] LABS: Basophils # (A) 0.1 k/uL (0-0.2); Basophils % (A) 1 %; Eosinophils # (A) 0.1 k/uL (0-0.7); Eosinophils % (A) 1 %; HCT 40.2 % (34.0-46.0); HGB 12.6 gm/dL (11.4-16.0); Lymphocytes # (A) 2.6 k/uL (1.0-4.8); Lymphocytes % (A) 33 %; MCH 29.2 pg (25.0-35.0); MCHC 31.5 g/dL (31.0-37.0); MCV 92.8 fL (80.0-100.0); Monocytes # (A) 0.6 k/uL (0-1.0); Monocytes % (A) 7 %; Neutrophils # (A) 4.5 k/uL (1.3-7.7); Neutrophils % (A) 56 %; Platelet Count 361 k/uL (150-450); RBC 4.33 m/uL (3.80-5.40); RDW 12.9 % (11.5-15.5); Reticulocyte % 0.8 % (0.5-2.0); WBC 7.9 k/uL (3.8-10.6)
== END 2020-01-30 14:06 | disposition home or self-care (01) ==
LOC: OR 11:20
PROVIDERS: ATTEND Internal Medicine Hematology & Oncology
DX: C85.10 Unspecified B-cell lymphoma, unspecified site (principal); D47.2 Monoclonal gammopathy; R10.30 Lower abdominal pain, unspecified; R14.0 Abdominal distension (gaseous); R19.7 Diarrhea, unspecified; R11.0 Nausea; R70.0 Elevated erythrocyte sedimentation rate; R77.1 Abnormality of globulin; F32.9 Major depressive disorder, single episode, unspecified; K21.9 Gastro-esophageal reflux disease without esophagitis; Z79.899 Other long term (current) drug therapy; Z90.49 Acquired absence of other specified parts of digestive tract; Z98.890 Other specified postprocedural states; Z86.19 Personal history of other infectious and parasitic diseases; Z78.0 Asymptomatic menopausal state; Z87.19 Personal history of other diseases of the digestive system; Z85.43 Personal history of malignant neoplasm of ovary; Z97.2 Presence of dental prosthetic device (complete) (partial); Z80.7 Family history of other malignant neoplasms of lymphoid, hematopoietic and related tissues; Z80.8 Family history of malignant neoplasm of other organs or systems
CPT/HCPCS: 85025; 85045; 38222; J2001; J2704

== ENCOUNTER → 2020-07-09 | Outpatient (CLI) | payer MEDICARE ==
[2020-07-09 19:42] LABS: Basophils # (A) 0.04 X 10*3/uL (0.00-0.10); Basophils % (A) 0.7 %; Eosinophils % (A) 1.6 %; HCT 35.1 % (37.2-46.3); HGB 10.9 g/dL (12.0-15.0); Lymphocytes # (A) 2.24 X 10*3/uL (0.90-5.00); Lymphocytes % (A) 36.5 %; MCH 28.3 pg (27.0-32.0); MCHC 31.1 g/dL (32.0-37.0); MCV 91.2 fL (80.0-97.0); Mean Platelet Volume 10.2 fL (9.5-12.2); Monocytes # (A) 0.73 X 10*3/uL (0.20-1.00); Monocytes % (A) 11.9 %; Neutrophils # (A) 3.02 X 10*3/uL (1.80-7.70); Neutrophils % (A) 49.1 %; Platelet Count 339 X 10*3/uL (140-440); RBC 3.85 X 10*6/uL (4.10-5.20); RDW 13.7 % (11.5-14.5); WBC 6.14 X 10*3/uL (4.50-10.00)
[2020-07-10 01:45] LABS: Protein, Total 7.8 g/dL (6.2-8.2)
[2020-07-10 05:05] LABS: African American GFR (CKD) 110.1 (60.0-200.0); Anion Gap 11.8 mmol/L (4.00-12.00); BUN/Creat Ratio 21.67 Ratio (12.00-20.00); Calcium 9.5 mg/dL (8.7-10.3); Carbon Dioxide 24.2 mmol/L (21.6-31.8); Potassium 4.7 mmol/L (3.5-5.5); Total Protein 7.8 g/dL (6.2-8.2)
[2020-07-10 05:06] LABS: Albumin 3.8 g/dL (3.80-4.90); Albumin/Globulin Ratio 0.95 (1.60-3.17); Total Bilirubin 0.6 mg/dL (0.3-1.2)
[2020-07-10 14:19] LABS: Free Kappa Lt Chain Qnt, Serum 0.21 mg/dL (0.33-1.94); Immunoglobulin A <25.5 mg/dL (60.0-350.0)
[2020-07-10 14:23] LABS: Albumin 3.61 g/dL (3.80-4.90); Gamma Globulin 2.71 g/dL (0.70-1.50)
== END | disposition home or self-care (01) ==
LOC: LABWHC1 10:18
PROVIDERS: ATTEND Nurse Practitioner Acute Care
DX: C88.0 Waldenstrom macroglobulinemia (principal); D47.2 Monoclonal gammopathy
CPT/HCPCS: 36415; 80053; 82784; 83883; 84165; 85025; 85810; 86334

== ENCOUNTER → 2020-09-04 | Outpatient (CLI) | payer MEDICARE ==
--- NOTE | 2020-09-08 08:59 | MM ---
Reason for exam: screening (asymptomatic). Last mammogram was performed 2 years and 2 months ago. History: Patient has history of other cancer at age 64. Physical Findings: A clinical breast exam by your physician is recommended on an annual basis and results should be correlated with mammographic findings. MG 3D Screening Mammo W/Cad Bilateral CC and MLO view(s) were taken. Prior study comparison: July 07, 2018, bilateral MG screening mammo w CAD. June 16, 2017, bilateral MG screening mammo w CAD. The breast tissue is heterogeneously dense. This may lower the sensitivity of mammography. There is no discrete abnormality. No significant changes when compared with prior studies. ASSESSMENT: Negative, BI-RAD 1 RECOMMENDATION: Routine screening mammogram of both breasts in 1 year.
== END | disposition home or self-care (01) ==
LOC: RADMAMWWP 07:55
PROVIDERS: ATTEND Internal Medicine
DX: Z12.31 Encounter for screening mammogram for malignant neoplasm of breast (principal)
CPT/HCPCS: 77063; 77067

== ENCOUNTER 2020-09-30 10:20 | Day surgery (SDC) | payer MEDICARE ==
[2020-09-25 15:42] VITALS: BMI 27.4
[~2020-09-30 10:20] MED LIST changes: -ALVIMOPAN 12 MG CAPSULE PO ONE; -DEXAMETHASONE SOD PHOSPHATE 10 MG/ML 1 ML VIAL IV ONE; -HEPARIN SODIUM,PORCINE 5,000 UNIT/ML 1 ML VIAL SQ ONE; +LACTATED RINGERS 1,000 ML IV SCH; +LIDOCAINE 1% (10MG/ML) FOR IV START INTRADERMA PRN; -LIDOCAINE 1% 20 ML VIAL (10MG/ML) FOR IV START INTRADERMA PRN; -MIDAZOLAM 2 MG/2 ML VIAL IV PRN; -fentaNYL (PF) 50 MCG/ML 2 ML AMP IV PRN; -metroNIDAZOLE-NS PMX 500 MG in SALINE 1 100ML.BAG IVPB ONE
[2020-09-30 11:20] VITALS: TEMP 97.8
[2020-09-30] MEDS ORDERED: ONDANSETRON 4 MG/2 ML VIAL ONE (11:20)
[2020-09-30] MEDS ORDERED: LIDOCAINE 1% INJ 10MG/ML (20 ML MDV) ONE (11:58)
[2020-09-30] MEDS ORDERED: PROPOFOL 10 MG/ML 20 ML VIAL IV ONE (11:58)
--- NOTE | 2020-09-30 12:04 | P.GSHP ---
History of Present Illness H&P Date: 09/30/20 Chief Complaint: Dhillon's esophagus, change in bowel habits Patient here today for upper and lower endoscopy. History of abdominal pain, nausea, Dhillon's esophagus, intermittent constipation and diarrhea. Underwent previous sigmoid colectomy for diverticulitis in 2019. Underwent last upper and lower endoscopy 2016 and was told she had Dhillon's esophagus. Past Medical History Past Medical History: Chest Pain / Angina, GERD/Reflux Additional Past Medical History / Comment(s): Gastritis, diverticulosis, diverticulitis. History of Any Multi-Drug Resistant Organisms: None Reported Past Surgical History: Bowel Resection, Orthopedic Surgery Additional Past Surgical History / Comment(s): EGD, COLONOSCOPY, OVARIAN CYST (1991). right knee torn meniscus; Right cataract surgery Past Anesthesia/Blood Transfusion Reactions: Postoperative Nausea & Vomiting (PONV) Past Alcohol Use History: Rare Past Drug Use History: None Reported - Past Family History Mother Family Medical History: Deep Vein Thrombosis (DVT) Additional Family Medical History / Comment(s): . Father Family Medical History: Cancer Additional Family Medical History / Comment(s): LYMPHOMA. Daughter(s) Family Medical History: Cancer Additional Family Medical History / Comment(s): THYROID CANCER Medications and Allergies Home Medications Medication Instructions Recorded Confirmed Type Omeprazole [PriLOSEC] 20 mg PO AC-BRKFST 02/08/17 09/30/20 History Escitalopram [Lexapro] 20 mg PO DAILY 09/13/18 09/30/20 History Cholecalciferol [Vitamin D3 (25 5,000 unit PO DAILY 02/20/19 09/30/20 History Mcg = 1000 Iu)] Calcium Polycarbophil [Fiber-Lax] 2 tab PO DAILY 09/25/20 09/30/20 History Allergies Allergy/AdvReac Type Severity Reaction Status Date / Time No Known Allergies Allergy Verified 09/25/20 15:36 Surgical - Exam Vital Signs Temp Pulse Resp BP Pulse Ox 97.8 F 88 16 153/79 94 L 09/30/20 11:17 09/30/20 11:17 09/30/20 11:17 09/30/20 11:09/30/20 11:17 Physical exam: General: Well-developed, well-nourished HEENT: Normocephalic, sclerae nonicteric Abdomen: Nontender, nondistended Extremities: No edema Neuro: Alert and oriented Assessment and Plan (1) Change in bowel habits Narrative/Plan: Will proceed with upper and lower endoscopy Current Visit: Yes Status: Acute Code(s): R19.4 - CHANGE IN BOWEL HABIT SNOMED Code(s): 215752034
--- NOTE | 2020-09-30 12:21 | P.PCN ---
Date of Procedure: 09/30/20 Procedure(s) Performed: PREOPERATIVE DIAGNOSIS: Dhillon's, abdominal pain, change in bowel habits POSTOPERATIVE DIAGNOSIS: Mild gastritis, gastric polyps, short segment Dhillon's esophagus, descending colon polyp, diverticulosis PROCEDURE: 1. EGD with biopsy 2. Colonoscopy with biopsy [place] [facility] [place] Alen Felix M.D. SPECIMENS: Antrum, gastric polyp, Dhillon's ENDOSCOPIC PROCEDURE: The patient was on the endoscopy table in the left decubitus position. The Olympus gastroscope was inserted into the oropharynx and passed under direct visualization to the region of the third portion of the duodenum. From that point the scope was slowly withdrawn inspecting all surfaces carefully. There were no neoplastic inflammatory or polypoid lesions throughout the duodenum. The pylorus was widely patent. The stomach was carefully inspected. There was mild gastritis present.. A biopsy of the antrum took place to rule out H. pylori. Patient had multiple small gastric polyps. None of these were greater than 1 cm. The largest was biopsied and the cold biopsy forceps. Retroflexion revealed a normal hiatus. The esophagus was then carefully examined. There was a short segment of Dhillon's esophagus measuring approximately 1 cm or less. A single biopsy of the tongue of Dhillon's was taken. The remainder of the esophagus appeared normal. The patient was kept on the endoscopy table in the left decubitus position. The Olympus colonoscope was inserted into the anus and passed under direct visualization to the base of the cecum. The appendiceal orifice was visualized. From that point the scope was slowly withdrawn inspecting all surfaces carefully. There were no neoplastic inflammatory or polypoid lesions throughout the cecum, ascending, and transverse colon. In the descending colon a small polyp was seen and removed using the cold biopsy forceps. The colorectal anastomosis was widely patent. The patient had mild diverticulosis. The patient was taken to the recovery room in stable condition per anesthesia guidelines. RECOMMENDATIONS: Resume diet. Continue antiacids.
[2020-09-30 12:59] VITALS: BP 105/67; PULSE 80; RESP 20
== END 2020-09-30 13:00 | disposition home or self-care (01) ==
LOC: ORWHC2ENDO 10:20
PROVIDERS: ATTEND Surgery
DX: Z12.11 Encounter for screening for malignant neoplasm of colon (principal); K63.5 Polyp of colon; K29.50 Unspecified chronic gastritis without bleeding; K21.00 Gastro-esophageal reflux disease with esophagitis, without bleeding; K22.70 Barrett's esophagus without dysplasia; K57.90 Diverticulosis of intestine, part unspecified, without perforation or abscess without bleeding; R19.7 Diarrhea, unspecified; K59.00 Constipation, unspecified; K31.7 Polyp of stomach and duodenum; Z79.899 Other long term (current) drug therapy; Z98.890 Other specified postprocedural states
CPT/HCPCS: 88305; 45380; 43239; J2405; J2001; J2704

== ENCOUNTER → 2021-01-16 | Outpatient (CLI) | payer MEDICARE ==
--- NOTE | 2021-01-16 13:56 | US ---
EXAMINATION TYPE: US venous doppler duplex LE BI DATE OF EXAM: 01/16/2021 1:27 PM COMPARISON: NONE CLINICAL HISTORY: M79.606 Pain in leg, unspecified. Pain. No hx of DVT. Patient not taking blood thin ners. SIDE PERFORMED: Bilateral TECHNIQUE: The lower extremity deep venous system is examined utilizing real time linear array sonog eddie with graded compression, doppler sonography and color-flow sonography. VESSELS IMAGED: Common Femoral Vein Deep Femoral Vein Greater Saphenous Vein * Femoral Vein Popliteal Vein Small Saphenous Vein * Proximal Calf Veins (* superficial vessels) Right Leg: Complex area seen right medial popliteal area: 2.5 x 1.2 x 0.6 cm. Rouleaux flow seen thr oughout veins imaged. No evidence of DVT in veins imaged at this time. Left Leg: Rouleaux flow seen throughout veins imaged. No evidence of DVT in veins imaged at this santiago e. IMPRESSION: 1. No deep venous thrombosis. 2. Rouleaux flow identified bilaterally. 3. Right popliteal cyst
== END | disposition home or self-care (01) ==
LOC: RADUSWWP 12:55
PROVIDERS: ATTEND Internal Medicine
DX: I87.2 Venous insufficiency (chronic) (peripheral) (principal); M71.21 Synovial cyst of popliteal space [Baker], right knee
CPT/HCPCS: 93970

== ENCOUNTER → 2021-01-26 | Outpatient (CLI) | payer MEDICARE ==
--- NOTE | 2021-01-26 08:29 | CT ---
EXAMINATION TYPE: CT brain wo con DATE OF EXAM: 01/26/2021 COMPARISON: None INDICATION: frontal headache DLP: 927.3 mGycm, Automated exposure control for dose reduction was used. CONTRAST: None CT of the brain is performed utilizing 3 mm thick sections through the posterior fossa and 3 mm thick sections through the remaining calvarium. Study is performed within 24 hours of arrival to the hosp ital. No abnormal hyperdensity is present to suggest an acute intracranial hemorrhage. No mass lesion is evident. No acute infarcts are evident. Ventricles and sulci are appropriate for the patient age. Paranasal sinuses and mastoid air cells within the [id number] are clear. IMPRESSIONS: 1. No acute intracranial process.
== END | disposition home or self-care (01) ==
LOC: RADCTMAIN 06:46
PROVIDERS: ATTEND Internal Medicine
DX: R51.9 Headache, unspecified (principal)
CPT/HCPCS: 70450

== ENCOUNTER → 2021-02-10 | Outpatient (CLI) | payer MEDICARE ==
[2021-02-10 18:51] LABS: Basophils # (A) 0.05 X 10*3/uL (0.00-0.10); Basophils % (A) 0.6 %; Eosinophils # (A) 0.08 X 10*3/uL (0.04-0.35); HCT 37.2 % (37.2-46.3); HGB 11.4 g/dL (12.0-15.0); Lymphocytes # (A) 2.36 X 10*3/uL (0.90-5.00); Lymphocytes % (A) 28.1 %; MCH 28.7 pg (27.0-32.0); MCHC 30.6 g/dL (32.0-37.0); MCV 93.7 fL (80.0-97.0); Mean Platelet Volume 9.9 fL (9.5-12.2); Monocytes # (A) 0.69 X 10*3/uL (0.20-1.00); Monocytes % (A) 8.2 %; Neutrophils # (A) 5.19 X 10*3/uL (1.80-7.70); Neutrophils % (A) 61.7 %; Platelet Count 379 X 10*3/uL (140-440); RBC 3.97 X 10*6/uL (4.10-5.20); RDW 13.7 % (11.5-14.5)
[2021-02-10 19:45] LABS: African American GFR (CKD) 110.8 (60.0-200.0); Albumin 4.1 g/dL (3.8-4.9); Albumin/Globulin Ratio 1.22 (1.60-3.17); Anion Gap 9.2 mmol/L (4.00-12.00); BUN/Creat Ratio 22.4 Ratio (12.00-20.00); Blood Urea Nitrogen 12.9 mg/dL (9.0-27.0); Calcium 9.6 mg/dL (8.7-10.3); Carbon Dioxide 26.5 mmol/L (21.6-31.8); Globulin 3.4 g/dL (1.6-3.3); Non-African American GFR(CKD) 95.6 (60.0-200.0); Potassium 4.8 mmol/L (3.5-5.5); Total Bilirubin 0.8 mg/dL (0.30-1.20); Total Protein 7.5 g/dL (6.2-8.2)
[2021-02-10 19:59] LABS: Protein, Total 7.6 g/dL (6.2-8.2)
[2021-02-11 01:15] LABS: Immunoglobulin A 12.5 mg/dL (60.0-350.0)
[2021-02-12 13:00] LABS: Free Kappa Lt Chain Qnt, Serum 0.41 mg/dL (0.33-1.94)
[2021-02-12 16:42] LABS: Albumin 3.99 g/dL (3.80-4.90); Gamma Globulin 2.17 g/dL (0.70-1.50)
== END | disposition home or self-care (01) ==
LOC: LABWHC1 10:15
PROVIDERS: ATTEND Internal Medicine
DX: C88.0 Waldenstrom macroglobulinemia (principal); D47.2 Monoclonal gammopathy
CPT/HCPCS: 36415; 80053; 82784; 83615; 83883; 84165; 85025; 85810; 86334

== ENCOUNTER 2021-04-20 15:50 | Emergency (ER) | payer MEDICARE ==
[2021-04-20 18:47] VITALS: TEMP 99.5
--- NOTE | 2021-04-20 19:54 | ED ---
General Adult HPI - General Chief complaint: Upper Respiratory Infection Stated complaint: wants covid test, sinus infection Time Seen by Provider: 04/20/21 19:11 Source: patient Mode of arrival: ambulatory Limitations: no limitations - History of Present Illness Initial comments: Dictation was produced using [employer] dictation software. please excuse any grammatical, word or spelling errors. Chief Complaint: 65-year-old who presents emergency department for cough headache and congestion History of Present Illness: 7-7-tjuf-old. She has past medical history of Waldenstrm's macroglobulinemia. She gets treated with frequent plasmapheresis. Over the last one week or so patient has been having symptoms of cough, nasal and chest congestion with frontal headache. She's been coughing up mucus streaked with blood. She states that several individuals interhospital have had similar symptoms. Since the headache is localized to the frontal area. He does feel nasal congestion per she is not sure if she is having symptoms of si nusitis. Patient reports having low-grade fevers. Denies any nausea or vomiting. The ROS documented in this emergency department record has been reviewed and confirmed by me. Those systems with pertinent positive or negative responses have been documented in the HPI. All other systems are other negative and/or noncontributory. PHYSICAL EXAM: General Impression: Alert and oriented x3, not in acute distress HEENT: Normocephalic atraumatic, extra-ocular movements intact, pupils equal and reactive to light bilaterally, mucous membranes moist. Cardiovascular: Heart regular rate and rhythm Chest: Able to complete full sentences, no retractions, no tachypnea, lungs are auscultation bilaterally Abdomen: abdomen soft, non-tender, non-distended, no organomegaly Musculoskeletal: Pulses present and equal in all extremities, no peripheral edema Motor: no focal deficits noted Neurological: CN II-XII grossly intact, no focal motor or sensory deficits noted Skin: Intact with no visualized rashes Psych: Normal affect and mood ED course: 65-year-old feel presents to the emergency department with respiratory infectious symptoms. Vital signs upon arrival shows findings within acceptable limits. Laboratory evaluation. CBC shows leukocytosis 12.6. Metabolic panel is unremarkable. Coag tests negative. Computed tomography scan of brain shows no acute cranial process. There is sinusitis. Chest x-ray shows subsegmental atelectasis at the lateral left lung base. Physical presentation consistent with URI with sinusitis. Patient given prescription for antibiotics. Patient agreeable with discharge. EKG interpretation: Ventricular rate 89, normal sinus rhythm,. Interval 140, QRS 82, QTC 418. No OK prolongation, no QTC prolongation, no ST or T-wave changes noted. Overall, this EKG is unremarkable - Related Data Home Medications Medication Instructions Recorded Confirmed Omeprazole [PriLOSEC] 20 mg PO AC-BRKFST 02/08/17 09/30/20 Escitalopram [Lexapro] 20 mg PO DAILY 09/13/18 09/30/20 Cholecalciferol [Vitamin D3 (25 5,000 unit PO DAILY 02/20/19 09/30/20 Mcg = 1000 Iu)] Calcium Polycarbophil [Fiber-Lax] 2 tab PO DAILY 09/25/20 09/30/20 Previous Rx's Medication Instructions Recorded Amoxic-Pot Clav 875-125Mg 1 tab PO BID 10 Days #20 tab 04/20/21 [Augmentin 875-125] Allergies Allergy/AdvReac Type Severity Reaction Status Date / Time No Known Allergies Allergy Verified 04/20/21 18:45 Review of Systems ROS Statement: Those systems with pertinent positive or pertinent negative responses have been documented in the HPI. ROS Other: All systems not noted in ROS Statement are negative. Past Medical History Past Medical History: Chest Pain / Angina, GERD/Reflux Additional Past Medical History / Comment(s): Gastritis, diverticulosis, diverticulitis. History of Any Multi-Drug Resistant Organisms: None Reported Past Surgical History: Bowel Resection, Orthopedic Surgery Additional Past Surgical History / Comment(s): EGD, COLONOSCOPY, OVARIAN CYST (1991). right knee torn meniscus; Right cataract surgery Past Anesthesia/Blood Transfusion Reactions: Postoperative Nausea & Vomiting (PONV) Past Psychological History: Anxiety Smoking Status: Never smoker Past Alcohol Use History: Rare Past Drug Use History: None Reported - Past Family History Mother Family Medical History: Deep Vein Thrombosis (DVT) Additional Family Medical History / Comment(s): . Father Family Medical History: Cancer Additional Family Medical History / Comment(s): LYMPHOMA. Daughter(s) Family Medical History: Cancer Additional Family Medical History / Comment(s): THYROID CANCER General Exam Limitations: no limitations Course Vital Signs 04/20/21 04/20/21 18:42 19:18 Temperature 99.5 F Pulse Rate 98 Respiratory 16 20 Rate Blood Pressure 134/79 O2 Sat by Pulse 95 Oximetry Medical Decision Making - Lab Data Result diagrams: 04/20/21 19:53 04/20/21 19:53 Lab Results 04/20/21 04/20/21 04/20/21 Range/Units 18:48 19:53 19:53 WBC 12.6 H (3.8-10.6) k/uL RBC 3.75 L (3.80-5.40) m/uL Hgb 11.3 L (11.4-16.0) gm/dL Hct 34.9 (34.0-46.0) % MCV 93.3 (80.0-100.0) fL MCH 30.0 (25.0-35.0) pg MCHC 32.2 (31.0-37.0) g/dL RDW 13.0 (11.5-15.5) % Plt Count 374 (150-450) k/uL MPV 6.8 Neutrophils % 70 % Lymphocytes % 21 % Monocytes % 6 % Eosinophils % 1 % Basophils % 0 % Neutrophils # 8.8 H (1.3-7.7) k/uL Lymphocytes # 2.6 (1.0-4.8) k/uL Monocytes # 0.7 (0-1.0) k/uL Eosinophils # 0.1 (0-0.7) k/uL Basophils # 0.0 (0-0.2) k/uL Sodium 134 L (137-145) mmol/L Potassium 4.5 (3.5-5.1) mmol/L Chloride 95 L (98-107) mmol/L Carbon Dioxide 28 (22-30) mmol/L Anion Gap 11 mmol/L BUN 6 L (7-17) mg/dL Creatinine 0.48 L (0.52-1.04) mg/dL Est GFR (CKD-EPI)AfAm >90 (>60 ml/min/1.73 sqM) Est GFR (CKD-EPI)NonAf >90 (>60 ml/min/1.73 sqM) Glucose 113 H (74-99) mg/dL Calcium 9.7 (8.4-10.2) mg/dL Coronavirus (PCR) Not Detected (Not Detectd) Disposition Clinical Impression: Sinusitis Disposition: HOME SELF-CARE Condition: Fair Instructions (If sedation given, give patient instructions): Upper Respiratory Infection (ED), Sinusitis (ED) Prescriptions: Amoxic-Pot Clav 875-125Mg [Augmentin 875-125] 1 tab PO BID 10 Days #20 tab Is patient prescribed a controlled substance at d/c from ED?: No Referrals: Megan Lim MD [Primary Care Provider] - 1-2 days
--- NOTE | 2021-04-20 20:04 | CT ---
EXAMINATION TYPE: CT brain wo con DATE OF EXAM: 04/20/2021 COMPARISON: 01/26/2021 HISTORY: Acute headache CT DLP: 1102.4 mGycm Automated exposure control for dose reduction was used. Images obtained of the brain without contrast. Ventricles have normal size. There is no mass effect or midline shift. There is no sign of intracrani al hemorrhage. Skull base is intact. There is normal aeration of the mastoid sinuses. Calvarium is in tact. There is extensive mucosal thickening in the sphenoid ethmoid and maxillary sinuses. IMPRESSION: Negative CT scan of the brain. There is sinusitis which is new compared to the old exam.
--- NOTE | 2021-04-20 20:05 | XR ---
EXAMINATION TYPE: XR chest 1V portable DATE OF EXAM: 04/20/2021 COMPARISON: NONE HISTORY: Cough TECHNIQUE: Single view FINDINGS: There is some mild interstitial density left lateral lung base. Heart and mediastinum are n ormal. There are no hilar masses. There is no heart failure. Bony thorax is intact. IMPRESSION: Mild subsegmental atelectasis lateral left lung base. Normal heart.
[2021-04-20 20:10] LABS: Basophils % (A) 0 %; Eosinophils # (A) 0.1 k/uL (0-0.7); Eosinophils % (A) 1 %; HCT 34.9 % (34.0-46.0); HGB 11.3 gm/dL (11.4-16.0); Lymphocytes # (A) 2.6 k/uL (1.0-4.8); Lymphocytes % (A) 21 %; MCHC 32.2 g/dL (31.0-37.0); MCV 93.3 fL (80.0-100.0); Mean Platelet Volume 6.8; Monocytes # (A) 0.7 k/uL (0-1.0); Monocytes % (A) 6 %; Neutrophils # (A) 8.8 k/uL (1.3-7.7); Neutrophils % (A) 70 %; Platelet Count 374 k/uL (150-450); RBC 3.75 m/uL (3.80-5.40); WBC 12.6 k/uL (3.8-10.6)
[2021-04-20 20:36] LABS: African American GFR (CKD) >90 (>60 ml/min/1.73 sqM); Anion Gap 11 mmol/L; Blood Urea Nitrogen 6 mg/dL (7-17); Calcium 9.7 mg/dL (8.4-10.2); Carbon Dioxide 28 mmol/L (22-30); Chloride 95 mmol/L (98-107); Glucose 113 mg/dL (74-99); Non-African American GFR(CKD) >90 (>60 ml/min/1.73 sqM); Potassium 4.5 mmol/L (3.5-5.1); Sodium 134 mmol/L (137-145)
[2021-04-20] MEDS ORDERED: AMOXIC-POT CLAV 875-125MG 1 EACH TAB PO STA (20:38)
[2021-04-20] MEDS ORDERED: cefTRIAXone IN SWFI 1,000 MG/10 ML SYRINGE IVP STA (20:38)
[2021-04-20] MEDS ORDERED: MORPHINE SULFATE 4 MG/ML SYRINGE IV STA (20:41)
[2021-04-20 21:46] VITALS: BP 130/77; PULSE 92; RESP 16
== END 2021-04-20 21:46 | disposition home or self-care (01) ==
LOC: EC 15:50
DX: J01.90 Acute sinusitis, unspecified (principal); K21.9 Gastro-esophageal reflux disease without esophagitis; F41.9 Anxiety disorder, unspecified; Z20.822 Contact with and (suspected) exposure to COVID-19
CPT/HCPCS: 99284; 96374; 96375; 36415; 93005; 80048; 85025; 87635; 71045; 70450; J2270; J0696

== ENCOUNTER → 2021-11-03 | Outpatient (CLI) | payer MEDICARE | END | disposition home or self-care (01) | LOC: RADMAMWWP 09:36 | PROVIDERS: ATTEND Family Medicine | DX: Z53.9 Procedure and treatment not carried out, unspecified reason (principal) ==

== ENCOUNTER 2022-12-24 07:17 | Day surgery (SDC) | payer MEDICARE ==
[2022-12-22 14:56] VITALS: BMI 26.2
[~2022-12-24 07:17] MED LIST changes: -LIDOCAINE 1% (10MG/ML) FOR IV START INTRADERMA PRN
[2022-12-24 07:58] VITALS: TEMP 97.2
[2022-12-24] MEDS ORDERED: PROPOFOL 10 MG/ML 20 ML VIAL IV ONE (08:08)
[2022-12-24] MEDS ORDERED: LIDOCAINE 2% INJ 20 MG/ML (2 ML VIAL) ONE (08:08)
--- NOTE | 2022-12-24 08:42 | P.PCN ---
Date of Procedure: 12/24/22 Procedure(s) Performed: Brief history: Patient is a pleasant 67-year-old white female scheduled for an elective upper endoscopy as well as colonoscopy as a part of evaluation of epigastric pain, GERD, intermittent nausea and chronic diarrhea for the last several months duration. She has history of non-Hodgkin's lymphoma and currently on immunotherapy for the last 18 months and since then has been having worsening diarrhea. She has bowel movements anywhere from 10-12 a day which are loose to watery in consistency but occasionally has normal bowel movements. No rectal bleeding. Procedure performed: Esophagogastroduodenoscopy with biopsy Colonoscopy with biopsy Preoperative diagnosis: GERD/epigastric pain/nausea Chronic diarrhea Anesthesia: MAC Procedure: After informed consent was obtained from the patient was brought into the endoscopy unit and IV sedation was administered by anesthesia under continuous monitoring. Initially upper endoscopy was done. The Olympus GF 160 video endoscope was inserted inserted into the mouth and esophagus intubated without any difficulty and was gradually advanced into the stomach and duodenum and carefully examined. The bulb and second part of the duodenum appeared normal. The scope was then withdrawn into the stomach adequately insufflated with air and upon careful examination the antrum had mild gastritis and biopsies were done from this area. In the gastric body and multiple gastric polyps noted which were biopsied. Rest of the body, cardia and fundus appeared normal. The scope was then withdrawn into the esophagus. The GE junction was located at 40 cm to the incisors. Small hiatal hernia noted. There was a 2 mm island of Dhillon's appearing mucosa just proximal to the GE junction that was biopsied. Rest of the esophagus appeared normal. Patient tolerated the procedure well. At this time the patient continued to remain sedation. Initial digital rectal examination was normal. Olympus CF 160 video colonoscope was then inserted into the rectum and gradually advanced to the cecum without any difficulty. Careful examination was performed as the scope was gradually being withdrawn. The prep was excellent. Terminal ileum was intubated and 20 cm visualized and appeared normal. The cecum, ascending colon, transverse colon, descending colon, sigmoid colon and rectum appeared normal. Scattered sigmoid diverticulosis. Random biopsies were done from ascending and descending colon to rule out microscopic/collagenous colitis. Retroflexion was performed in the rectum and no lesions were noted. Patient tolerated the procedure well. Impression: 1. Upper endoscopy revealed mild gastritis, multiple gastric polyps, small hiatal hernia and short segment Dhillon's esophagus 2. Colonoscopy revealed scattered sigmoid diverticulosis but no evidence of colitis or colorectal neoplasia Recommendations: Findings of this examination were discussed with the patient as well as her family. She was advised to follow with the biopsy results. She'll be seen in office in 2 weeks. Recommend repeat screening colonoscopy in 10 years.
[2022-12-24 09:07] VITALS: BP 116/69; PULSE 68; RESP 20
== END 2022-12-24 09:30 ==
LOC: ORWHC2ENDO 07:17
PROVIDERS: ATTEND Internal Medicine Gastroenterology
DX: K31.7 Polyp of stomach and duodenum (principal); K31.9 Disease of stomach and duodenum, unspecified; D72.820 Lymphocytosis (symptomatic); K90.0 Celiac disease; K21.00 Gastro-esophageal reflux disease with esophagitis, without bleeding; K44.9 Diaphragmatic hernia without obstruction or gangrene; K29.70 Gastritis, unspecified, without bleeding; K57.30 Diverticulosis of large intestine without perforation or abscess without bleeding; K22.70 Barrett's esophagus without dysplasia; F32.9 Major depressive disorder, single episode, unspecified; F41.9 Anxiety disorder, unspecified; Z79.899 Other long term (current) drug therapy; Z85.72 Personal history of non-Hodgkin lymphomas
CPT/HCPCS: 88305; 45380; 43239; J2704; J2001

== ENCOUNTER → 2023-01-12 | Outpatient (CLI) | payer MEDICARE ==
[2023-01-12 18:29] LABS: Gliadin AB IgA, Deaminated Negative (Negative); Gliadin AB IgA, Unit <0.5 U/mL; Gliadin AB IgG, Deaminated Negative (Negative); Gliadin AB IgG, Unit <0.4 U/mL
--- NOTE | 2023-01-13 18:42 | MM ---
Reason for Exam: Screening (asymptomatic). Last mammogram was performed 1 year(s) and 1 month(s) ago. Patient History: Menarche at age 12. First Full-Term at age 18. Postmenopausal. Risk Values: Shea 5 year model risk: 1.4%. NCI Lifetime model risk: 4.3%. Prior Study Comparison: 07/07/2018 Bilateral Screening Mammogram, [facility]. 09/04/2020 Bilateral Screening Mammogram, [facility]. 11/16/2021 Bilateral MG 3D screening mammo w/cad, [facility]. Tissue Density: The breast tissue is heterogeneously dense. This may lower the sensitivity of mammography. Findings: Analyzed By CAD. Unchanged global asymmetry right upper outer quadrant. There is no suspicious group of microcalcifications or new suspicious mass in either breast. Overall Assessment: Benign, BI-RAD 2 Management: Screening Mammogram of both breasts in 1 year. . Patient should continue monthly self-breast exams. A clinical breast exam by your physician is recommended on an annual basis. This exam should not preclude additional follow-up of suspicious palpable abnormalities. Note on Shea scores and lifetime risk: 1. A Shea score greater than 3% is considered moderate risk. If this is the case, consider specialist referral to assess eligibility for a risk reducing agent. 2. If overall lifetime risk for the development of breast cancer is 20% or higher, the patient may qualify for future screening with alternating mammogram and breast MRI. Electronically signed and approved by: Marysol Cleaning M.D. Radiologist
== END | disposition home or self-care (01) ==
LOC: LABWHC1 07:06
PROVIDERS: ATTEND Internal Medicine Gastroenterology
DX: Z12.31 Encounter for screening mammogram for malignant neoplasm of breast (principal); K21.9 Gastro-esophageal reflux disease without esophagitis; Z78.0 Asymptomatic menopausal state
CPT/HCPCS: 36415; 77063; 77067; 83516

== ENCOUNTER → 2024-04-23 | Outpatient (CLI) | payer MEDICARE ==
--- NOTE | 2024-04-23 17:25 | MR ---
EXAMINATION TYPE: MR brain wo con DATE OF EXAM: 04/23/2024 COMPARISON: CT brain April 20, 2021 HISTORY: Headaches getting worse, Dizziness, Forgetful, Hx Waldenstrom Macroglobulinemia TECHNIQUE: Multiplanar, multisequence imaging of the brain and brainstem is performed without IV cont rast. FINDINGS: Diffusion weighted images demonstrate no evidence of a recent infarct or other diffusion abnormality. The ventricular system and cisternal spaces are normal in size and appearance. The brain volume is a ge appropriate. There are a few small scattered foci of T2 hyperintensity seen throughout the white m atter bilaterally. Approximately 8 scattered lesions are seen. Midline structures demonstrate normal morphology. The craniocervical junction appears within normal limits. Normal vascular flow voids are present. Right-sided aphakia is redemonstrated. The paranasal sinuses are grossly clear currently. Nasal septum is slightly deviated to the left of midline. No alvarez picious opacification mastoid air cells bilaterally. IMPRESSION: There is mild nonspecific white matter change. [facility], , 04/23/2024 5:23 PM
== END | disposition home or self-care (01) ==
LOC: RADMRIMAIN 16:43
PROVIDERS: ATTEND Internal Medicine Hematology & Oncology
DX: D75.9 Disease of blood and blood-forming organs, unspecified (principal); G44.009 Cluster headache syndrome, unspecified, not intractable; R90.82 White matter disease, unspecified
CPT/HCPCS: 70551

== ENCOUNTER → 2024-07-23 | Outpatient (CLI) | payer MEDICARE ==
--- NOTE | 2024-07-23 10:47 | MM ---
Reason for Exam: Screening (asymptomatic). Last mammogram was performed 1 year(s) and 7 month(s) ago. Patient History: Menarche at age 12. First Full-Term at age 18. Postmenopausal. Risk Values: Shea 5 year model risk: 1.4%. NCI Lifetime model risk: 4.1%. Prior Study Comparison: 09/04/2020 Bilateral Screening Mammogram, [facility]. 11/16/2021 Bilateral MG 3D screening mammo w/cad, [facility]. 01/12/2023 Bilateral MG 3D screening mammo w/cad, [facility]. Tissue Density: The breasts are heterogeneously dense, which may obscure small masses. Findings: Analyzed By CAD. Global asymmetry upper quadrant right breast is unchanged. There is no suspicious group of microcalcifications or new suspicious mass in either breast. Overall Assessment: Benign, BI-RAD 2 Management: Screening Mammogram of both breasts in 1 year. Patient should continue monthly self-breast exams. A clinical breast exam by your physician is recommended on an annual basis. This exam should not preclude additional follow-up of suspicious palpable abnormalities. Note on Shea scores and lifetime risk: 1. A Shea score greater than 3% is considered moderate risk. If this is the case, consider specialist referral to assess eligibility for a risk reducing agent. 2. If overall lifetime risk for the development of breast cancer is 20% or higher, the patient may qualify for future screening with alternating mammogram and breast MRI. [facility], , 07/23/2024 10:44 AM. Electronically signed and approved by: Marysol Cleaning M.D. Radiologist
== END | disposition home or self-care (01) ==
LOC: RADMAMWWP 09:19
PROVIDERS: ATTEND Family Medicine
DX: Z12.31 Encounter for screening mammogram for malignant neoplasm of breast (principal); R92.333 Mammographic heterogeneous density, bilateral breasts; Z78.0 Asymptomatic menopausal state
CPT/HCPCS: 77063; 77067